=== PATIENT | female | born 1950 | race Caucasian/White ===

== ENCOUNTER 2016-10-03 19:27 | Inpatient (IN) | payer SELFPAY ==
--- NOTE | 2016-10-03 20:40 | RAD ---
Indication: Dizziness. CT of the brain was performed without IV contrast. Comparison is made with previous exam dated August 01, 2014. Ventricular structures are midline. No midline shift is noted. The extra-axial spaces are unremarkable. Hypodensity is noted in the right caudate nucleus and right frontal lobe as well as in the right occipital lobe. These likely represents old infarcts. No evidence of mass effect is noted in these areas. The left cerebrum is otherwise unremarkable. Brainstem and posterior fossa are unremarkable. Paranasal sinuses and mastoid air cells are well aerated. IMPRESSION: HYPODENSITIES IN THE RIGHT CAUDATE NUCLEUS AND RIGHT OCCIPITAL LOBE LIKELY REPRESENTS ENCEPHALOMALACIA FROM PRIOR INFARCT. NO ACUTE CHANGES ARE NOTED.
[2016-10-03 20:56] LABS: Hematocrit 45 % (35-47); Mean Corpuscular HGB Conc 34 g/dl (31-36); Mean Corpuscular Hemoglobin 30 pg (27-31); Mean Corpuscular Volume 90 fL (80-97); Mean Platelet Volume 8 um3 (7.4-10.4); Red Blood Count 4.98 10^6/ul (4.0-5.4); Red Cell Distribution Width 13 % (10.5-15); White Blood Count 8.1 10^3/ul (3.5-10.8)
[2016-10-03 21:06] LABS: PCO2 Arterial 55 mmHg (35-45)
[2016-10-03 21:13] LABS: Albumin 3.9 g/dL (3.2-5.2); Calcium 9.4 mg/dL (8.6-10.3); EGFR African American 93.1 (>60); EGFR Non-African American 72.4 (>60); Globulin 2.5 g/dL (2-4); Magnesium 1.7 mg/dL (1.9-2.7); Potassium 3.6 mmol/L (3.5-5.0); Total Bilirubin 0.4 mg/dL (0.2-1.0); Total Protein 6.4 g/dL (6.4-8.9)
[2016-10-03 21:14] LABS: Troponin I 0.01 ng/mL (<0.04)
--- NOTE | 2016-10-03 21:40 | RAD ---
Indication: Confusion. Single frontal view of the chest performed at 2045 hours was reviewed. Comparison is made with previous exam dated July 21, 2015. No mediastinal shift is noted. Heart is of normal size and configuration. Lung singer appear clear. IMPRESSION: NO ACTIVE CARDIOPULMONARY DISEASE IS NOTED.
[2016-10-03 21:44] LABS: TSH (Thyroid Stimulating Horm) 1.59 mcIU/mL (0.34-5.60)
[2016-10-03] MEDS ORDERED: Albuterol/Ipratropium NEB.SOL* Albuterol 2.5 MG/Ipratropium 0.5 MG 3 ML INH ONE (21:52)
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
[2016-10-03] MEDS ORDERED: methylPREDNISolone 125 MG* 2 ML VIAL IV ONE (21:54)
[2016-10-03] MEDS: NS 0.9% 1000 ML* 1,000 ML IV SCH (23:20)
[2016-10-04] MEDS: Heparin VIAL(*) 5000 UNITS/ML VIAL (FIVE THOUSAND) SUBCUT SCH ×3 (05:26→21:30)
[2016-10-04] MEDS: NS 0.9% 1000 ML* 1,000 ML IV SCH (11:23)
[2016-10-04] MEDS: hydrALAZINE IV* 20 MG/ML VIAL IV SLOW PU PRN ×2 (13:02→20:15)
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
[2016-10-04] MEDS: HYDROmorphone TAB* 2 MG PO PRN ×2 (18:30→22:53)
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
[2016-10-04] MEDS: Aspirin EC TAB* 325 MG PO SCH (22:45)
[2016-10-04] MEDS: Propranolol TAB* 20 MG PO SCH (22:46)
[2016-10-04] MEDS: Losartan TAB* 25 MG PO SCH (22:46)
[2016-10-04 22:48] LABS: Benzodiazepine Urine Screen None Detected (None Detect)
[2016-10-05] MEDS: Metoprolol Tartrate IV* 1 MG/ML 5 ML VIAL IV PRN ×2 (00:37→06:35)
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
[2016-10-05] MEDS ORDERED: hydrALAZINE IV* 20 MG/ML VIAL IV SLOW PU ONE (03:15)
[2016-10-05] MEDS: HYDROmorphone TAB* 2 MG PO PRN ×3 (03:26→17:01)
[2016-10-05] MEDS: amLODIPine TAB* 5 MG PO SCH (04:52)
[2016-10-05] MEDS: NS 0.9% 1000 ML* 1,000 ML IV SCH (05:08)
[2016-10-05] MEDS: Heparin VIAL(*) 5000 UNITS/ML VIAL (FIVE THOUSAND) SUBCUT SCH ×3 (05:08→20:56)
[2016-10-05 05:38] LABS: BUN/Creatinine Ratio 17.9 (8-20); Calcium 9.3 mg/dL (8.6-10.3); EGFR African American 138.5 (>60); EGFR Non-African American 107.7 (>60)
[2016-10-05] MEDS: cloNIDine TAB* 0.1 MG PO SCH ×3 (06:49→20:32)
[2016-10-05] MEDS ORDERED: Potassium Chlor TAB* 20 MEQ TAB.ER PO ONE (07:29)
[2016-10-05] MEDS: KCL 20 MEQ/100 ML IVPREMIX* 20 MEQ/100 ML BAG IV SCH ×2 (08:07→10:30)
[2016-10-05] MEDS: Aspirin EC TAB* 325 MG PO SCH (08:07)
[2016-10-05] MEDS: Losartan TAB* 25 MG PO SCH (08:08)
[2016-10-05] MEDS: Propranolol TAB* 20 MG PO SCH (08:08)
[2016-10-05] MEDS: hydrALAZINE IV* 20 MG/ML VIAL IV SLOW PU PRN (10:30)
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
--- NOTE | 2016-10-05 16:08 | RAD ---
INDICATION: Slurred speech. COMPARISON: Comparison is made with a prior MRI of the brain from August 03, [address] of the brain from October 03, 2016. TECHNIQUE: Sagittal T1, axial T1, T2, susceptibility, FLAIR and diffusion weighted images were obtained. FINDINGS: The ventricles, cisterns and sulci appear prominent consistent with age-related atrophy. There are small areas of encephalomalacia present within the right frontal lobe, right caudate nucleus and right occipital lobe most consistent with prior infarcts. No other focal abnormality or mass effect is seen. No areas of restricted diffusion are present. There is no evidence for acute infarct or hemorrhage. The visualized portion of the paranasal sinuses and mastoid air cells appear clear. IMPRESSION: MULTIPLE OLD INFARCTS, NO EVIDENCE FOR ACUTE FINDING.
[2016-10-05] MEDS ORDERED: Spiriva Inhaler DEVICE* 1 EACH DEVICE ONE (20:00)
[2016-10-05] MEDS: Propranolol TAB* 80 MG PO SCH (20:56)
[2016-10-05] MEDS ORDERED: Beclomethasone 80 MCG MDI(NF) 80 MCG/PUFF MDI INH SCH (21:00)
[2016-10-05] MEDS ORDERED: Budesonide/Formote 160/4.5(NF) MDI INH SCH (21:00)
[2016-10-06] MEDS: HYDROmorphone TAB* 2 MG PO PRN ×4 (00:34→14:24)
[2016-10-06] MEDS: hydrALAZINE IV* 20 MG/ML VIAL IV SLOW PU PRN (00:35)
[2016-10-06] MEDS: Mometasone/Formoter 200/5 MDI INH SCH ×3 (04:43→19:49)
[2016-10-06 05:16] LABS: BUN/Creatinine Ratio 20.6 (8-20); Calcium 9.5 mg/dL (8.6-10.3); EGFR African American 120.9 (>60); Magnesium 1.5 mg/dL (1.9-2.7); Potassium 3.5 mmol/L (3.5-5.0)
[2016-10-06] MEDS: Heparin VIAL(*) 5000 UNITS/ML VIAL (FIVE THOUSAND) SUBCUT SCH ×3 (05:42→21:44)
[2016-10-06] MEDS: Losartan TAB* 25 MG PO SCH (08:22)
[2016-10-06] MEDS: Aspirin EC TAB* 325 MG PO SCH (08:22)
[2016-10-06] MEDS: cloNIDine TAB* 0.1 MG PO SCH ×3 (08:23→21:39)
[2016-10-06] MEDS: Atorvastatin* 20 MG TAB PO SCH (08:23)
[2016-10-06] MEDS: amLODIPine TAB* 5 MG PO SCH (08:23)
[2016-10-06] MEDS: Potassium Chlor TAB* 20 MEQ TAB.ER PO SCH (08:23)
[2016-10-06] MEDS: Triamterene/HCTZ 37.5-25 MG* CAP PO SCH (08:53)
[2016-10-06] MEDS: Propranolol TAB* 80 MG PO SCH ×2 (08:53→21:39)
[2016-10-06] MEDS: Tiotropium CAP.INH* CAP.INH/18 MCG INH SCH (09:30)
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
[2016-10-06] MEDS: HYDROmorphone TAB* 4 MG PO PRN (21:39)
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
[2016-10-07] MEDS: HYDROmorphone TAB* 4 MG PO PRN ×2 (03:51→08:34)
[2016-10-07] MEDS: Heparin VIAL(*) 5000 UNITS/ML VIAL (FIVE THOUSAND) SUBCUT SCH ×2 (05:30→14:10)
[2016-10-07] MEDS ORDERED: Omeprazole CAP* 20 MG PO SCH (07:30)
[2016-10-07] MEDS: Mometasone/Formoter 200/5 MDI INH SCH (07:42)
[2016-10-07] MEDS: Tiotropium CAP.INH* CAP.INH/18 MCG INH SCH (07:44)
[2016-10-07] MEDS: Triamterene/HCTZ 37.5-25 MG* CAP PO SCH (08:30)
[2016-10-07] MEDS: Losartan TAB* 25 MG PO SCH (08:30)
[2016-10-07] MEDS: Atorvastatin* 20 MG TAB PO SCH ×2 (08:32→08:43)
[2016-10-07] MEDS: Aspirin EC TAB* 325 MG PO SCH (08:32)
[2016-10-07] MEDS: Propranolol TAB* 80 MG PO SCH (08:32)
[2016-10-07] MEDS: amLODIPine TAB* 5 MG PO SCH (08:33)
[2016-10-07] MEDS: cloNIDine TAB* 0.1 MG PO SCH ×2 (08:33→14:10)
[2016-10-07] MEDS: Potassium Chlor TAB* 20 MEQ TAB.ER PO SCH (08:33)
[2016-10-07] MEDS ORDERED: Pregabalin CAP(*) 100 MG PO SCH (09:00)
[2016-10-07] MEDS ORDERED: HYDROmorphone TAB* 4 MG PO PRN (11:55)
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
[2016-10-07 15:37] VITALS: BP 117/75
[2016-10-09] MEDS ORDERED: fentaNYL PATCHs 100 MCG/HR TRANSDERM SCH (09:00)
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
== END 2016-10-07 18:40 | disposition left against medical advice (07) | DRG 894 ==
LOC: ED 19:27 → MED 22:26 → OBSVTOIN 10-04 12:32 → MEDTELE 10-04 20:00
PROVIDERS: ADMIT Internal Medicine; ATTEND Internal Medicine
DX: F11.90 Opioid use, unspecified, uncomplicated (principal); G93.89 Other specified disorders of brain; I69.354 Hemiplegia and hemiparesis following cerebral infarction affecting left non-dominant side; E66.01 Morbid (severe) obesity due to excess calories; J44.9 Chronic obstructive pulmonary disease, unspecified; I10 Essential (primary) hypertension; G89.29 Other chronic pain; M54.9 Dorsalgia, unspecified; I25.10 Atherosclerotic heart disease of native coronary artery without angina pectoris; E78.00 Pure hypercholesterolemia, unspecified; K21.9 Gastro-esophageal reflux disease without esophagitis; M47.9 Spondylosis, unspecified; M19.012 Primary osteoarthritis, left shoulder; M19.011 Primary osteoarthritis, right shoulder; M17.0 Bilateral primary osteoarthritis of knee; G43.909 Migraine, unspecified, not intractable, without status migrainosus; G25.0 Essential tremor; R09.02 Hypoxemia; R47.81 Slurred speech; E87.6 Hypokalemia; F32.9 Major depressive disorder, single episode, unspecified; Z96.652 Presence of left artificial knee joint; F17.210 Nicotine dependence, cigarettes, uncomplicated; R40.2412 Glasgow coma scale score 13-15, at arrival to emergency department; E78.5 Hyperlipidemia, unspecified; Z68.25 Body mass index [BMI] 25.0-25.9, adult; Z90.721 Acquired absence of ovaries, unilateral; Z82.49 Family history of ischemic heart disease and other diseases of the circulatory system; Z88.6 Allergy status to analgesic agent; Z88.8 Allergy status to other drugs, medicaments and biological substances; Z85.118 Personal history of other malignant neoplasm of bronchus and lung; Z92.3 Personal history of irradiation; Z98.1 Arthrodesis status; Z90.49 Acquired absence of other specified parts of digestive tract; Z95.5 Presence of coronary angioplasty implant and graft; Z86.14 Personal history of Methicillin resistant Staphylococcus aureus infection; Z80.9 Family history of malignant neoplasm, unspecified; Z79.51 Long term (current) use of inhaled steroids
CPT/HCPCS: 36415; 36600; 70450; 70551; 71010; 80048; 80053; 80061; 80307; 82140; 82803; 83605; 83735; 83880; 84443; 84484; 85025; 85610; 85730; 93005; 94640; 94760; 94762; 99406; A9270-GY; G0378; J0360; J1644; J2930; J3480

== ENCOUNTER 2016-10-09 21:18 | Emergency (ER) | payer MEDICARE ==
[2016-10-09] MEDS ORDERED: NS 0.9% 1000 ML* 1,000 ML IV ONE (22:32)
[2016-10-09 22:33] LABS: Hematocrit 49 % (35-47); Hemoglobin 15.9 g/dl (12.0-16.0); Mean Corpuscular HGB Conc 33 g/dl (31-36); Mean Corpuscular Hemoglobin 30 pg (27-31); Mean Corpuscular Volume 91 fL (80-97); Mean Platelet Volume 9 um3 (7.4-10.4); Red Blood Count 5.32 10^6/ul (4.0-5.4); Red Cell Distribution Width 14 % (10.5-15); White Blood Count 9.3 10^3/ul (3.5-10.8)
[2016-10-09 22:43] LABS: ALT 44 U/L (7-52); AST 35 U/L (13-39); Albumin 4.1 g/dL (3.2-5.2); Alkaline Phosphatase 97 U/L (34-104); Anion Gap 9 mmol/L (2-11); Blood Urea Nitrogen 31 mg/dL (6-24); CO2 Carbon Dioxide 30 mmol/L (22-32); Calcium 9.3 mg/dL (8.6-10.3); Chloride 101 mmol/L (101-111); EGFR African American 50.2 (>60); Globulin 2.8 g/dL (2-4); Glucose 91 mg/dL (70-100); Potassium 3.7 mmol/L (3.5-5.0); Sodium 140 mmol/L (133-145); Total Protein 6.9 g/dL (6.4-8.9)
[2016-10-09 22:51] LABS: Creatine Kinase 47 U/L (10-223)
[2016-10-09 22:52] LABS: Troponin I 0.02 ng/mL (<0.04)
[2016-10-09 23:43] LABS: Alcohol < 10 mg/dL (<10)
[2016-10-10 02:47] LABS: Urine Bilirubin Negative (Negative); Urine Glucose Negative (Negative); Urine Nitrite Negative (Negative)
[2016-10-10 02:58] LABS: Benzodiazepine Urine Screen None Detected (None Detect)
--- NOTE | 2016-10-10 05:01 | ED ---
Felix Hart Alok, scribed for Hugo Cardona MD on 10/09/16 at 2306 . Adult Trauma - HPI Summary HPI Summary: 66F presents to the ED BIBA following fall from a standing position in her kitchen. Pt reportedly was reaching for something in the freezer when she lost her balance and fell with her walker falling on her right-side hip. Pt was unable to get up and used her life-alert to notify EMS. Pt was reportedly on the floor for approximately 15 minutes before being picked up by EMS. Pt states she was unable to get up due to chronic knee weakness. Pt notes chronic back pain. Pt denies head injury. Pt was last discharged from [facility] just yesterday and notes loss of balance all day today. Pt denies dizziness or confusion today. Pt denies neck pain, hip pain or knee pain. Pt denies CP or SOB. PMHx includes HTN. PSHx includes a knee replacement. Pt started her 3 day fentanyl patch yesterday and states she has not taken her regular Dilaudid today. Pt is on home O2. Pt takes aspirin but no other anti-coagulants. Pt smokes tobacco occasionally. - History of Current Complaint Chief Complaint: EDGeneral Stated Complaint: FALL Time Seen by Provider: 10/09/16 21:43 Hx Obtained From: Patient ?: No Mechanism of Injury: Fall Ambulatory at the Scene: Yes Onset/Duration: Started Hours Ago, Traumatic, Still Present Onset of Pain: Immediate Onset Severity: Moderate Current Severity: Moderate Pain Intensity: 0 Pain Scale Used: 0-10 Numeric Location: Abdomen/Pelvis Aggravating Factor(s): Nothing Alleviating Factor(s): Nothing Associated Signs & Symptoms: Negative: SOB, Chest Pain - Additional Pertinent History Primary Care Physician: [id number] - Allergy/Home Medications Allergies/Adverse Reactions: Allergies Allergy/AdvReac Type Severity Reaction Status Date / Time Adhesive Tape Allergy Intermediate Blisters Verified 08/06/16 14:39 Codeine Allergy Intermediate See Comment Verified 08/06/16 14:39 PMH/Surg Hx/FS Hx/Imm Hx Endocrine/Hematology History: Denies: Hx Diabetes Cardiovascular History: Reports: Hx Coronary Artery Disease, Hx Hypercholesterolemia, Hx Hypertension, Hx Rheumatic Fever, Other Cardiovascular Problems/Disorders - DR. MELÉNDEZ FOLLOWS Denies: Hx Congestive Heart Failure, Hx Pacemaker/ICD Respiratory History: Reports: Hx Asthma, Hx Chronic Obstructive Pulmonary Disease (COPD), Other Respiratory Problems/Disorders - LUNG CA GI History: Reports: Hx Gall Bladder Disease, Hx Gastroesophageal Reflux Disease - ON MEDICATION FOR History: Reports: Hx Kidney Infection Denies: Hx Renal Disease Musculoskeletal History: Reports: Hx Arthritis - BACK, LEFT SHOULDER, KNEES, RIGHT SHOULDER, Hx Back Problems, Hx Bursitis, Hx Tendonitis, Other Musculoskeletal History - Chronic low back pain, SURGERY ON RIGHT LEG FEMUR AND ANKLE. LUMBAR FUSION Sensory History: Reports: Hx Contacts or Glasses Denies: Hx Hearing Aid Opthamlomology History: Reports: Hx Contacts or Glasses Neurological History: Reports: Hx Headaches - HISTORY OF, Hx Migraine - HISTORY OF, Other Neuro Impairments/Disorders - left foot/leg numbness for months Psychiatric History: Reports: Hx Depression Denies: Hx Panic Disorder - Cancer History Cancer Type, Location and Year: LUNG CA 2014 Hx Chemotherapy: No Hx Radiation Therapy: Yes - W/ DR ALVAREZ Hx Palliative Cancer Treatment: No - Surgical History Surgery Procedure, Year, and Place: Tonsillectomy;. Appendectomy A CHILD;. D&C x4. Right leg fracture x 4 surgeries -[facility] (PINS TO RIGHT HIP. RIGHT LARGE CALCIUM DEPOSIT FORM FROM PIN PLACMENT REMOVED). Bunionectomy left foot. Ovarian Cystectomy-[facility]. Lumbar x2(1ST - FUSION; SECOND - SURG DUE TO MRSA). Cardiac Cath withStent Placement X4 STENTS ( [facility] - MR CONDITIONAL 5 FOR UP TO 3T -PER ENT Surgical 11/26/15). LEFT BREAST BIOPSY WITH CLIP - BENIGN -TUMOR REMOVED AT AGE 5-BENIGN. Left knee Arthroscopy-[facility]; Left Knee TKR. GALLBLADDER REMOVED;. Stent placement in Pancrease. 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 Denies: Hx Clostridium Difficile, Hx Hepatitis, Hx Human Immunodeficiency Virus (HIV), Hx Shingles, Hx Tuberculosis, Hx Known/Suspected VRE, Hx Known/ Suspected VRSA, History Other Infectious Disease, Traveled Outside the [place] in Last 30 Days - Family History Known Family History: Positive: Other - [place] - Social History Occupation: Retired Alcohol Use: None Substance Use Type: Reports: None Substance Use Comment - Amount & Last Used: fentanyl patch and hydromorphone Hx Tobacco Use: Yes - 08/2014 Smoking Status (MU): Light Every Day Tobacco Smoker Type: Cigarettes Amount Used/How Often: 1+ PPD X 40+ YEARS Length of Time of Smoking/Using Tobacco: 40 + years Have You Smoked in the Last Year: Yes Review of Systems Negative: Fever Negative: Chest Pain Negative: Shortness Of Breath Negative: Other - Neck, knee, or hip pain. Positive: chronic back pain Neurological: Other - Loss of balance. Negative: dizziness, confusion All Other Systems Reviewed And Are Negative: Yes Physical Exam - Summary Physical Exam Summary: The patient is well-nourished in no acute distress and in no acute pain. The skin is warm and dry and skin color reflects adequate perfusion. HEENT: The head is normocephalic and atraumatic. The pupils are equal and reactive. The conjunctivae are clear and without drainage. Nares are patent and without drainage. Mouth reveals moist mucous membranes and the throat is without erythema and exudate. Neck is supple with full range of motion and non-tender. There are no carotid bruits. There is no neck vein distension. No neck pain Respiratory: Chest is non-tender. Lungs are clear to auscultation and breath sounds are symmetrical and equal. Cardiovascular: Hear is regular rate and rhythm. There is no murmur or rub auscultated. There is no peripheral edema and pulses are symmetrical and equal. Abdomen: The abdomen is soft and non-tender. There are normal bowel sounds heard in all four quadrants and there is no organomegaly palpated. Musculoskeletal: Tenderness to lumbar spine. Extremities are non-tender with full range of motion and no weakness. There is good capillary refill. There is no peripheral edema or calf tenderness elicited. Hips non-tender full range of motion intact. Knees no swelling. Neurological: Patient is alert and oriented to person, place and time. The patient has symmetrical motor strength in all four extremities. Cranial nerves are grossly intact. Deep tendon reflexes are symmetrical and equal in all four extremities. Psychiatric: Speech appropriate. Triage Information Reviewed: Yes Vital Signs On Initial Exam: Initial Vitals Temp Pulse Resp BP Pulse Ox 97.7 F 66 16 114/78 97 10/09/16 21:18 10/09/16 21:18 10/09/16 21:18 10/09/16 21:18 10/09/16 21:18 Vital Signs Reviewed: Yes Diagnostics - Vital Signs Vital Signs Temp Pulse Resp BP Pulse Ox 10/09/16 22:00 62 14 91 10/09/16 21:35 61 9 89 10/09/16 21:20 97.7 F 66 16 114/78 97 10/09/16 21:18 97.7 F 66 16 114/78 97 - Laboratory Lab Results: Lab Results 10/09/16 10/09/16 Range/Units 21:45 21:45 WBC 9.3 (3.5-10.8) 10^3/ul RBC 5.32 (4.0-5.4) 10^6/ul Hgb 15.9 (12.0-16.0) g/dl Hct 49 H (35-47) % MCV 91 (80-97) fL MCH 30 (27-31) pg MCHC 33 (31-36) g/dl RDW 14 (10.5-15) % Plt Count 194 (150-450) 10^3/ul MPV 9 (7.4-10.4) um3 Neut % (Auto) 74.0 (38-83) % Lymph % (Auto) 17.1 L (25-47) % [place] % (Auto) 7.5 (1-9) % Eos % (Auto) 0.8 (0-6) % Baso % (Auto) 0.6 (0-2) % Absolute Neuts (auto) 6.9 (1.5-7.7) 10^3/ul Absolute Lymphs (auto) 1.6 (1.0-4.8) 10^3/ul Absolute Monos (auto) 0.7 (0-0.8) 10^3/ul Absolute Eos (auto) 0.1 (0-0.6) 10^3/ul Absolute Basos (auto) 0.1 (0-0.2) 10^3/ul Absolute Nucleated RBC 0.01 10^3/ul Nucleated RBC % 0.1 Sodium 140 (133-145) mmol/L Potassium 3.7 (3.5-5.0) mmol/L Chloride 101 (101-111) mmol/L Carbon Dioxide 30 (22-32) mmol/L Anion Gap 9 (2-11) mmol/L BUN 31 H (6-24) mg/dL Creatinine 1.35 H (0.51-0.95) mg/dL Est GFR ( Amer) 50.2 (>60) Est GFR (Non-Af Amer) 39.0 (>60) BUN/Creatinine Ratio 23.0 H (8-20) Glucose 91 (70-100) mg/dL Calcium 9.3 (8.6-10.3) mg/dL Total Bilirubin 0.40 (0.2-1.0) mg/dL AST 35 (13-39) U/L ALT 44 (7-52) U/L Alkaline Phosphatase 97 (34-104) U/L Total Creatine Kinase Pending Troponin I Pending Total Protein 6.9 (6.4-8.9) g/dL Albumin 4.1 (3.2-5.2) g/dL Globulin 2.8 (2-4) g/dL Albumin/Globulin Ratio 1.5 (1-3) Serum Alcohol Pending Result Diagrams: 10/09/16 21:45 10/09/16 21:45 Lab Statement: Any lab studies that have been ordered have been reviewed, and results considered in the medical decision making process. - EKG 2126 Cardiac Rate: NL - 63 bpm EKG Rhythm: Sinus Rhythm EKG Interpretation: L-axis. No STEMI. Re-Evaluation - Re-Evaluation First Eval Re-Evaluation Time: 01:31 Change: Improved Comment: Low O2 sat when supine. Pt wishes to go home. Will attempt to ambulate pt Second Eval Re-Evaluation Time: 03:26 Change: Improved Comment: Pt ambulated and would like to go home. Third Eval Re-Evaluation Time: 04:31 Change: Unchanged Comment: Pt feels unsafe going home and will remain at ED for social work specialist consult. Adult Trauma Course/Dx - Course Course Of Treatment: Pt presented following fall from standing position. Pt denied pain. Pt ambulated and will be discharged home with instructions to FU with PCP. Pt feels unsafe going home and will remain at ED for social work specialist consult. - Diagnoses Provider Diagnoses: Dehydration, Ambulatory dysfunction, Fall Discharge - Discharge Plan Condition: Stable Disposition: HOME Patient Education Materials: Fall Prevention (ED), Dehydration (ED) Referrals: Augustin Jeong MD [Primary Care Provider] - Additional Instructions: Please follow up with your primary care provider The documentation as recorded by the Felix stroud Alok accurately reflects the service I personally performed and the decisions made by me, Hugo Cardona MD.
[2016-10-10 07:15] VITALS: BP 137/93
== END 2016-10-10 08:09 | disposition home or self-care (01) ==
LOC: ED 21:18
DX: E86.0 Dehydration (principal); Z91.81 History of falling; F17.210 Nicotine dependence, cigarettes, uncomplicated
CPT/HCPCS: 36415; 80053; 80307; 80320; 81003; 82550; 84484; 85025; 93005; 96360; 99283; G0480

== ENCOUNTER 2016-11-08 00:18 | Inpatient (IN) | payer MEDICARE ==
[2016-11-08] MEDS ORDERED: NS 0.9% 1000 ML* 1,000 ML IV SCH (00:45)
[2016-11-08] MEDS ORDERED: Naloxone* 0.4 MG/ML 1 ML VIAL IV PUSH ONE (01:27)
[2016-11-08] MEDS ORDERED: Naloxone* 0.4 MG/ML 1 ML VIAL ONE (01:28)
[2016-11-08] MEDS ORDERED: Naloxone Nasal Spray* 4 MG/0.1 ML NASAL.SPR NASAL ONE (01:47)
[2016-11-08] MEDS: Naloxone Nasal Spray* 4 MG/0.1 ML NASAL.SPR NASAL PRN ×2 (01:53→02:10)
[2016-11-08] MEDS ORDERED: Dexamethasone IV* 10 MG in NS 0.9% 50 ML* 50 ML IVPB ONE (02:20)
[2016-11-08] MEDS ORDERED: Acetaminophen SUPP* 650 MG SUPP PR PRN (02:20)
[2016-11-08] MEDS ORDERED: Albuterol 2.5 MG/3 ML NEB.SOL* (0.083%) INH PRN (02:20)
[2016-11-08] MEDS ORDERED: Ondansetron INJ* 2 MG/ML VIAL IV PRN (02:24)
--- NOTE | 2016-11-08 02:29 | CONSULT ---
Neurological HPI - HPI Summary HPI Summary: 66F hx of lung Ca, R cortical CVA, CAD, & COPD who was admitted to [facility] 10/04-10/2016 for an episode where she was found in her car unresponsive that was ultimately felt to be 2nd excessive narcotics. In fact an MRI during that stay was read as no acute findings. Currently she is responsive only to noxious stimuli and no family is available. Per ED staff, she was found by her son to be unresponsive. EMS was called and found her to be responsive to painful stimuli. Upon arrival to ED she was noted to be wearing a 100mcg fentanyl patch which is unusual as she was noted to have a 75mcg patch at her last admission and recommendation at that time was to decrease her narcotics. Removal of the patch and IV naloxone did not improve her alertness. CT brain identifies a new hemorrhagic lesion in the R frontal lobe suspicious for hemorrhagic mass. - History of Current Complaint Hx Obtained From: Patient Hx Last Menstrual Period: unknown Pain Intensity: 0 - Additional Pertinent History Primary Care Physician: KEENA - Allergy/Home Medications Allergies/Adverse Reactions: Allergies Allergy/AdvReac Type Severity Reaction Status Date / Time Adhesive Tape Allergy Intermediate Blisters Verified 11/04/16 13:45 Codeine Allergy Intermediate See Comment Verified 11/04/16 13:45 Home Medications: Home Medications Medication Instructions Recorded Confirmed Type Flaxseed (Linseed) [Flax Seed Oil] 1,000 mg PO DAILY 08/01/14 11/04/16 History Pantoprazole TAB (NF) [Protonix 40 mg PO DAILY 08/01/14 11/04/16 History TAB (NF)] Propranolol TAB* [Inderal TAB*] 80 mg PO BID 08/01/14 11/04/16 History Rosuvastatin (NF) [Crestor (NF)] 5 mg PO DAILY 08/01/14 11/04/16 History fentaNYL PATCHs 100 MCG/HR* 100 mcg TOPICAL Q72HR 08/01/14 11/04/16 History [Duragesic Patch 100 Mcg/Hr *] Primidone TAB(*) [Mysoline TAB(*)] 100 mg PO BID 11/07/14 11/04/16 History Tiotropium CAP.INH* [Spiriva 1 cap.inh INH QAM 11/07/14 11/04/16 History CAP.INH*] Meloxicam(NF) [Mobic(NF)] 7.5 mg PO DAILY 11/14/14 11/04/16 History Pregabalin [Lyrica] 150 mg PO DAILY 11/14/14 11/04/16 History Beclomethasone 80 MCG MDI(NF) 1 puff INH BID 10/05/16 11/04/16 History [Qvar 80 MCG MDI(NF)] Budesonide/Formote 160/4.5(NF) 2 puff INH BID 10/05/16 11/04/16 History [Symbicort 160/4.5 (NF)] Multivitamins/Minerals TAB* [Thera 1 tab PO BID 10/05/16 11/04/16 History M Plus TAB*] Potassium Chloride Microencaps 20 meq PO DAILY 10/05/16 11/04/16 History [Klor-Con M20] Varenicline (NF) [Chantix 1 MG TAB 1 mg PO BID 10/05/16 11/04/16 History (NF)] HYDROmorphone TAB* [Dilaudid TAB*] 4 mg PO Q4H PRN 10/14/16 11/04/16 History Hydrochlorothiazide TAB* 1 dose PO DAILY 11/04/16 11/04/16 History Losartan TAB* [Cozaar TAB*] 25 mg PO DAILY 11/04/16 11/04/16 History Allergies: Allergies Allergy/AdvReac Type Severity Reaction Status Date / Time Adhesive Tape Allergy Intermediate Blisters Verified 11/04/16 13:45 Codeine Allergy Intermediate See Comment Verified 11/04/16 13:45 - Family History Family History: - Cancer History Cancer Type, Location and Year: LUNG CA 2014 Hx Chemotherapy: No Hx Radiation Therapy: Yes - W/ DR ALVAREZ Hx Palliative Cancer Treatment: No - Surgical History Surgery Procedure, Year, and Place: Tonsillectomy;. Appendectomy A CHILD;. D&C x4. Right leg fracture x 4 surgeries -[facility] (PINS TO RIGHT HIP. RIGHT LARGE CALCIUM DEPOSIT FORM FROM PIN PLACMENT REMOVED). Bunionectomy left foot. Ovarian Cystectomy-[facility]. Lumbar x2(1ST - FUSION; SECOND - SURG DUE TO MRSA). Cardiac Cath withStent Placement X4 STENTS ( [employer] [facility] - MR CONDITIONAL 5 FOR UP TO 3T -PER [employer] 11/26/15). LEFT BREAST BIOPSY WITH CLIP - BENIGN -TUMOR REMOVED AT AGE 5-BENIGN. Left knee Arthroscopy-[facility]; Left Knee TKR. GALLBLADDER REMOVED;. Stent placement in Pancrease. 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 Denies: Hx Clostridium Difficile, Hx Hepatitis, Hx Human Immunodeficiency Virus (HIV), Hx Shingles, Hx Tuberculosis, Hx Known/Suspected VRE, Hx Known/ Suspected VRSA, History Other Infectious Disease, Traveled Outside the [place] in Last 30 Days - Family History Known Family History: Positive: Other - CA - Social History Alcohol Use: None Substance Use Type: Reports: None Substance Use Comment - Amount & Last Used: fentanyl patch and hydromorphone Hx Tobacco Use: Yes - 08/2014 Smoking Status (MU): Current Some Day Smoker Type: Cigarettes Amount Used/How Often: 1-2 cigarettes/week Length of Time of Smoking/Using Tobacco: 40 + years Have You Smoked in the Last Year: Yes ROS Endocrine/Hematology History: Denies: Hx Diabetes Cardiovascular History: Reports: Hx Coronary Artery Disease, Hx Hypercholesterolemia, Hx Hypertension, Hx Rheumatic Fever, Other Cardiovascular Problems/Disorders - DR. MELÉNDEZ FOLLOWS Denies: Hx Congestive Heart Failure, Hx Pacemaker/ICD Respiratory History: Reports: Hx Asthma, Hx Chronic Obstructive Pulmonary Disease (COPD), Other Respiratory Problems/Disorders - LUNG CA GI History: Reports: Hx Gall Bladder Disease, Hx Gastroesophageal Reflux Disease - ON MEDICATION FOR History: Reports: Hx Kidney Infection Denies: Hx Renal Disease Musculoskeletal History: Reports: Hx Arthritis - BACK, LEFT SHOULDER, KNEES, RIGHT SHOULDER, Hx Back Problems, Hx Bursitis, Hx Tendonitis, Other Musculoskeletal History - Chronic low back pain, SURGERY ON RIGHT LEG FEMUR AND ANKLE. LUMBAR FUSION Sensory History: Reports: Hx Contacts or Glasses Denies: Hx Hearing Aid Opthamlomology History: Reports: Hx Contacts or Glasses Neurological History: Reports: Hx Headaches - HISTORY OF, Hx Migraine - HISTORY OF, Other Neuro Impairments/Disorders - left foot/leg numbness for months Psychiatric History: Reports: Hx Depression Denies: Hx Panic Disorder Physical Exam - Physical Exam Eye Exam: bilateral eye: EOMI ENT Exam: normal ENT inspection Respiratory: Chest non-tender Cardiovascular/Chest: regular rate, rhythm Gastrointestinal/Abdominal: soft Back Exam: normal inspection DTR: bicep (R): 1+, bicep (L): 1+, tricep (R): 1+, tricep (L): 1+, knee (R): 1+ , knee (L): 1+, ankle (R): 1+, ankle (L): 1+ Skin Exam: normal color Lab Results - Lab Results Lab Results: Vital Signs Temp 98.6 F 11/08/16 06:00 Pulse 118 11/08/16 04:30 Resp 21 11/08/16 06:00 BP 124/90 11/08/16 06:00 Pulse Ox 95 11/08/16 04:30 Intake & Output 11/07/16 11/07/16 11/08/16 07:59 19:59 07:59 Weight 157 lb 13.616 oz Drowsy ,O x self only cranial nerves symmetric light reflex, /, pupils ~2mm/minimally reactive weak but intact/symmetric corneal reflex intact facial symmetry hearing unable to assess intact gag reflex tongue ML motor: skiver hand Bilateal and move BLE coordination unable to assess sensory unable to assess Abnormal Lab Results 11/08/16 11/08/16 11/08/16 02:40 02:40 02:40 WBC 10.8 RBC 5.40 Hgb 16.7 H Hct 51 H MCV 94 MCH 31 MCHC 33 RDW 16 H Plt Count 197 MPV 8 Neut % (Auto) 88.4 H Lymph % (Auto) 4.9 L [place] % (Auto) 5.7 Eos % (Auto) 0.4 Baso % (Auto) 0.6 Absolute Neuts (auto) 9.6 H Absolute Lymphs (auto) 0.5 L Absolute Monos (auto) 0.6 Absolute Eos (auto) 0 Absolute Basos (auto) 0.1 Absolute Nucleated RBC 0.01 Nucleated RBC % 0.1 INR (Anticoag Therapy) 0.96 APTT 29.9 Sodium 135 Potassium 4.3 Chloride 97 L Carbon Dioxide 30 Anion Gap 8 BUN 20 Creatinine 0.74 Est GFR ( Amer) 100.4 Est GFR (Non-Af Amer) 78.0 BUN/Creatinine Ratio 27.0 H Glucose 99 Lactic Acid Calcium 9.3 Magnesium 1.7 L Total Bilirubin 0.70 AST 34 ALT 17 Alkaline Phosphatase 86 Ammonia Total Creatine Kinase 1374 H CK-MB (CK-2) 46.8 H Troponin I 0.35 H* C-Reactive Protein 300.12 H B-Natriuretic Peptide Total Protein 6.5 Albumin 3.5 Globulin 3.0 Albumin/Globulin Ratio 1.2 Lipase 16 TSH 0.58 Urine Color Urine Appearance Urine pH Ur Specific [place] Urine Protein Urine Ketones Urine Blood Urine Nitrate Urine Bilirubin Urine Urobilinogen Ur Leukocyte Esterase Urine Glucose Urine Ascorbic Acid Salicylates < 2.50 Urine Opiates Screen Acetaminophen < 15 Ur Barbiturates Screen Ur Phencyclidine Scrn Ur Amphetamines Screen U Benzodiazepines Scrn Urine Cocaine Screen U Cannabinoids Screen Serum Alcohol < 10 11/08/16 11/08/16 11/08/16 02:40 02:40 04:30 WBC RBC Hgb Hct MCV MCH MCHC RDW Plt Count MPV Neut % (Auto) Lymph % (Auto) [place] % (Auto) Eos % (Auto) Baso % (Auto) Absolute Neuts (auto) Absolute Lymphs (auto) Absolute Monos (auto) Absolute Eos (auto) Absolute Basos (auto) Absolute Nucleated RBC Nucleated RBC % INR (Anticoag Therapy) APTT Sodium Potassium Chloride Carbon Dioxide Anion Gap BUN Creatinine Est GFR ( Amer) Est GFR (Non-Af Amer) BUN/Creatinine Ratio Glucose Lactic Acid 1.6 Calcium Magnesium Total Bilirubin AST ALT Alkaline Phosphatase Ammonia 25 Total Creatine Kinase CK-MB (CK-2) Troponin I C-Reactive Protein B-Natriuretic Peptide 162 H Total Protein Albumin Globulin Albumin/Globulin Ratio Lipase TSH Urine Color Urine Appearance Urine pH Ur Specific [place] Urine Protein Urine Ketones Urine Blood Urine Nitrate Urine Bilirubin Urine Urobilinogen Ur Leukocyte Esterase Urine Glucose Urine Ascorbic Acid Salicylates Urine Opiates Screen Presumptive positive H Acetaminophen Ur Barbiturates Screen Presumptive positive H Ur Phencyclidine Scrn None detected Ur Amphetamines Screen None detected U Benzodiazepines Scrn None detected Urine Cocaine Screen None detected U Cannabinoids Screen None detected Serum Alcohol 11/08/16 04:30 WBC RBC Hgb Hct MCV MCH MCHC RDW Plt Count MPV Neut % (Auto) Lymph % (Auto) [place] % (Auto) Eos % (Auto) Baso % (Auto) Absolute Neuts (auto) Absolute Lymphs (auto) Absolute Monos (auto) Absolute Eos (auto) Absolute Basos (auto) Absolute Nucleated RBC Nucleated RBC % INR (Anticoag Therapy) APTT Sodium Potassium Chloride Carbon Dioxide Anion Gap BUN Creatinine Est GFR ( Amer) Est GFR (Non-Af Amer) BUN/Creatinine Ratio Glucose Lactic Acid Calcium Magnesium Total Bilirubin AST ALT Alkaline Phosphatase Ammonia Total Creatine Kinase CK-MB (CK-2) Troponin I C-Reactive Protein B-Natriuretic Peptide Total Protein Albumin Globulin Albumin/Globulin Ratio Lipase TSH Urine Color Yellow Urine Appearance Clear Urine pH 5.0 Ur Specific [place] 1.016 Urine Protein Negative Urine Ketones 1+ H Urine Blood Negative Urine Nitrate Negative Urine Bilirubin Negative Urine Urobilinogen Negative Ur Leukocyte Esterase Negative Urine Glucose Negative Urine Ascorbic Acid * H Salicylates Urine Opiates Screen Acetaminophen Ur Barbiturates Screen Ur Phencyclidine Scrn Ur Amphetamines Screen U Benzodiazepines Scrn Urine Cocaine Screen U Cannabinoids Screen Serum Alcohol CT showed right frontal high desity lesion 2.1 cm x 2.6 cm with mild edema, no significant ML shift Assessment and Plan - Assessment -: 66F, hx of back pain and lung cancer, found unresponsive and confusion, current drowsy, confused, oriented only to self, following commands and move all 4s CT showed right frontal high desity lesion 2.1 cm x 2.6 cm with mild edema, no significant ML shift, suspected brain mets, other primary or abscess need to be rule out Plan: MRI brain with and without contrast, tumor protocol and DWI/ADC Decadron 4q6 Keppre 750 mg bid SBP less 140 mmhg Lab workup including WBC, ESR and CRP Oncology consult, CT Chest and Abd/Pelvic for mets workup and staging After MRI confirm brain lesion, will discuss about future plan: surgical resection vs radiosurgery SRS +/- WBRT. If abscess, she need drainage Discuss with primary team. please call for any questions
[2016-11-08 02:58] LABS: Hematocrit 51 % (35-47); Hemoglobin 16.7 g/dl (12.0-16.0); Mean Corpuscular HGB Conc 33 g/dl (31-36); Mean Corpuscular Hemoglobin 31 pg (27-31); Mean Corpuscular Volume 94 fL (80-97); Mean Platelet Volume 8 um3 (7.4-10.4); Red Cell Distribution Width 16 % (10.5-15); White Blood Count 10.8 10^3/ul (3.5-10.8)
[2016-11-08 03:02] LABS: Add Diff/Slide Review? Slide Review Added; Comments Flag Yes
[2016-11-08 03:07] LABS: Acetaminophen < 15 mcg/mL; Alcohol < 10 mg/dL (<10); Salicylate < 2.50 mg/dL (<30)
[2016-11-08 03:08] LABS: ALT 17 U/L (7-52); AST 34 U/L (13-39); Albumin 3.5 g/dL (3.2-5.2); Alkaline Phosphatase 86 U/L (34-104); Ammonia 25 mol/L (16-53); Anion Gap 8 mmol/L (2-11); Blood Urea Nitrogen 20 mg/dL (6-24); C Reactive Protein 300.12 mg/L (< 5.00); CO2 Carbon Dioxide 30 mmol/L (22-32); Calcium 9.3 mg/dL (8.6-10.3); Chloride 97 mmol/L (101-111); Creatine Kinase 1374 U/L (10-223); EGFR African American 100.4 (>60); Glucose 99 mg/dL (70-100); Lipase 16 U/L (11.0-82.0); Magnesium 1.7 mg/dL (1.9-2.7); Potassium 4.3 mmol/L (3.5-5.0); Sodium 135 mmol/L (133-145); Total Protein 6.5 g/dL (6.4-8.9)
[2016-11-08 03:12] LABS: Troponin I 0.35 ng/mL (<0.04)
[2016-11-08 03:13] LABS: B Type Natriuretic Peptide 162 pg/mL
[2016-11-08 03:17] LABS: TSH (Thyroid Stimulating Horm) 0.58 mcIU/mL (0.34-5.60)
--- NOTE | 2016-11-08 03:21 | HP ---
H&P (Free Text) History and Physical: PCP: Jessica Jeong MD Oncology: Placido Steele MD Date/Time of Evaluation: 11/08/2016 0245 CC: unresponsive HPI: Mrs Mccullough is a 66YO female HX lung CA, R cortical CVA, CAD, & COPD who was admitted to [facility] 10/04-10/07/2016 for an episode where she was found in her car unresponsive that was ultimately felt to be 2nd excessive narcotics. In fact an MRI during that stay was read as no acute findings. Currently she is responsive only to noxious stimuli and no family is available. Per ED staff, she was found by her son to be unresponsive. EMS was called and found her to be responsive to painful stimuli. Upon arrival to ED she was noted to be wearing a 100mcg fentanyl patch which is unusual as she was noted to have a 75mcg patch at her last admission and recommendation at that time was to decrease her narcotics. Removal of the patch and IV naloxone did not improve her alertness. CT brain WO identifies a new hemorrhagic lesion in the R frontal lobe suspicious for hemorrhagic mass. PMedHx lung CA R cortical CVA COPD CAD HTN HLD GERD depression chronic pain syndrome Ambulatory Orders Flaxseed (Linseed) [Flax Seed Oil] 1,000 mg PO DAILY 08/01/14 Pantoprazole TAB (NF) [Protonix TAB (NF)] 40 mg PO DAILY 08/01/14 Propranolol TAB* [Inderal TAB*] 80 mg PO BID 08/01/14 Rosuvastatin (NF) [Crestor (NF)] 5 mg PO DAILY 08/01/14 fentaNYL PATCHs 100 MCG/HR* [Duragesic Patch 100 Mcg/Hr *] 100 mcg TOPICAL Q72HR 08/01/14 Primidone TAB(*) [Mysoline TAB(*)] 100 mg PO BID 11/07/14 Tiotropium CAP.INH* [Spiriva CAP.INH*] 1 cap.inh INH QAM 11/07/14 Meloxicam(NF) [Mobic(NF)] 7.5 mg PO DAILY 11/14/14 Pregabalin [Lyrica] 150 mg PO DAILY 11/14/14 Beclomethasone 80 MCG MDI(NF) [Qvar 80 MCG MDI(NF)] 1 puff INH BID 10/05/16 Budesonide/Formote 160/4.5(NF) [Symbicort 160/4.5 (NF)] 2 puff INH BID 10/05/16 Multivitamins/Minerals TAB* [Thera M Plus TAB*] 1 tab PO BID 10/05/16 Potassium Chloride Microencaps [Klor-Con M20] 20 meq PO DAILY 10/05/16 Varenicline (NF) [Chantix 1 MG TAB (NF)] 1 mg PO BID 10/05/16 HYDROmorphone TAB* [Dilaudid TAB*] 4 mg PO Q4H PRN 10/14/16 Hydrochlorothiazide TAB* 1 dose PO DAILY 11/04/16 Losartan TAB* [Cozaar TAB*] 25 mg PO DAILY 11/04/16 Allergies Adhesive Tape Allergy (Intermediate, Verified 11/04/16 13:45) Blisters tegaderm post-procedure Codeine Allergy (Intermediate, Verified 11/04/16 13:45) See Comment general malaise PSurgHx appendectomy bilateral oophorectomy L knee surgery R ankle bimalleolar ORIF SocHx: former smoker w/ >40PYHX, no alcohol or recreational drugs; marital status and living situation unable to obtain; full code status FamHx: positive for CAD ROS: as above, otherwise reviewed and all were negative Constitutional: NAD, normally developed, morbidly obese white female vitals: Vital Signs Temp 36.3 C 11/08/16 00:29 Pulse 112 11/08/16 02:08 Resp 21 11/08/16 02:00 BP 160/120 11/08/16 02:08 Pulse Ox 92 11/08/16 02:08 Intake & Output 11/07/16 11/07/16 11/08/16 11:59 23:59 11:59 Weight 113.398 kg HEENM: atraumatic; sclera/conjunctiva: non-icteric/clear; hearing: unable to assess; dentition: poor; oropharynx: clear, mucosa moist Neck: soft tissue: non-tender; thyroid: normal Pulmonary: clear to auscultation bilaterally, good to fair aeration, no accessory muscle use CV: RR/RR, normal S1S2, no carotid bruit, no jugular venous distention, 2+ B DP/ PT, trace BLE edema Abdominal: soft, non-distended, non-tender, no rebound/guarding/rigidity, normoactive bowel sounds, no hepatosplenomegaly or masses, no costovertebral angle tenderness Musculoskeletal: general: grossly intact; gait: unable to assess 2nd GCS 3 Integumental: normal appearance and texture of exposed skin Neurological cranial nerves III/IV/: symmetric light reflex, loss of occulocephalic reflex/, pupils ~2mm/ minimally reactive V: weak but intact/symmetric corneal reflex VII: intact facial symmetry VIII: hearing unable to assess IX/X: intact gag reflex motor: unknown handedness unable to assess coordination unable to assess sensory unable to assess DTRs biceps: triceps: brachioradialis: patellar: Achilles: Babinski: Psychiatric orientation: GCS 3, mild grimace to noxious stimuli affect: obtunded mood: not applicable eye contact: absent content: absent memory: unable to assess responses: grimaces to noxious stimuli insight: absent Testing: Lab Results 11/08/16 11/08/16 11/08/16 Range/Units 02:40 02:40 02:40 WBC 10.8 (3.5-10.8) 10^3/ul RBC 5.40 (4.0-5.4) 10^6/ul Hgb 16.7 H (12.0-16.0) g/dl Hct 51 H (35-47) % MCV 94 (80-97) fL MCH 31 (27-31) pg MCHC 33 (31-36) g/dl RDW 16 H (10.5-15) % Plt Count 197 (150-450) 10^3/ul MPV 8 (7.4-10.4) um3 Neut % (Auto) 88.4 H (38-83) % Lymph % (Auto) 4.9 L (25-47) % [place] % (Auto) 5.7 (1-9) % Eos % (Auto) 0.4 (0-6) % Baso % (Auto) 0.6 (0-2) % Absolute Neuts (auto) 9.6 H (1.5-7.7) 10^3/ul Absolute Lymphs (auto) 0.5 L (1.0-4.8) 10^3/ul Absolute Monos (auto) 0.6 (0-0.8) 10^3/ul Absolute Eos (auto) 0 (0-0.6) 10^3/ul Absolute Basos (auto) 0.1 (0-0.2) 10^3/ul Absolute Nucleated RBC 0.01 10^3/ul Nucleated RBC % 0.1 INR (Anticoag Therapy) 0.96 (0.89-1.11) APTT 29.9 (26.0-36.3) seconds Sodium Pending Potassium Pending Chloride Pending Carbon Dioxide Pending Anion Gap Pending BUN Pending Creatinine Pending Est GFR ( Amer) Pending Est GFR (Non-Af Amer) Pending BUN/Creatinine Ratio Pending Glucose Pending Lactic Acid (0.5-2.0) mmol/L Calcium Pending Magnesium Pending Total Bilirubin Pending AST Pending ALT Pending Alkaline Phosphatase Pending Total Creatine Kinase Pending CK-MB (CK-2) Pending Troponin I Pending C-Reactive Protein Pending Total Protein Pending Albumin Pending Globulin Pending Albumin/Globulin Ratio Pending Lipase Pending TSH Pending Salicylates < 2.50 (<30) mg/dL Acetaminophen < 15 mcg/mL Serum Alcohol < 10 (<10) mg/dL 11/08/16 Range/Units 02:40 WBC (3.5-10.8) 10^3/ul RBC (4.0-5.4) 10^6/ul Hgb (12.0-16.0) g/dl Hct (35-47) % MCV (80-97) fL MCH (27-31) pg MCHC (31-36) g/dl RDW (10.5-15) % Plt Count (150-450) 10^3/ul MPV (7.4-10.4) um3 Neut % (Auto) (38-83) % Lymph % (Auto) (25-47) % [place] % (Auto) (1-9) % Eos % (Auto) (0-6) % Baso % (Auto) (0-2) % Absolute Neuts (auto) (1.5-7.7) 10^3/ul Absolute Lymphs (auto) (1.0-4.8) 10^3/ul Absolute Monos (auto) (0-0.8) 10^3/ul Absolute Eos (auto) (0-0.6) 10^3/ul Absolute Basos (auto) (0-0.2) 10^3/ul Absolute Nucleated RBC 10^3/ul Nucleated RBC % INR (Anticoag Therapy) (0.89-1.11) APTT (26.0-36.3) seconds Sodium Potassium Chloride Carbon Dioxide Anion Gap BUN Creatinine Est GFR ( Amer) Est GFR (Non-Af Amer) BUN/Creatinine Ratio Glucose Lactic Acid 1.6 (0.5-2.0) mmol/L Calcium Magnesium Total Bilirubin AST ALT Alkaline Phosphatase Total Creatine Kinase CK-MB (CK-2) Troponin I C-Reactive Protein Total Protein Albumin Globulin Albumin/Globulin Ratio Lipase TSH Salicylates (<30) mg/dL Acetaminophen mcg/mL Serum Alcohol (<10) mg/dL ECG, personally reviewed: sinus tachycardia rate 106, no ischemis, poor R-wave progression, Q-waves in II/III/AVF CT brain WO, personally reviewed: Impression: High attenuation intra-axial process in the right frontal lobe suspicious for a hemorrhagic neoplasm. Furter evaluation of this process is indicated. CT C-spine WO, personally reviewed: Impression: No fracture or listhesis is seen. Degenerative changes noted. Impression: 66F HX lung CA, CAD, COPD, DM2, R cortical CVA presents with GCS 3 and finding of R frontal hemorrhagic lesion suspicious for neoplastic process despite a negative MRI brain 1 month ago DIAGNOSIS & PLAN Primary R frontal ICH ? mass : HX lung CA : Nilda Espinoza MD neurosurgery consulted by Abilio Carr MD ED; will follow : 10mg dexamethasone IV now & 6mg IV Q6H : levetiracetam 750mg IV Q12H : maintain systolic pressure <140 : MRI brain in AM : EEG in AM : seizure precautions : strict NPO : avoid sedating medications : supplemental oxygen : PT/OT/ST evaluations, when able : supportive care elevated troponin : HX CAD : suspect demand ischemia : not a candidate for aspirin/heparin 2nd acute intracranial hemorrhage : telemetry : supplemental oxygen : trend : consider cardiology consult in the AM rhabdomyolysis, currently mild : IVFs : trend total CK & renal function Secondary lung CA : ? metastatic to brain based on CT findings : MRI brain in AM HX R cortical CVA : no acute issues COPD : albuterol nebs PRN : mometasone/formoterol : tiotropium : incentive spirometry once able HTN : continue losartan & propranolol once reconciled : hold HCTZ : hydralazine IV PRN systolic >135 HLD : continue rosuvastatin once reconciled GERD : continue pantoprazole once reconciled depression chronic pain syndrome once reconciled Admission Rational: inpatient for ICU management of intra-cranial hemorrhage ? 2nd metastatic disease ? associated with new onset seizures; inappropriate for outpatient setting DVTp: SCDs, no anticoagulation in setting of intra-cranial hemorrhage Code Status: full HCP: son, Adan
[2016-11-08] MEDS: NS 0.9% 1000 ML* 1,000 ML IV SCH ×3 (03:53→22:13)
[2016-11-08] MEDS: hydrALAZINE IV* 20 MG/ML VIAL IV PRN (04:02)
[2016-11-08 05:17] LABS: Urine Bilirubin Negative (Negative); Urine Glucose Negative (Negative); Urine Nitrite Negative (Negative)
[2016-11-08 05:25] LABS: Benzodiazepine Urine Screen None Detected (None Detect)
[2016-11-08 07:06] LABS: Troponin I 0.3 ng/mL (<0.04)
--- NOTE | 2016-11-08 07:52 | RAD ---
HISTORY: Altered mental status COMPARISONS: None TECHNIQUE: Multiple contiguous axial CT scans were obtained of the cervical spine without intravenous contrast, with coronal and sagittal multiplanar reformations. FINDINGS: BRAIN: The visualized brain is unremarkable CENTRAL CANAL: Evaluation of the central canal is limited on CT technique; however, there is no obvious canalicular mass or epidural hemorrhage. ALIGNMENT: There is straightening with serosal the normal cervical lordosis. VERTEBRAL BODIES: There is diffuse osteopenia. There is extensive, multilevel, bridging anterolateral marginal osteophyte formation. There is no displaced fracture or dislocation. JOINTS: There is diffuse uncovertebral and facet osteoarthritis. There is osteoarthritis of the atlantoaxial joint MUSCULATURE: Unremarkable INTERVERTEBRAL DISCS: There is diffuse loss of intervertebral disc height. AXIAL IMAGES: C2-C3: There is seen across the facet joints bilaterally. There is no significant osseous neural foraminal area or central canal stenosis. C3-C4: There is bilateral uncovertebral and facet hypertrophy. There is severe bilateral neural foraminal narrowing. There is mild narrowing of the central canal. C4-C5: There is bilateral uncovertebral and facet hypertrophy. There is severe bilateral neural foraminal narrowing. There is moderate narrowing of central canal. C5-C6: There is bilateral uncovertebral and facet hypertrophy, with a broad-based disc osteophyte complex. There is severe bilateral neural foraminal narrowing. There is severe narrowing of the central canal C6-C7: There is bilateral uncovertebral and facet hypertrophy. There is moderate bilateral neural foraminal narrowing. There is moderate narrowing of the central canal. C7-T1: There is bilateral uncovertebral facet hypertrophy. There is moderate left and mild right neural foraminal narrowing. There is no osseous central canal stenosis. SOFT TISSUES: The visualized soft tissues of the neck are unremarkable. The prevertebral fat stripe is preserved. OTHER: None. IMPRESSION: 1. OSTEOPENIA. 2. DEGENERATIVE DISC DISEASE AND OSTEOARTHRITIS. 3. THERE IS MULTILEVEL NEURAL FORAMINAL NARROWING AND NARROWING OF THE CENTRAL CANAL DESCRIBED ABOVE 4. NO ACUTE OSSEOUS INJURY TO THE CERVICAL SPINE
--- NOTE | 2016-11-08 07:53 | ED ---
Guillermo Hart Rebecca, scribed for Norman Carr MD on 11/08/16 at 0041 . Altered Mental Status - HPI Summary HPI Summary: Pt is a 66 y/o F BIBA who comes to ED p/w AMS characterized as unresponsiveness. Per nurse, she uses a walker at home and has fallen quite often in the past few weeks. The pt was found by her son at 0000 sitting on the toilet, unresponsive. Upon EMS arrival, pt was responding to painful stimuli. Pt had a Fentanyl patch (100 mcg) on the LUE that was removed in the ED. Level 5 caveat due to AMS characterized as unresponsiveness. - History Of Current Complaint Chief Complaint: EDAltMentalStatus Stated Complaint: ALTERED MENTAL STATUS Time Seen by Provider: 11/08/16 00:33 Hx Obtained From: EMS, Medical Records Hx From Patient Unobtainable Due To: Altered Mental Status Hx Last Menstrual Period: unknown Onset/Duration: Still Present Character: Responsiveness - Allergies/Home Medications Allergies/Adverse Reactions: Allergies Allergy/AdvReac Type Severity Reaction Status Date / Time Adhesive Tape Allergy Intermediate Blisters Verified 11/04/16 13:45 Codeine Allergy Intermediate See Comment Verified 11/04/16 13:45 PMH/Surg Hx/FS Hx/Imm Hx Endocrine/Hematology History: Denies: Hx Diabetes Cardiovascular History: Reports: Hx Coronary Artery Disease, Hx Hypercholesterolemia, Hx Hypertension, Hx Rheumatic Fever, Other Cardiovascular Problems/Disorders - DR. MELÉNDEZ FOLLOWS Denies: Hx Congestive Heart Failure, Hx Pacemaker/ICD Respiratory History: Reports: Hx Asthma, Hx Chronic Obstructive Pulmonary Disease (COPD), Other Respiratory Problems/Disorders - LUNG CA GI History: Reports: Hx Gall Bladder Disease, Hx Gastroesophageal Reflux Disease - ON MEDICATION FOR History: Reports: Hx Kidney Infection Denies: Hx Renal Disease Musculoskeletal History: Reports: Hx Arthritis - BACK, LEFT SHOULDER, KNEES, RIGHT SHOULDER, Hx Back Problems, Hx Bursitis, Hx Tendonitis, Other Musculoskeletal History - Chronic low back pain, SURGERY ON RIGHT LEG FEMUR AND ANKLE. LUMBAR FUSION Sensory History: Reports: Hx Contacts or Glasses Denies: Hx Hearing Aid Opthamlomology History: Reports: Hx Contacts or Glasses Neurological History: Reports: Hx Headaches - HISTORY OF, Hx Migraine - HISTORY OF, Other Neuro Impairments/Disorders - left foot/leg numbness for months Psychiatric History: Reports: Hx Depression Denies: Hx Panic Disorder - Cancer History Cancer Type, Location and Year: LUNG CA 2014 Hx Chemotherapy: No Hx Radiation Therapy: Yes - W/ DR ALVAREZ Hx Palliative Cancer Treatment: No - Surgical History Surgery Procedure, Year, and Place: Tonsillectomy;. Appendectomy A CHILD;. D&C x4. Right leg fracture x 4 [place] [place] RIGHT HIP. RIGHT LARGE CALCIUM DEPOSIT FORM FROM PIN PLACMENT REMOVED). Bunionectomy left foot. Ovarian Cystectomy[place] [place] Lumbar x2(1ST - FUSION; SECOND - SURG DUE TO MRSA). Cardiac Cath withStent Placement X4 STENTS ( [employer] - MR CONDITIONAL 5 FOR UP TO 3T -PER [employer] 11/26/15). LEFT BREAST BIOPSY WITH CLIP - BENIGN -TUMOR REMOVED AT AGE 5-BENIGN. Left knee Ar[place]roscopy[place] [place] Left Knee TKR. GALLBLADDER REMOVED;. Stent placement in Pancrease. 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 Denies: Hx Clostridium Difficile, Hx Hepatitis, Hx Human Immunodeficiency Virus (HIV), Hx Shingles, Hx Tuberculosis, Hx Known/Suspected VRE, Hx Known/ Suspected VRSA, History Other Infectious Disease, Traveled Outside the [place] in Last 30 Days - Family History Known Family History: Positive: Other - [place] - Social History Alcohol Use: None Substance Use Type: Reports: None Substance Use Comment - Amount & Last Used: fentanyl patch and hydromorphone Hx Tobacco Use: Yes - 08/2014 Smoking Status (MU): Current Some Day Smoker Type: Cigarettes Amount Used/How Often: 1-2 cigarettes/week Length of Time of Smoking/Using Tobacco: 40 + years Have You Smoked in the Last Year: Yes Review of Systems - ROS Summary Review of Systems Summary: Level 5 caveat due to AMS characterized as unresponsive. Neurological: Other - AMS - unresponsiveness All Other Systems Reviewed And Are Negative: No Physical Exam - Summary Physical Exam Summary: Eyes: Pupils are pinpoint, opens eyes to voice Neurological: Responds to pain, before she was responding to voice, verbalizes simple words GCS: 12 Level 5 caveat due to AMS characterized as unresponsiveness. Triage Information Reviewed: Yes Vital Signs On Initial Exam: Initial Vitals Temp Pulse Resp BP Pulse Ox 97.1 F 112 21 136/65 96 11/08/16 00:27 11/08/16 00:27 11/08/16 00:27 11/08/16 00:27 11/08/16 00:27 Vital Signs Reviewed: Yes Completion Of Physical Exam Limited Due To: Level 5 - Eugenia Coma Scale Best Eye Response: 3 - To Speech Best Motor Response: 5 - Purposeful Movement Best Verbal Response: 4 - Confused Diagnostics - Vital Signs Vital Signs Temp Pulse Resp BP Pulse Ox 11/08/16 00:27 97.1 F 112 21 136/65 96 - Laboratory Result Diagrams: 11/08/16 02:40 11/08/16 02:40 Lab Statement: Any lab studies that have been ordered have been reviewed, and results considered in the medical decision making process. - CT Brain CT CT Interpretation: Positive (See Comments) - High attenuation intra-axial process in the right frontal lobe suspicious for a hemorrhagic neoplasm. Further evaluation of this process is indicated. CT Interpretation Completed By: Radiologist C-Spine CT CT Interpretation: No Acute Changes CT Interpretation Completed By: Radiologist - EKG 0158 Cardiac Rate: Tachycardia - 106 bpm EKG Rhythm: Sinus Tachycardia ST Segment: Normal Ectopy: PACs Altered Mental Statu Course/Dx - Course Course Of Treatment: ADMIT HOSPITALIST CRITICAL. - Diagnoses Discharge Diagnoses: Altered mental state, Brain tumor, Brain bleed - Provider Notifications Discussed Care Of Patient With: Fito Quinones Time Discussed With Above Provider: 02:04 Instructed by Provider To: Other - Discussed the case. Discussed care of pt with Dr. Espinoza, neurosurgeon, at 0206 who suggested steroids, Keppra and BP medication. - Critical Care Time Critical Care Time: 30-74 min Discharge - Discharge Plan Condition: Critical Disposition: ADMITTED TO [facility] documentation as recorded by the Guillermo stroud Rebecca accurately reflects the service I personally performed and the decisions made by me, Norman Carr MD.
--- NOTE | 2016-11-08 07:57 | RAD ---
HISTORY: Altered mental status COMPARISONS: October 03, 2016 TECHNIQUE: Multiple contiguous axial CT scans were obtained of the head without intravenous contrast. FINDINGS: HEMORRHAGE/INFARCT: There has been interval development of high attenuation material within the right frontal lobe consistent with a parenchymal hematoma measuring 2.1 x 2.6 cm in size. There is a thin rim of vasogenic edema. Elsewhere, there is no hemorrhage or acute infarct. MASSES/SHIFT: There is no shift. There is a right frontal parenchymal,. There is no other parenchymal mass. EXTRA-AXIAL SPACES: There are no extra-axial fluid collections. SULCI AND VENTRICLES: The sulci and ventricles are normal in size and position for the patient's stated age. CEREBRUM: As noted above, there is a 2.6 and a right frontal intraparenchymal hematoma. There is a small amount of associated vasogenic edema. There is multifocal hypoattenuation of the periventricular and subcortical white matter, with right occipital and right basal ganglia encephalomalacia consistent with remote infarct. BRAINSTEM: There are no focal parenchymal abnormalities. CEREBELLUM: There are no focal parenchymal abnormalities. VESSELS: The vessels are grossly normal. PARANASAL SINUSES: The paranasal sinuses are clear. ORBITS: The orbits are unremarkable. BONES AND SOFT TISSUE: No bone or soft tissue abnormalities are noted. OTHER: None IMPRESSION: 1. 2.6 CM RIGHT FRONTAL INTRAPARENCHYMAL HEMATOMA. THERE IS NO SHIFT. A PRELIMINARY REPORT WAS CREATED BY DR. MATTHEWS AT APPROXIMATELY 1:25 AM ON NOVEMBER 08, 2016. 2. CHRONIC SMALL VESSEL SKIN CHANGES WITH EVIDENCE OF MULTIPLE REMOTE INFARCTS 3. THE DIFFERENTIAL INCLUDES HEMORRHAGIC CONVERSION OF INFARCT. HYPERTENSIVE HEMORRHAGES WITHIN THE DIFFERENTIAL, THOUGH THE LOCATION IS SOMEWHAT ATYPICAL. HEMORRHAGIC NEOPLASM IS ALSO WITHIN THE DIFFERENTIAL, THOUGH THERE IS NO CORRESPONDING MRI ABNORMALITY ON OCTOBER 05, 2016. AMYLOID ANGIOPATHY IS IS WITHIN THE DIFFERENTIAL, THOUGH THIS IS CONSIDERED LESS LIKELY IN THIS DEMOGRAPHIC. RECOMMEND CONSIDERATION OF POSTCONTRAST MRI OF THE BRAIN AFTER RESOLUTION OF THE HEMATOMA
[2016-11-08] MEDS: Tiotropium CAP.INH* CAP.INH/18 MCG INH SCH (08:15)
[2016-11-08] MEDS: Mometasone/Formoter 200/5 MDI INH SCH ×2 (08:16→19:38)
[2016-11-08] MEDS: Dexamethasone IV* 4 MG/ML 1 ML (4 MG) IVPB SCH ×3 (08:32→20:25)
[2016-11-08] MEDS: Famotidine IV* 10 MG/ML 2 ML (20 mg) IV SLOW PU SCH ×2 (08:32→20:24)
[2016-11-08] MEDS ORDERED: Spiriva Inhaler DEVICE* 1 EACH DEVICE ONE (09:00)
[2016-11-08] MEDS ORDERED: Dexamethasone IV* 6 MG in NS 0.9% 50 ML* 50 ML IVPB SCH (09:00)
[2016-11-08] MEDS ORDERED: Gadoteridol* (CONTRAST) 279.3 MG/ML 10 ML IV SCH (11:01)
--- NOTE | 2016-11-08 12:22 | PN ---
Progress Note - Progress Note Date of Service: 11/08/16 SOAP: Subjective: []Easily arousable No complaints of headache Has history of prior lung carcinoma MRI pending Objective: []Motor intact Speech somewhat difficult to understand Assessment: []Right frontal lesion Plan: []Patient needs MRI today Awaiting oncology evaluation
--- NOTE | 2016-11-08 12:40 | RAD ---
HISTORY: Renal lesion, tumor versus abscess COMPARISONS: Head CT dated November 08, 2016, MRI dated October 05, 2016 TECHNIQUE: The following sequences were obtained of the head: Sagittal T1-weighted images, axial T2-weighted images, axial FLAIR images, axial susceptibility weighted images, axial T1-weighted images. Additionally, axial diffusion-weighted images were obtained with calculated apparent diffusion coefficients. Additionally, sagittal, coronal, and axial T1-weighted images were obtained after contrast enhancement with a gadolinium-based intravenous contrast agent. FINDINGS: HEMORRHAGE/INFARCT: Again noted is a right frontal and parietal hemorrhage with associated vasogenic edema centered in the right middle and inferior frontal gyri measuring approximately 2.7 cm in size. Additionally, there are scattered small foci of restricted diffusion within the right putamen, left parietal lobe, and right parietal lobe MASSES/SHIFT: As noted above, there is right frontal parenchymal hemorrhage. Elsewhere, there is no mass or shift. EXTRA-AXIAL SPACES/MENINGES: There are no extra-axial fluid collections. SULCI AND VENTRICLES: The sulci and ventricles are normal in size and position for the patient's stated age. CEREBRUM: As noted above, there is right frontal intraparenchymal hemorrhage with associated vasogenic edema. There is no appreciable abnormal enhancement. As noted above, there are small foci of restricted diffusion in the cerebral hemispheres bilaterally. There is minimal associated enhancement.. There is right frontal encephalomalacia consistent with remote infarct. There is right occipital and cephalization consistent with remote infarct. BRAINSTEM: There are no focal parenchymal abnormalities. CEREBELLUM: There are no focal parenchymal abnormalities. The cerebellar tonsils are normal in size and position. SELLA: The sella is normal. PINEAL: The pineal region is clear. CP ANGLE/TEMPORAL BONES: The labyrinthine structures are grossly normal. VESSELS: Normal flow-voids are noted within the visualized vertebral vasculature. DIFFUSION ABNORMALITIES: There are no diffusion abnormalities. PARANASAL SINUSES/MASTOIDS: The paranasal sinuses are clear. ORBITS: The orbits are unremarkable. BONES AND SOFT TISSUE: No bone or soft tissue abnormalities are noted. OTHER: None IMPRESSION: 1. AGAIN NOTED IS RIGHT FRONTAL AND FRONTAL HEMORRHAGE. THERE IS NO SHIFT. THERE IS NO APPRECIABLE ASSOCIATED ABNORMAL ENHANCEMENT TO SUGGEST UNDERLYING MASS, THOUGH A SMALL MASSES MAY BE OBSCURED BY HEMATOMA. 2. ADDITIONALLY, THERE ARE SCATTERED SMALL FOCI OF RESTRICTED DIFFUSION WITHIN THE CEREBRAL HEMISPHERES BILATERALLY, WITH MINIMAL ASSOCIATED ENHANCEMENT. THE MINIMAL ASSOCIATED ENHANCEMENT SUGGESTS MULTIPLE SMALL, SUBACUTE INFARCTS IN MULTIPLE VASCULAR TERRITORIES WHICH WOULD SUGGEST EMBOLIC DISEASE. 3. AGAIN NOTED IS RIGHT FRONTAL AND RIGHT OCCIPITAL AND SEPTAL MALACIA CONSISTENT WITH REMOTE INFARCT. 4. GIVEN THE PRESENCE OF FINDINGS SUGGESTIVE OF MULTIFOCAL SUBACUTE INFARCT, IN THE ABSENCE OF ENHANCING MASSES, THE RIGHT FRONTAL HEMORRHAGE IS FELT TO LIKELY REPRESENT HEMORRHAGIC CONVERSION OF INFARCT. GIVEN THE HISTORY OF , UNDERLYING HEMORRHAGIC METASTATIC DISEASE IS NOT EXCLUDED. RECOMMEND ATTENTION ON FOLLOW-UP IMAGING TO CONFIRM RESOLUTION OF ENHANCEMENT OF THE SUBACUTE INFARCTS AND EXCLUDE THE PRESENCE OF UNDERLYING ENHANCING MASS IN THE REGION OF HEMORRHAGE
[2016-11-09] MEDS ORDERED: oxyCODONE TAB* 5 MG TAB PO PRN (00:07)
[2016-11-09] MEDS: Morphine INJ* 2 MG/ML 1 ML SYRINGE IV PRN ×5 (00:38→21:46)
[2016-11-09] MEDS: Dexamethasone IV* 4 MG/ML 1 ML (4 MG) IVPB SCH (03:49)
[2016-11-09] MEDS: NS 0.9% 1000 ML* 1,000 ML IV SCH ×2 (04:38→12:02)
[2016-11-09 06:09] LABS: Creatine Kinase 217 U/L (10-223)
[2016-11-09] MEDS: Mometasone/Formoter 200/5 MDI INH SCH ×2 (07:32→19:12)
[2016-11-09] MEDS: Tiotropium CAP.INH* CAP.INH/18 MCG INH SCH (07:32)
--- NOTE | 2016-11-09 08:05 | PN ---
Subjective Date of Service: 11/09/16 Interval History: Patient seen and examined at bedside. Denies fever, chills, lightheadedness, dizziness, headache, shortness of breath, chest discomfort, N/V/D, N/T. Pt states that she has a tremor at baseline when she is trying to use her hands. The patient had previously been on 175 mcg of Fentanyl patches and at her last admission was encouraged to decrease her narcotic use. The pain clinic decreased her Fentanyl down to 100 mcg patches. Cardiac Monitoring: Sinus rhythm, rate 80-90's. Family History: Unchanged from Admission Social History: Unchanged from Admission Past Medical History: Unchanged from Admission Objective Active Medications: Acetaminophen (Tylenol Supp*) 650 mg ME Q6H PRN Reason: FEVER/PAIN Albuterol (Ventolin 2.5 Mg/3 Ml Neb.Lulú*) 2.5 mg INH Q2H PRN Reason: SOB/ WHEEZING Dexamethasone Sodium Phosphate (Decadron Iv*) 6 mg IVPB Q6H MARIZOL Famotidine (Pepcid Iv*) 20 mg IV SLOW PU BID MARIZOL Gadoteridol (Prohance* (Contrast)) 14 ml IV ONCE [facility] Stop: 11/10/16 11:00 Hydralazine HCl (Apresoline Iv*) 10 mg IV Q4H PRN Reason: Systolic >160 Sodium Chloride (Ns 0.9% 1000 Ml*) 1,000 mls @ 125 mls/hr IV PER RATE MARIZOL Levetiracetam 1,000 mg/ Sodium (Chloride) 110 mls @ 440 mls/hr IVPB Q12H MARIZOL Mometasone Furoate/Formoterol Fumar (Dulera 200/5 Mdi*) 2 puff INH BID MARIZOL Morphine Sulfate (Morphine Inj (Syringe)*) 2 mg IV Q4H PRN Reason: PAIN - MILD Naloxone HCl (Narcan Nasal [place]) 2 mg NASAL .REPEAT Q2M to Q3M PRN Reason: CONFUSION Ondansetron HCl (Zofran Inj*) 4 mg IV Q6H PRN Reason: NAUSEA Tiotropium [place] (Spiriva Cap.Inh*) 1 cap INH DAILY [facility] Vital Signs 11/08/16 11/08/16 11/08/16 08:00 08:12 08:59 Temperature 98.9 F Pulse Rate 108 105 Respiratory 23 22 Rate Blood Pressure 120/79 (mmHg) O2 Sat by Pulse 94 95 94 Oximetry 11/08/16 11/08/16 11/08/16 09:00 09:30 10:00 Temperature 98.9 F 98.9 F 98.8 F Pulse Rate 103 105 101 Respiratory 23 21 23 Rate Blood Pressure 125/83 127/92 121/82 (mmHg) O2 Sat by Pulse 95 95 94 Oximetry 11/08/16 11/08/16 11/08/16 10:30 11:00 11:03 Temperature 98.9 F 99.0 F 99.0 F Pulse Rate 99 107 110 Respiratory 22 20 21 Rate Blood Pressure 124/86 140/89 135/96 (mmHg) O2 Sat by Pulse 94 92 90 Oximetry 11/08/16 11/08/16 11/08/16 12:00 12:41 12:42 Temperature Pulse Rate Respiratory 21 18 Rate Blood Pressure 139/92 (mmHg) O2 Sat by Pulse Oximetry 11/08/16 11/08/16 11/08/16 13:00 13:30 14:00 Temperature 98.7 F 98.7 F 98.6 F Pulse Rate 109 104 111 Respiratory 0 23 22 Rate Blood Pressure 129/69 138/72 143/88 (mmHg) O2 Sat by Pulse 95 96 94 Oximetry 11/08/16 11/08/16 11/08/16 14:30 14:58 15:00 Temperature 98.6 F 98.7 F Pulse Rate 109 105 Respiratory 26 24 27 Rate Blood Pressure 125/89 108/87 (mmHg) O2 Sat by Pulse 97 96 Oximetry 11/08/16 11/08/16 11/08/16 15:30 16:00 16:30 Temperature 98.8 F 98.6 F 98.6 F Pulse Rate 109 101 106 Respiratory 25 24 22 Rate Blood Pressure 132/92 130/90 142/104 (mmHg) O2 Sat by Pulse 93 95 94 Oximetry 11/08/16 11/08/16 11/08/16 17:00 17:30 17:59 Temperature 98.7 F 98.8 F Pulse Rate 104 106 Respiratory 23 26 24 Rate Blood Pressure 141/86 137/87 (mmHg) O2 Sat by Pulse 95 93 Oximetry 11/08/16 11/08/16 11/08/16 18:00 18:45 19:00 Temperature 99.0 F 99.4 F Pulse Rate 104 103 Respiratory 21 23 18 Rate Blood Pressure 143/82 130/80 (mmHg) O2 Sat by Pulse 93 93 Oximetry 11/08/16 11/08/16 11/08/16 19:41 19:42 20:00 Temperature 99.4 F Pulse Rate 107 107 105 Respiratory 20 20 25 Rate Blood Pressure 117/75 (mmHg) O2 Sat by Pulse 92 92 94 Oximetry 11/08/16 11/08/16 11/08/16 20:49 21:00 22:00 Temperature 99.4 F 99.1 F Pulse Rate 107 99 Respiratory 30 28 5 Rate Blood Pressure 121/82 131/99 (mmHg) O2 Sat by Pulse 93 92 Oximetry 11/08/16 11/08/16 11/08/16 22:28 22:29 23:00 Temperature 98.9 F 99.0 F Pulse Rate 99 92 Respiratory 10 20 5 Rate Blood Pressure 130/79 (mmHg) O2 Sat by Pulse 93 94 Oximetry 11/09/16 11/09/16 11/09/16 00:00 00:01 00:38 Temperature 98.5 F 98.5 F Pulse Rate 96 96 Respiratory 20 18 20 Rate Blood Pressure 106/88 (mmHg) O2 Sat by Pulse 91 91 Oximetry 11/09/16 11/09/16 11/09/16 01:00 02:00 03:00 Temperature 98.2 F 98.1 F 98.1 F Pulse Rate 90 89 85 Respiratory 0 0 0 Rate Blood Pressure 122/80 118/77 120/81 (mmHg) O2 Sat by Pulse 93 97 97 Oximetry 11/09/16 11/09/16 11/09/16 04:00 04:38 05:00 Temperature 98.0 F 97.9 F Pulse Rate 86 93 Respiratory 18 18 19 Rate Blood Pressure 129/82 131/74 (mmHg) O2 Sat by Pulse 95 92 Oximetry 11/09/16 11/09/16 11/09/16 06:00 07:35 07:36 Temperature 98.1 F Pulse Rate 86 90 Respiratory 20 17 Rate Blood Pressure 102/67 (mmHg) O2 Sat by Pulse 94 93 93 Oximetry Oxygen Devices in Use Now: None Appearance: NAD, laying in bed Eyes: No Scleral Icterus, - - EOMs intact Ears/Nose/Mouth/Throat: Mucous Membranes Moist Respiratory: Symmetrical Chest Expansion and Respiratory Effort, Clear to Auscultation Cardiovascular: NL Sounds; No Murmurs; No JVD, RRR Abdominal: NL Sounds; No Tenderness; No Distention Extremities: - - trace to 1+ bilateral LE edema Skin: No Rash or Ulcers Neurological: Alert and Oriented x 3, - - Slight pronator drift on the right, hand backhaul driver equal, smile with slight down turning on the left Lines/Tubes/Other Access: Clean, Dry and Intact Peripheral IV - site benign Nutrition: Taking PO's Result Diagrams: 11/08/16 02:40 11/09/16 10:55 Microbiology and Other Data: Microbiology 11/08/16 03:50 Nasal Screen MRSA (PCR)([facility]) - Final Nasal Mrsa Negative Assess/Plan/Problems-Billing Assessment: Ms. Mccullough is 66 yo female with PMH significant for who presented to the emergency room for - Patient Problems (1) Hemorrhagic cerebrovascular accident (CVA) Code(s): I61.9 - NONTRAUMATIC INTRACEREBRAL HEMORRHAGE, UNSPECIFIED SNOMED Code(s): 478827619 Comment: - MRI shows no signs of mets to the brain - Neurosurgery consult, input appreciated - EEG and neurology consult pending - Will stop dexamethasone - PT/OT and speech Therapy evals - Continue Keppra until seen by Neurology - Will get an echo (2) Elevated troponin Code(s): R74.8 - ABNORMAL LEVELS OF OTHER SERUM ENZYMES SNOMED Code(s): 027390562 Comment: - Denies chest pain - No acute signs of ischemia on EKG - Suspect related to demand ischemia - No ASA/heparin in setting of intracranial hemorrhage (3) Rhabdomyolysis Code(s): M62.82 - RHABDOMYOLYSIS SNOMED Code(s): 733555332 Comment: - Resolved after IVFs (4) Electrolyte abnormality Code(s): E87.8 - OTH DISORDERS OF ELECTROLYTE AND FLUID BALANCE, NEC SNOMED Code(s): 501888245 Comment: - Hypomagnesia. Will give replacement today and recheck in the morning (5) History of CVA (cerebrovascular accident) Code(s): Z86.73 - PRSNL HX OF TIA (TIA), AND CEREB INFRC W/O RESID DEFICITS SNOMED Code(s): 273687654 Comment: - History of right cortical CVA (6) Benign essential tremor Code(s): G25.0 - ESSENTIAL TREMOR SNOMED Code(s): 450548754 Comment: - Dx noted. mod to severe tremor UE's. (7) Hypertension Code(s): I10 - ESSENTIAL (PRIMARY) HYPERTENSION SNOMED Code(s): 45870902 Comment: - Normotensive - Suspect BP readings with elevated DBP are inaccurate - Will resume propanolol - Continue to hold Losartan for now - Hydralazine prn SBP >160 (8) CAD (coronary artery disease) Code(s): I25.10 - ATHSCL HEART DISEASE OF [place] CORONARY ARTERY W/O ANG PCTRS SNOMED Code(s): 07300971 Comment: - Asymptomatic. - Hold ASA in setting of intracranial hemorrhage (9) COPD (chronic obstructive pulmonary disease) Code(s): J44.9 - CHRONIC OBSTRUCTIVE PULMONARY DISEASE, UNSPECIFIED SNOMED Code(s): 40192250 Comment: - No signs of exacerbation at this time. - Continue dulera and spiriva. (10) Chronic pain Code(s): G89.29 - OTHER CHRONIC PAIN SNOMED Code(s): 36796235 Comment: - Follows with pain clinic outpatient - No complaints of pain at this time - Hold home medications (11) GERD (gastroesophageal reflux disease) Code(s): K21.9 - GASTRO-ESOPHAGEAL REFLUX DISEASE WITHOUT ESOPHAGITIS SNOMED Code(s): 924491336 Comment: - Resume pantoprazole. (12) HLD (hyperlipidemia) Code(s): E78.5 - HYPERLIPIDEMIA, UNSPECIFIED SNOMED Code(s): 65019948 Comment: - Resume statin - Will check fasting lipids in the morning (13) Lung cancer Code(s): C34.90 - MALIGNANT NEOPLASM OF UNSP PART OF UNSP BRONCHUS OR LUNG SNOMED Code(s): 375333469 Comment: - No signs of brain mets - Follow with Oncology outpatient as needed (14) DVT prophylaxis Code(s): IMM6026 - SNOMED Code(s): 655020876 Comment: - SCD's - No chemical dvt prophylaxis in setting of intracranial hemorrhage (15) Full code status Code(s): Z78.9 - OTHER SPECIFIED HEALTH STATUS SNOMED Code(s): 620439275 Status and Disposition: Inpatient.
[2016-11-09] MEDS: Famotidine IV* 10 MG/ML 2 ML (20 mg) IV SLOW PU SCH ×2 (08:42→21:20)
[2016-11-09 10:38] LABS: BUN/Creatinine Ratio 20.8 (8-20); Blood Urea Nitrogen 11 mg/dL (6-24); CO2 Carbon Dioxide 25 mmol/L (22-32); Calcium 7.7 mg/dL (8.6-10.3); Chloride 106 mmol/L (101-111); EGFR African American 147.5 (>60); EGFR Non-African American 114.7 (>60); Glucose 88 mg/dL (70-100); Sodium 138 mmol/L (133-145)
[2016-11-09 10:44] LABS: Anion Gap 7 mmol/L (2-11)
[2016-11-09 11:22] LABS: BUN/Creatinine Ratio 20.8 (8-20); Calcium 7.8 mg/dL (8.6-10.3); EGFR African American 147.5 (>60); EGFR Non-African American 114.7 (>60)
[2016-11-09 11:26] LABS: Magnesium 1.6 mg/dL (1.9-2.7); Potassium 4.7 mmol/L (3.5-5.0)
--- NOTE | 2016-11-09 11:36 | PN ---
Progress Note - Progress Note Date of Service: 11/09/16 SOAP: Subjective: []Follow up of right frontal hematoma More alert this am Denies headache MRI completed yesterday Objective: []Neuro intact MRI consistent with likely hemmorhagic infarct No enhancement to suggest metastatic disease Assessment: []Likely vascular event Plan: []Will sign off Suggest Neurology evaluation
[2016-11-09] MEDS: Propranolol TAB* 80 MG PO SCH (21:16)
[2016-11-09] MEDS: carBAMazepine TAB(*) 200 MG PO SCH (21:17)
[2016-11-10] MEDS: Morphine INJ* 2 MG/ML 1 ML SYRINGE IV PRN ×4 (01:46→18:29)
[2016-11-10 06:27] LABS: Hematocrit 39 % (35-47); Hemoglobin 12.6 g/dl (12.0-16.0); Mean Corpuscular HGB Conc 32 g/dl (31-36); Mean Corpuscular Hemoglobin 31 pg (27-31); Mean Corpuscular Volume 96 fL (80-97); Mean Platelet Volume 8 um3 (7.4-10.4); Red Blood Count 4.06 10^6/ul (4.0-5.4); Red Cell Distribution Width 16 % (10.5-15); White Blood Count 6.3 10^3/ul (3.5-10.8)
[2016-11-10 06:38] LABS: BUN/Creatinine Ratio 14.5 (8-20); Calcium 7.8 mg/dL (8.6-10.3); EGFR African American 141.4 (>60); EGFR Non-African American 109.9 (>60); Magnesium 1.8 mg/dL (1.9-2.7); Potassium 3.8 mmol/L (3.5-5.0)
[2016-11-10] MEDS ORDERED: Magnesium Sulfate 2 GM IV* 2 GM/50 ML BAG IVPB ONE (07:19)
[2016-11-10] MEDS: Famotidine IV* 10 MG/ML 2 ML (20 mg) IV SLOW PU SCH (09:26)
[2016-11-10] MEDS: carBAMazepine TAB(*) 200 MG PO SCH ×2 (09:26→21:45)
[2016-11-10] MEDS: Atorvastatin* 10 MG TAB PO SCH (09:26)
[2016-11-10] MEDS: Propranolol TAB* 80 MG PO SCH ×2 (09:26→21:45)
--- NOTE | 2016-11-10 10:17 | EEG ---
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 MEDICATIONS: Include: 1. Decadron. 2. Pepcid. 3. Keppra. 4. Apresoline. 5. Morphine. 6. Narcan. REPORT: With the patient awake, background cerebral activity consists of moderate amplitude, posterior dominant 8 to 9 Hz rhythm, there is slowing into the theta range in the right frontal head region. No epileptiform potentials are noted. CLINICAL IMPRESSION: This awake EEG is abnormal because of slowing on the right frontal head region, suggestive of an underlying structural region. No clear seizure potentials are noted. [id number]/[facility] #: [id number] MTDD
--- NOTE | 2016-11-10 12:05 | ECHO ---
Patient: ZIA CASTRO [facility] Rec#: [id number] : 1950 Date: 11/10/2016 Age: 66y Height: 162.56 cm / 64.0 in Weight: 71.21 kg / 156.9 lbs Sex: F BSA: 1.76 Room#: ICU 7 Admit Date#: 11/08/2016 Type: Inpatient Referring: Sally Rocha NP Reading: Augie Bolivar MD [employer] Architect: Neredia Almeida RDCS,RDMS CC: Augustin Jeong MD Transthoracic Echocardiogram Indication: CVA BP: 89/67 HR: 80 Rhythm: NSR with PVCs Findings History: CAD, PCI, COPD, HTN, HLD, lung cancer Technical Comments: The study quality is fair. Completed 0825 Left Ventricle: The left ventricular chamber size is normal. Mild to moderate concentric left ventricular hypertrophy is observed. There is global hypokinesis of the left ventricle with minor regional variation. There is moderately decreased left ventricular systolic function. The estimated ejection fraction is 40-45%. Abnormal left ventricular diastolic filling is observed, consistent with impaired relaxation. Left Atrium: The left atrium is slightly dilated. Right Ventricle: The right ventricle is mildly dilated. The right ventricular global systolic function is mildly reduced. Right Atrium: There were late bubbles seen in the left atrium.Possible lung AVM A patent foramen ovale is not demonstrated with color Doppler and agitated contrast. Aortic Valve: The aortic valve is trileaflet. Systolic excursion of the aortic valve is normal. There is no evidence of aortic regurgitation. There is no evidence of aortic stenosis. Mitral Valve: The mitral valve leaflets appear normal. There is a trace of mitral regurgitation. There is no evidence of mitral stenosis. Tricuspid Valve: The tricuspid valve leaflets are normal. There is mild tricuspid regurgitation. The right ventricular systolic pressure is estimated at 44 mmHg. There is evidence of mild to moderate pulmonary hypertension. Pulmonic Valve: The pulmonic valve appears normal. There is a trace pulmonic regurgitation. Pericardium: There is no significant pericardial effusion. Aorta: The aortic root appears normal. The aortic arch is not well visualized. Pulmonary Artery: The main pulmonary artery is not well visualized. Venous: The inferior vena cava is not visualized. Contrast: Intravenous agitated saline contrast was used to assess intracardiac shunting. Conclusions Mild to moderate concentric left ventricular hypertrophy is observed. There is moderately decreased left ventricular systolic function. There is global hypokinesis of the left ventricle with minor regional variation. The estimated ejection fraction is 40-45%. The right ventricular global systolic function is mildly reduced. There is no evidence of aortic stenosis. There is a trace of mitral regurgitation. There is mild tricuspid regurgitation. The right ventricular systolic pressure is estimated at 44 mmHg. There is no significant pericardial effusion. A patent foramen ovale is not demonstrated with color Doppler and agitated contrast. There were late bubbles seen in the left atrium.Possible lung AVM Compared to study of 08/02/14, the LV function is slightly lower Measurements Name Value Normal Range RVIDd (AP) 2D 3.2 cm (0.9 - 2.6) RVDdMajor (2D) 4.2 cm (2.2 - 4.4) RAd ISD 4CH 6.1 cm (3.4 - 4.9) RA (A4C)W 3.7 cm (2.9 - 4.6) IVSd (2D) 1.5 cm (0.6 - 1) LVPWd (2D) 1.3 cm (0.6 - 1) LVIDd (2D) 4.7 cm (3.6 - 5.4) LVIDs (2D) 3.8 cm - LV FS (2D) 20 % (25 - 45) Aortic Annulus 2 cm (1.4 - 2.6) Ao root diameter (2D) 2.9 cm (2.1 - 3.5) Ascending Ao 3.4 cm (2.1 - 3.4) LA dimension (AP) 2D 4.1 cm (2.3 - 3.8) LAd ISD 4CH 4.7 cm (2.9 - 5.3) LA ISD 4CH W 3.9 cm (2.5 - 4.5) Name Value Normal Range MV E-wave Vmax 0.5 m/sec - MV deceleration time 173 msec - MV A-wave Vmax 0.7 m/sec - MV E:A ratio 0.7 ratio - P. vein S-wave Vmax 0.6 m/sec - P. vein D-wave Vmax 0.5 m/sec - P. vein S:D Vmax ratio 1.3 ratio - P. vein A-wave duration 100 msec - LV septal e' Vmax 0.05 m/sec - LV E:e' septal ratio 10 ratio - Name Value Normal Range AV Vmax 1.5 m/sec - AV peak gradient 9 mmHg - LVOT Vmax 0.8 m/sec - LVOT peak gradient 2.6 mmHg - Name Value Normal Range TR Vmax 3 m/sec - TR peak gradient 36 mmHg - RAP 8 mmHg - RVSP 44 mmHg - Name Value Normal Range PV Vmax 0.7 m/sec - PV peak gradient 2 mmHg -
--- NOTE | 2016-11-10 14:00 | PN ---
Subjective Date of Service: 11/10/16 Interval History: Patient seen and examined at bedside. Pt states that she is feeling well. Denies fever, chills, shortness of breath, chest discomfort, N/V/D. Cardiac monitoring: Sinus rhythm, rate 60-70's. Family History: Unchanged from Admission Social History: Unchanged from Admission Past Medical History: Unchanged from Admission Objective Active Medications: Acetaminophen (Tylenol Supp*) 650 mg AR Q6H PRN Reason: FEVER/PAIN Albuterol (Ventolin 2.5 Mg/3 Ml Neb.Lulú*) 2.5 mg INH Q2H PRN Reason: SOB/ WHEEZING Atorvastatin Calcium (Lipitor*) 10 mg PO DAILY MARIZOL Reason: Protocol Carbamazepine (Tegretol Tab(*)) 200 mg PO QAM MARIZOL Carbamazepine (Tegretol Tab(*)) 400 mg PO BEDTIME MARIZOL Famotidine (Pepcid Iv*) 20 mg IV SLOW PU BID MARIZOL Hydralazine HCl (Apresoline Iv*) 10 mg IV Q4H PRN Reason: Systolic >160 Sodium Chloride (Ns 0.9% 1000 Ml*) 1,000 mls @ 125 mls/hr IV PER RATE MARIZOL Mometasone Furoate/Formoterol Fumar (Dulera 200/5 Mdi*) 2 puff INH BID MARIZOL Morphine Sulfate (Morphine Inj (Syringe)*) 2 mg IV Q4H PRN Reason: PAIN - MILD Ondansetron HCl (Zofran Inj*) 4 mg IV Q6H PRN Reason: NAUSEA Propranolol HCl (Inderal Tab*) 80 mg PO BID MARIZOL Tiotropium [place] (Spiriva Cap.Inh*) 1 cap INH DAILY [facility] Vital Signs 11/09/16 11/09/16 11/09/16 14:00 15:00 16:00 Temperature 98.8 F 99.2 F Pulse Rate 101 98 99 Respiratory 10 20 19 Rate Blood Pressure 126/74 113/75 122/96 (mmHg) O2 Sat by Pulse 96 98 92 Oximetry 11/09/16 11/09/16 11/09/16 17:00 17:25 18:00 Temperature 99.1 F 99.1 F Pulse Rate 91 90 Respiratory 23 17 23 Rate Blood Pressure 125/104 129/110 (mmHg) O2 Sat by Pulse 96 96 Oximetry 11/09/16 11/09/16 11/09/16 19:00 19:15 19:16 Temperature 99.2 F Pulse Rate 99 17 Respiratory 28 93 Rate Blood Pressure 129/87 (mmHg) O2 Sat by Pulse 93 93 93 Oximetry 11/09/16 11/09/16 11/09/16 20:00 21:00 21:30 Temperature 99.3 F 99.4 F Pulse Rate 96 93 Respiratory 26 26 26 Rate Blood Pressure 116/77 128/84 (mmHg) O2 Sat by Pulse 91 92 Oximetry 11/09/16 11/09/16 11/09/16 21:46 22:00 23:00 Temperature 99.3 F 99.5 F Pulse Rate 83 67 Respiratory 18 26 25 Rate Blood Pressure 137/73 124/88 (mmHg) O2 Sat by Pulse 93 95 Oximetry 11/09/16 11/10/16 11/10/16 23:36 00:00 00:01 Temperature 99.4 F 99.3 F 99.3 F Pulse Rate 67 70 70 Respiratory 23 21 20 Rate Blood Pressure 136/81 (mmHg) O2 Sat by Pulse 95 96 96 Oximetry 11/10/16 11/10/16 11/10/16 01:00 01:46 02:00 Temperature 99.4 F 99.3 F Pulse Rate 71 74 Respiratory 25 26 23 Rate Blood Pressure 115/70 129/77 (mmHg) O2 Sat by Pulse 94 93 Oximetry 11/10/16 11/10/16 11/10/16 03:00 04:00 05:00 Temperature 99.2 F 99.1 F 99.2 F Pulse Rate 74 75 78 Respiratory 26 18 29 Rate Blood Pressure 105/52 128/88 89/67 (mmHg) O2 Sat by Pulse 93 95 93 Oximetry 11/10/16 11/10/16 11/10/16 05:10 06:00 06:07 Temperature 99.2 F 99.0 F Pulse Rate 76 74 Respiratory 19 18 17 Rate Blood Pressure 139/86 134/79 (mmHg) O2 Sat by Pulse 93 94 Oximetry 11/10/16 11/10/16 11/10/16 07:00 08:00 09:00 Temperature 98.9 F 98.9 F 98.7 F Pulse Rate 72 74 72 Respiratory 20 18 20 Rate Blood Pressure 135/81 150/93 146/90 (mmHg) O2 Sat by Pulse 93 94 95 Oximetry 11/10/16 11/10/16 11/10/16 10:00 10:34 11:00 Temperature 98.7 F 98.9 F Pulse Rate 73 67 Respiratory 29 28 19 Rate Blood Pressure 166/101 142/115 (mmHg) O2 Sat by Pulse 93 96 Oximetry 11/10/16 11/10/16 11/10/16 11:06 12:00 13:00 Temperature 98.9 F Pulse Rate 67 68 70 Respiratory 22 24 20 Rate Blood Pressure 141/89 142/88 153/86 (mmHg) O2 Sat by Pulse 96 96 96 Oximetry Oxygen Devices in Use Now: None Appearance: NAD, sitting up in a chair Eyes: PERRLA Ears/Nose/Mouth/Throat: Mucous Membranes Moist Respiratory: Symmetrical Chest Expansion and Respiratory Effort, Clear to Auscultation Cardiovascular: NL Sounds; No Murmurs; No JVD, RRR Abdominal: NL Sounds; No Tenderness; No Distention Extremities: No Edema Skin: No Rash or Ulcers Neurological: Alert and Oriented x 3, NL Muscle Strength and Tone, - - 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 Mccullough is 66 yo female with PMH significant for who presented to the emergency room for - Patient Problems (1) Hemorrhagic cerebrovascular accident (CVA) Code(s): I61.9 - NONTRAUMATIC INTRACEREBRAL HEMORRHAGE, UNSPECIFIED SNOMED Code(s): 908958664 Comment: - MRI shows no signs of mets to the brain - Neurosurgery consult, input appreciated - EEG shows slowing in the right frontal region and neurology consult pending - Echo shows moderate concentric LVH, moderately decreased LV systolic fnction, global hypokinesis, EF 40-45% - Will stop dexamethasone - PT/OT and speech Therapy evals - Continue Keppra until seen by Neurology - Will check Brain CT today (2) Elevated troponin Code(s): R74.8 - ABNORMAL LEVELS OF OTHER SERUM ENZYMES SNOMED Code(s): 783706850 Comment: - Denies chest pain - No acute signs of ischemia on EKG - Suspect related to demand ischemia - No ASA/heparin in setting of intracranial hemorrhage (3) Rhabdomyolysis Code(s): M62.82 - RHABDOMYOLYSIS SNOMED Code(s): 592085846 Comment: - Resolved after IVFs (4) Electrolyte abnormality Code(s): E87.8 - OTH DISORDERS OF ELECTROLYTE AND FLUID BALANCE, NEC SNOMED Code(s): 529537761 Comment: - Hypomagnesia. Will give replacement today and recheck in the morning (5) History of CVA (cerebrovascular accident) Code(s): Z86.73 - PRSNL HX OF TIA (TIA), AND CEREB INFRC W/O RESID DEFICITS SNOMED Code(s): 999475616 Comment: - History of right cortical CVA (6) Benign essential tremor Code(s): G25.0 - ESSENTIAL TREMOR SNOMED Code(s): 537456648 Comment: - Dx noted. mod to severe tremor UE's. (7) Hypertension Code(s): I10 - ESSENTIAL (PRIMARY) HYPERTENSION SNOMED Code(s): 36344784 Comment: - Normotensive - Resume Losartan - Continue propanolol and Hydralazine prn SBP >160 (8) CAD (coronary artery disease) Code(s): I25.10 - ATHSCL HEART DISEASE OF [place] CORONARY ARTERY W/O ANG PCTRS SNOMED Code(s): 90205491 Comment: - Asymptomatic. - Hold ASA in setting of intracranial hemorrhage (9) COPD (chronic obstructive pulmonary disease) Code(s): J44.9 - CHRONIC OBSTRUCTIVE PULMONARY DISEASE, UNSPECIFIED SNOMED Code(s): 99174671 Comment: - No signs of exacerbation at this time. - Continue dulera and spiriva. (10) Chronic pain Code(s): G89.29 - OTHER CHRONIC PAIN SNOMED Code(s): 17118523 Comment: - Follows with pain clinic outpatient - No complaints of pain at this time - Hold home medications (11) GERD (gastroesophageal reflux disease) Code(s): K21.9 - GASTRO-ESOPHAGEAL REFLUX DISEASE WITHOUT ESOPHAGITIS SNOMED Code(s): 429008895 Comment: - Resume pantoprazole. (12) HLD (hyperlipidemia) Code(s): E78.5 - HYPERLIPIDEMIA, UNSPECIFIED SNOMED Code(s): 99162109 Comment: - Continue statin (13) Lung cancer Code(s): C34.90 - MALIGNANT NEOPLASM OF UNSP PART OF UNSP BRONCHUS OR LUNG SNOMED Code(s): 493069522 Comment: - No signs of brain mets - Follow with Oncology outpatient as needed (14) DVT prophylaxis Code(s): LIK5805 - SNOMED Code(s): 629146403 Comment: - SCD's - No chemical dvt prophylaxis in setting of intracranial hemorrhage (15) Full code status Code(s): Z78.9 - OTHER SPECIFIED HEALTH STATUS SNOMED Code(s): 109505300 Status and Disposition: Inpatient.
--- NOTE | 2016-11-10 15:39 | RAD ---
HISTORY: Follow-up intracranial hemorrhage COMPARISONS: November 08, 2016 TECHNIQUE: Multiple contiguous axial CT scans were obtained of the head without intravenous contrast. FINDINGS: HEMORRHAGE/INFARCT: Again noted is a right frontal intraparenchymal hematoma. There is no appreciable change in size or extent. Elsewhere, there is no hemorrhage or acute infarct. MASSES/SHIFT: There is no mass or shift. EXTRA-AXIAL SPACES: There are no extra-axial fluid collections. SULCI AND VENTRICLES: The sulci and ventricles are normal in size and position for the patient's stated age. CEREBRUM: There is stable right frontal and parietal hemorrhage with a rim of hypoattenuation consistent with edema. There is stable multifocal encephalomalacia. BRAINSTEM: There are no focal parenchymal abnormalities. CEREBELLUM: There are no focal parenchymal abnormalities. VESSELS: There is calcification of the cavernous segments of the internal carotid arteries bilaterally and of the distal vertebral arteries bilaterally. PARANASAL SINUSES: The paranasal sinuses are clear. ORBITS: The orbits are unremarkable. BONES AND SOFT TISSUE: No bone or soft tissue abnormalities are noted. OTHER: None IMPRESSION: AGAIN NOTED IS A RIGHT FRONTAL INTRAPARENCHYMAL HEMATOMA WITH A SMALL AMOUNT OF ASSOCIATED VASOGENIC EDEMA. THIS IS STABLE WHEN COMPARED TO NOVEMBER 08, 2016. THERE IS NO SHIFT.
[2016-11-10] MEDS: Tiotropium CAP.INH* CAP.INH/18 MCG INH SCH (17:34)
[2016-11-10] MEDS: Mometasone/Formoter 200/5 MDI INH SCH ×2 (17:34→19:34)
[2016-11-10] MEDS: hydrALAZINE IV* 20 MG/ML VIAL IV PRN (17:52)
[2016-11-10] MEDS ORDERED: Furosemide IV* 10 MG/ML 2 ML VIAL (20 MG) IV ONE (18:13)
[2016-11-10] MEDS ORDERED: Furosemide IV* 10 MG/ML 2 ML VIAL (20 MG) ONE (18:16)
--- NOTE | 2016-11-10 18:26 | RAD ---
INDICATION: Hypoxia COMPARISON: Chest x-ray dated October 03, 2016 TECHNIQUE: Single AP portable view of the chest was obtained. FINDINGS: Image quality is compromised due to the relative inferiority of a portable chest x-ray. Again seen is mild cardiomegaly and coarse calcification overlying the arch of the aorta. The pulmonary vasculature is mildly engorged and indistinct similar in appearance to the previous chest x-ray. There is density obscuring the left lung base and left hemidiaphragm, enlarged since the previous chest x-ray. IMPRESSION: Density obscuring the left lung base could represent worsening pleural effusion and/or consolidation of the left lower lung.
--- NOTE | 2016-11-10 18:48 | CONS ---
CONSULTATION REPORT:* ADDENDUM: MEDICATIONS: Currently include: 1. Albuterol 2.5 mg q.2 hours p.r.n. shortness of breath. 2. Lipitor 10 mg daily. 3. Tegretol 400 mg in the evening and 200 mg in the morning. 4. Hydralazine 10 mg IV q.4 hours p.r.n. 5. Cozaar 25 mg daily. 6. Dulera 2 puffs b.i.d. 7. Morphine 2 mg IV q.4 hours p.r.n. pain. 8. Omeprazole 20 mg daily. 9. Zofran 4 mg IV p.r.n. nausea. 10. Propranolol 80 mg b.i.d. ALLERGIES: She is allergic to CODEINE and ADHESIVE TAPE. REVIEW OF SYSTEMS: Negative in all 14 spheres other than in the HPI. Other than that, she has a tremulous voice which is a constant finding for her. PHYSICAL EXAM: Temperature 98.7, pulse 77, respirations 29, blood pressure 166/ 102. She was alert and oriented at this point with a tremor speech, but intact comprehension. Cranial nerves II through XII were intact. Motor exam revealed normal tone and strength. Reflexes were 1 and equal. Chest: Clear. Cardiovascular: Regular rate and rhythm. Abdomen: Soft. Positive bowel sounds. DIAGNOSTIC STUDIES/LAB DATA: Reviewed her MRI scan and her CT scan today showed the CT from today stable compared to the MRI scan from 11/08/16 in terms of her right frontal hemorrhage without any significant enhancement to suggest an underlying mass. There is small diffuse stroke in a pattern that suggests possible embolic disease. I have spoken to the hospitalist yesterday and recommended getting an echo, and the echo showed left ventricular hypertrophy, global hypokinesis of the left ventricle, no PFO. There is suggestion for a possible lung AVM. Labs include normal CBC in terms of normal platelets, hematocrit, and white count. Normal INR and PTT. Most recent CMP, there is normal calcium of 7.8, magnesium 1.8, LDL 58. UA was negative. Toxicology was positive for opiates and barbiturates. IMPRESSION: Hollie has a right frontal hemorrhagic stroke, which did not seem to be secondary to a metastasis. In the setting of multiple other strokes , it is possible this could have been embolic, but with a hemorrhagic stroke. We would not anticoagulate at this point and presumptively. She also has a lung mass, which would make anticoagulation possibly more of an issue, for now there is no specific therapy for the hemorrhagic bleed. Followup scan in a month would be appropriate and it is reasonable to have an ongoing anticonvulsant such as Tegretol at this point since she may have presented with the seizures. She had an episode of unresponsiveness with this episode. Also, we are not going to start her on Keppra because the tendency towards depression in somebody who has a possible substance abuse issue and lung cancer. Thank you for sharing her case. [id number]/[facility] #: [id number] ANDREW
--- NOTE | 2016-11-10 18:56 | CONS ---
CONTINUATION ADDENDUM NOW INCLUDED ON THIS REPORT NEUROLOGICAL CONSULTATION: DATE OF CONSULT: 11/10/16 HISTORY OF PRESENT ILLNESS: She is a 66-year-old woman who I am seeing for hemorrhagic stroke. She has a history of lung cancer, COPD, coronary artery disease, right cortical stroke, who had a recent hospitalization in October for excessive narcotic overdose. She had an MRI scan that did not show any acute findings during that hospitalization. She was admitted on 11/08/16, with an episode of unresponsiveness and was found at midnight sitting on the toilet and unresponsive. She was found to have hemorrhagic bleed as described above. She has returned clinically back to her baseline according to her. PAST MEDICAL HISTORY: She has a history of coronary artery disease, hypercholesterolemia, hypertension, rheumatic fever, asthma and COPD, and has lung cancer. She has had GERD, gallbladder disease, has past history of migraine and depression. She is status post tonsillectomy, appendectomy, leg fracture status post 4 surgeries, cardiac cath with 4 stents, cholecystectomy, stent placement to pancreas. FAMILY HISTORY: No family history of cancer. SOCIAL HISTORY: She does not drink or use street drugs. She apparently has a tendency to overusing her narcotics. She has had a history of tobacco use in the past, but not currently. CONTINUATION ADDENDUM: MEDICATIONS: Currently include: 1. Albuterol 2.5 mg q.2 hours p.r.n. shortness of breath. 2. Lipitor 10 mg daily. 3. Tegretol 400 mg in the evening and 200 mg in the morning. 4. Hydralazine 10 mg IV q.4 hours p.r.n. 5. Cozaar 25 mg daily. 6. Dulera 2 puffs b.i.d. 7. Morphine 2 mg IV q.4 hours p.r.n. pain. 8. Omeprazole 20 mg daily. 9. Zofran 4 mg IV p.r.n. nausea. 10. Propranolol 80 mg b.i.d. ALLERGIES: She is allergic to CODEINE and ADHESIVE TAPE. REVIEW OF SYSTEMS: Negative in all 14 spheres other than in the HPI. Other than that, she has a tremulous voice which is a constant finding for her. PHYSICAL EXAM: Temperature 98.7, pulse 77, respirations 29, blood pressure 166/ 102. She was alert and oriented at this point with a tremor speech, but intact comprehension. Cranial nerves II through XII were intact. Motor exam revealed normal tone and strength. Reflexes were 1 and equal. Chest: Clear. Cardiovascular: Regular rate and rhythm. Abdomen: Soft. Positive bowel sounds. DIAGNOSTIC STUDIES/LAB DATA: Reviewed her MRI scan and her CT scan today showed the CT from today stable compared to the MRI scan from 11/08/16 in terms of her right frontal hemorrhage without any significant enhancement to suggest an underlying mass. There is small diffuse stroke in a pattern that suggests possible embolic disease. I have spoken to the hospitalist yesterday and recommended getting an echo, and the echo showed left ventricular hypertrophy, global hypokinesis of the left ventricle, no PFO. There is suggestion for a possible lung AVM. Labs include normal CBC in terms of normal platelets, hematocrit, and white count. Normal INR and PTT. Most recent CMP, there is normal calcium of 7.8, magnesium 1.8, LDL 58. UA was negative. Toxicology was positive for opiates and barbiturates. IMPRESSION: Hollie has a right frontal hemorrhagic stroke, which did not seem to be secondary to a metastasis. In the setting of multiple other strokes , it is possible this could have been embolic, but with a hemorrhagic stroke. We would not anticoagulate at this point and presumptively. She also has a lung mass, which would make anticoagulation possibly more of an issue, for now there is no specific therapy for the hemorrhagic bleed. Followup scan in a month would be appropriate and it is reasonable to have an ongoing anticonvulsant such as Tegretol at this point since she may have presented with the seizures. She had an episode of unresponsiveness with this episode. Also, we are not going to start her on Keppra because the tendency towards depression in somebody who has a possible substance abuse issue and lung cancer. Thank you for sharing her case. [id number]/[facility] #: [id number] A- [id number]/[facility] #: [id number] ANDREW
[2016-11-11 06:16] LABS: Hematocrit 39 % (35-47); Hemoglobin 12.6 g/dl (12.0-16.0); Mean Corpuscular HGB Conc 32 g/dl (31-36); Mean Corpuscular Hemoglobin 31 pg (27-31); Mean Corpuscular Volume 97 fL (80-97); Mean Platelet Volume 8 um3 (7.4-10.4); Red Blood Count 4.07 10^6/ul (4.0-5.4); Red Cell Distribution Width 17 % (10.5-15); White Blood Count 4.9 10^3/ul (3.5-10.8)
[2016-11-11 06:33] LABS: BUN/Creatinine Ratio 14.3 (8-20); Calcium 8.2 mg/dL (8.6-10.3); EGFR African American 138.5 (>60); EGFR Non-African American 107.7 (>60); Magnesium 1.7 mg/dL (1.9-2.7); Potassium 3.4 mmol/L (3.5-5.0)
[2016-11-11] MEDS: Mometasone/Formoter 200/5 MDI INH SCH ×2 (08:45→20:07)
[2016-11-11] MEDS: Tiotropium CAP.INH* CAP.INH/18 MCG INH SCH (08:45)
[2016-11-11] MEDS: Omeprazole CAP* 20 MG PO SCH (09:29)
[2016-11-11] MEDS: Losartan TAB* 25 MG PO SCH (09:29)
[2016-11-11] MEDS: Atorvastatin* 10 MG TAB PO SCH (09:29)
[2016-11-11] MEDS: Propranolol TAB* 80 MG PO SCH ×2 (09:29→20:19)
[2016-11-11] MEDS: carBAMazepine TAB(*) 200 MG PO SCH ×2 (09:29→20:19)
[2016-11-11] MEDS ORDERED: Potassium Chlor TAB* 20 MEQ TAB.ER PO ONE (14:25)
--- NOTE | 2016-11-11 14:29 | PN ---
Subjective Date of Service: 11/11/16 Interval History: Ms. Mccullough states that she is feeling relatively well today. She does complain of back pain which is chronic and asks that her home narcotic regimen be resumed. She denies headache, vision changes, chest pain, SOB, nausea, or abdominal pain. Family History: Unchanged from Admission Social History: Unchanged from Admission Past Medical History: Unchanged from Admission Objective Active Medications: Acetaminophen (Tylenol Supp*) 650 mg [place] Q6H PRN Albuterol (Ventolin 2.5 Mg/3 Ml Neb.Lulú*) 2.5 mg INH Q2H PRN Atorvastatin Calcium (Lipitor*) 10 mg PO DAILY MARIZOL Carbamazepine (Tegretol Tab(*)) 200 mg PO QAM MARIZOL Carbamazepine (Tegretol Tab(*)) 400 mg PO BEDTIME MARIZOL Hydralazine HCl (Apresoline Iv*) 10 mg IV Q4H PRN Losartan Potassium (Cozaar Tab*) 25 mg PO DAILY MARIZOL Mometasone Furoate/Formoterol Fumar (Dulera 200/5 Mdi*) 2 puff INH BID MARIZOL Morphine Sulfate (Morphine Inj (Syringe)*) 2 mg IV Q4H PRN Omeprazole (Prilosec Cap*) 20 mg PO DAILY MARIZOL Ondansetron HCl (Zofran Inj*) 4 mg IV Q6H PRN Propranolol HCl (Inderal Tab*) 80 mg PO BID MARIZOL Tiotropium [place] (Spiriva Cap.Inh*) 1 cap INH DAILY [facility] Vital Signs 11/10/16 11/10/16 11/10/16 15:00 15:07 15:40 Temperature Pulse Rate 77 79 Respiratory 25 28 Rate Blood Pressure 171/116 147/87 158/97 (mmHg) O2 Sat by Pulse 94 84 Oximetry 11/10/16 11/10/16 11/10/16 16:00 16:01 16:05 Temperature Pulse Rate 80 80 80 Respiratory 24 18 23 Rate Blood Pressure 171/95 178/105 (mmHg) O2 Sat by Pulse 91 91 92 Oximetry 11/10/16 11/10/16 11/10/16 16:07 17:00 17:07 Temperature Pulse Rate 79 82 81 Respiratory 20 20 23 Rate Blood Pressure 155/89 164/127 168/96 (mmHg) O2 Sat by Pulse 91 92 94 Oximetry 11/10/16 11/10/16 11/10/16 17:17 17:19 17:26 Temperature Pulse Rate 80 81 80 Respiratory 26 26 24 Rate Blood Pressure 175/105 184/109 177/109 (mmHg) O2 Sat by Pulse 97 98 96 Oximetry 11/10/16 11/10/16 11/10/16 17:34 17:47 18:00 Temperature Pulse Rate 80 81 82 Respiratory 28 26 25 Rate Blood Pressure 178/109 177/114 163/137 (mmHg) O2 Sat by Pulse 94 90 92 Oximetry 11/10/16 11/10/16 11/10/16 18:29 18:50 19:00 Temperature Pulse Rate 95 95 Respiratory 28 21 18 Rate Blood Pressure 187/123 188/122 (mmHg) O2 Sat by Pulse 96 95 Oximetry 11/10/16 11/10/16 11/10/16 19:18 19:40 19:46 Temperature Pulse Rate 91 92 87 Respiratory 27 31 27 Rate Blood Pressure 184/135 166/90 (mmHg) O2 Sat by Pulse 92 97 97 Oximetry 11/10/16 11/10/16 11/10/16 19:47 20:00 21:00 Temperature 99.0 F 99.2 F Pulse Rate 80 Respiratory 25 21 Rate Blood Pressure 145/83 123/78 (mmHg) O2 Sat by Pulse 97 98 Oximetry 11/10/16 11/10/16 11/10/16 22:00 23:00 23:01 Temperature 97.6 F 98.6 F 98.6 F Pulse Rate 83 70 70 Respiratory 17 23 22 Rate Blood Pressure 133/79 99/59 (mmHg) O2 Sat by Pulse 95 97 97 Oximetry 11/10/16 11/11/16 11/11/16 23:54 00:00 00:01 Temperature 98.3 F 98.3 F 98.3 F Pulse Rate 71 71 71 Respiratory 21 23 23 Rate Blood Pressure 128/74 (mmHg) O2 Sat by Pulse 97 98 98 Oximetry 11/11/16 11/11/16 11/11/16 01:00 02:00 03:00 Temperature 98.2 F 97.8 F 97.8 F Pulse Rate 72 69 70 Respiratory 24 22 25 Rate Blood Pressure 127/84 102/66 131/79 (mmHg) O2 Sat by Pulse 96 95 94 Oximetry 11/11/16 11/11/16 11/11/16 04:00 05:00 06:00 Temperature 97.8 F 97.9 F 97.9 F Pulse Rate 67 68 72 Respiratory 22 24 22 Rate Blood Pressure 106/65 112/75 (mmHg) O2 Sat by Pulse 95 96 94 Oximetry 11/11/16 11/11/16 11/11/16 06:02 07:00 08:00 Temperature 97.9 F 97.4 F 96.8 F Pulse Rate 73 71 70 Respiratory 24 23 24 Rate Blood Pressure 132/75 129/70 144/76 (mmHg) O2 Sat by Pulse 95 96 96 Oximetry 11/11/16 11/11/16 11/11/16 08:55 09:00 10:00 Temperature 96.8 F 97.0 F Pulse Rate 71 68 66 Respiratory 21 21 23 Rate Blood Pressure 115/67 147/91 (mmHg) O2 Sat by Pulse 94 92 94 Oximetry 11/11/16 11/11/16 11/11/16 11:00 12:00 13:00 Temperature 97.4 F 97.6 F 98.0 F Pulse Rate 62 64 63 Respiratory 24 22 22 Rate Blood Pressure 129/87 112/72 108/78 (mmHg) O2 Sat by Pulse 95 96 96 Oximetry Oxygen Devices in Use Now: None Appearance: Female lying in bed in NAD Eyes: No Scleral Icterus Ears/Nose/Mouth/Throat: Mucous Membranes Moist Neck: Trachea Midline Respiratory: Symmetrical Chest Expansion and Respiratory Effort, Clear to Auscultation Cardiovascular: NL Sounds; No Murmurs; No JVD, No Edema Abdominal: NL Sounds; No Tenderness; No Distention Lymphatic: No Cervical Adenopathy Extremities: No Edema Skin: No Rash or Ulcers Neurological: Alert and Oriented x 3, NL Muscle Strength and Tone Nutrition: Taking PO's Result Diagrams: 11/11/16 06:09 11/11/16 06:09 Microbiology and Other Data: Microbiology 11/08/16 03:50 Nasal Screen MRSA (PCR)(MAYNOR) - Final Nasal Mrsa Negative Assess/Plan/Problems-Billing Assessment: Ms. Mccullough is 66 yo female with PMH significant for who presented to the emergency room with an episode of unresponsiveness found to have acute hemorrhagic CVA. - Patient Problems (1) Hemorrhagic cerebrovascular accident (CVA) Comment: - Patient A/O x 3, back to baseline. - CT brain shows no change in hemorrhage. MRI shows no signs of mets to the brain. - Neurosurgery consulted, no surgical intervention indicated. - EEG shows slowing in the right frontal region. Appreciate neurology consult, switch to tegretol for seizure prophylaxis. - Continue PT/OT and ST. (2) SOB (shortness of breath) Comment: - Resolved. Patient had episode of increased SOB yesterday. - Suspect secondary to pulmonary edema, with suspected component of chronic diastolic heart failure. Plan to check echo in setting of concomitant elevated in troponin on arrival. - Responded well to lasix. (3) Elevated troponin Comment: - Denies chest pain, but did have episode of SOB yesterday. - No acute signs of ischemia on EKG. - Plan to check echocardiogram. - No ASA/heparin in setting of intracranial hemorrhage. (4) Hypertension Comment: - Normotensive. - Continue Losartan. (5) Electrolyte abnormality Comment: - Replete K and Mag. - Monitor. (6) Benign essential tremor Comment: - Continue propanolol. (7) CAD (coronary artery disease) Comment: - Hold ASA in setting of intracranial hemorrhage (8) COPD (chronic obstructive pulmonary disease) Comment: - No signs of exacerbation at this time. - Continue dulera and spiriva. (9) Chronic pain Comment: - Follows with pain clinic outpatient. - Resume home dilaudid. Patient does not want to resume fentanyl patch as she says "it doesn't work." (10) GERD (gastroesophageal reflux disease) Comment: - Continue pantoprazole. (11) HLD (hyperlipidemia) Comment: - Continue statin. (12) Lung cancer Comment: - No metastasis noted on CT brain. - Follow with Oncology outpatient as needed. (13) Full code status (14) DVT prophylaxis Comment: - SCD's. - No chemical DVT prophylaxis in setting of intracranial hemorrhage. Status and Disposition: Inpatient. Anticipate discharge to home when medically stable.
[2016-11-11] MEDS: HYDROmorphone TAB* 4 MG PO PRN ×2 (15:33→20:19)
[2016-11-12] MEDS: Morphine INJ* 2 MG/ML 1 ML SYRINGE IV PRN ×5 (00:30→20:42)
[2016-11-12] MEDS: HYDROmorphone TAB* 4 MG PO PRN ×4 (03:55→16:43)
[2016-11-12] MEDS: Mometasone/Formoter 200/5 MDI INH SCH ×2 (07:55→19:37)
[2016-11-12] MEDS: Tiotropium CAP.INH* CAP.INH/18 MCG INH SCH (07:55)
[2016-11-12] MEDS: Omeprazole CAP* 20 MG PO SCH (08:17)
[2016-11-12] MEDS: Propranolol TAB* 80 MG PO SCH ×2 (08:18→20:42)
[2016-11-12] MEDS: Losartan TAB* 25 MG PO SCH (08:18)
[2016-11-12] MEDS: Magnesium Oxide TAB* 400 MG PO SCH (08:18)
[2016-11-12] MEDS: carBAMazepine TAB(*) 200 MG PO SCH ×2 (08:18→20:42)
[2016-11-12] MEDS: Atorvastatin* 10 MG TAB PO SCH (08:18)
--- NOTE | 2016-11-12 08:24 | PN ---
Subjective Date of Service: 11/12/16 Interval History: Ms. Mccullough states that she is doing fairly well today. She has no specific complaints and denies chest pain, SOB, nausea, or abdominal pain. Family History: Unchanged from Admission Social History: Unchanged from Admission Past Medical History: Unchanged from Admission Objective Active Medications: Acetaminophen (Tylenol Supp*) 650 mg [place] Q6H PRN Albuterol (Ventolin 2.5 Mg/3 Ml Neb.Lulú*) 2.5 mg INH Q2H PRN Atorvastatin Calcium (Lipitor*) 10 mg PO DAILY MARIZOL Carbamazepine (Tegretol Tab(*)) 200 mg PO QAM MARIZOL Carbamazepine (Tegretol Tab(*)) 400 mg PO BEDTIME MARIZOL Hydralazine HCl (Apresoline Iv*) 10 mg IV Q4H PRN Hydromorphone HCl (Dilaudid Tab*) 4 mg PO Q4H PRN Losartan Potassium (Cozaar Tab*) 25 mg PO DAILY MARIZOL Magnesium Oxide (Magox 400 Tab*) 400 mg PO DAILY MARIZOL Mometasone Furoate/Formoterol Fumar (Dulera 200/5 Mdi*) 2 puff INH BID MARIZOL Morphine Sulfate (Morphine Inj (Syringe)*) 2 mg IV Q4H PRN Omeprazole (Prilosec Cap*) 20 mg PO DAILY MARIZOL Ondansetron HCl (Zofran Inj*) 4 mg IV Q6H PRN Propranolol HCl (Inderal Tab*) 80 mg PO BID MARIZOL Tiotropium Robertson (Spiriva Cap.Inh*) 1 cap INH DAILY MARIZOL Vital Signs 11/11/16 11/11/16 11/11/16 08:55 09:00 10:00 Temperature 96.8 F 97.0 F Pulse Rate 71 68 66 Respiratory 21 21 23 Rate Blood Pressure 115/67 147/91 (mmHg) O2 Sat by Pulse 94 92 94 Oximetry 11/11/16 11/11/16 11/11/16 11:00 12:00 13:00 Temperature 97.4 F 97.6 F 98.0 F Pulse Rate 62 64 63 Respiratory 24 22 22 Rate Blood Pressure 129/87 112/72 108/78 (mmHg) O2 Sat by Pulse 95 96 96 Oximetry 11/11/16 11/11/16 11/11/16 14:00 15:00 15:33 Temperature 97.9 F 97.5 F Pulse Rate 66 69 Respiratory 19 24 16 Rate Blood Pressure 135/86 151/104 (mmHg) O2 Sat by Pulse 95 96 Oximetry 11/11/16 11/11/16 11/11/16 17:09 19:45 20:07 Temperature 98.4 F Pulse Rate 73 75 Respiratory 18 16 16 Rate Blood Pressure 136/73 (mmHg) O2 Sat by Pulse 99 96 Oximetry 11/11/16 11/11/16 11/11/16 20:14 20:19 22:35 Temperature 97.9 F Pulse Rate 73 Respiratory 16 16 20 Rate Blood Pressure 127/71 (mmHg) O2 Sat by Pulse 98 Oximetry 11/11/16 11/12/16 11/12/16 23:55 00:30 01:30 Temperature 97.3 F Pulse Rate 66 Respiratory 24 20 18 Rate Blood Pressure 105/51 (mmHg) O2 Sat by Pulse 96 Oximetry 11/12/16 11/12/16 11/12/16 03:39 03:55 05:47 Temperature 97.9 F Pulse Rate 69 Respiratory 26 16 16 Rate Blood Pressure 94/71 (mmHg) O2 Sat by Pulse 97 Oximetry 11/12/16 11/12/16 11/12/16 05:55 06:47 07:43 Temperature 97.7 F Pulse Rate 73 Respiratory 16 20 24 Rate Blood Pressure 110/75 (mmHg) O2 Sat by Pulse 96 Oximetry 11/12/16 11/12/16 07:57 08:18 Temperature Pulse Rate 74 Respiratory 14 20 Rate Blood Pressure (mmHg) O2 Sat by Pulse 94 Oximetry Oxygen Devices in Use Now: None Appearance: Elderly female sitting up in bed in NAD Eyes: No Scleral Icterus Ears/Nose/Mouth/Throat: Mucous Membranes Moist Neck: Trachea Midline Respiratory: Symmetrical Chest Expansion and Respiratory Effort, Clear to Auscultation Cardiovascular: NL Sounds; No Murmurs; No JVD, No Edema Abdominal: NL Sounds; No Tenderness; No Distention Lymphatic: No Cervical Adenopathy Extremities: No Edema Skin: No Rash or Ulcers Neurological: Alert and Oriented x 3, NL Muscle Strength and Tone, - - Generally weak Nutrition: Taking PO's Result Diagrams: 11/11/16 06:09 11/11/16 06:09 Microbiology and Other Data: Microbiology 11/08/16 03:50 Nasal Screen MRSA (PCR)(MAYNOR) - Final Nasal Mrsa Negative Assess/Plan/Problems-Billing Assessment: Ms. Mccullough is 66 yo female with PMH significant for who presented to the emergency room with an episode of unresponsiveness found to have acute hemorrhagic CVA. - Patient Problems (1) Hemorrhagic cerebrovascular accident (CVA) Comment: - Patient A/O x 3, back to baseline. - CT brain shows no change in hemorrhage. MRI shows no signs of mets to the brain. - Neurosurgery consulted, no surgical intervention indicated. - EEG shows slowing in the right frontal region. Appreciate neurology consult, continue tegretol for seizure prophylaxis. - Continue PT/OT and ST. (2) SOB (shortness of breath) Comment: - Resolved. Patient had episode of increased SOB 11/10/16. - Suspect secondary to pulmonary edema, with acute on chronic systolic heart failure. Echo done 11/09/16 showing EF 40-45% - Responded well to lasix. (3) Elevated troponin Comment: - Denies chest pain, but did have episode of SOB yesterday likely related to CHF , now resolved. - Trop peaked at 0.35. No acute signs of ischemia on EKG. - Suspect demand ischemia in setting of stress. - No ASA/heparin in setting of intracranial hemorrhage. Patient also not a candidate for stress test or cardiac cath at this time with recent hemorrhage. (4) Hypertension Comment: - Normotensive. - Continue Losartan. (5) Electrolyte abnormality Comment: - Replete K and Mag. - Monitor. (6) Benign essential tremor Comment: - Continue propanolol. (7) CAD (coronary artery disease) Comment: - Hold ASA in setting of intracranial hemorrhage (8) COPD (chronic obstructive pulmonary disease) Comment: - No signs of exacerbation at this time. - Continue dulera and spiriva. (9) Chronic pain Comment: - Follows with pain clinic outpatient. - Resume home dilaudid. Patient does not want to resume fentanyl patch as she says "it doesn't work." (10) GERD (gastroesophageal reflux disease) Comment: - Continue pantoprazole. (11) HLD (hyperlipidemia) Comment: - Continue statin. (12) Lung cancer Comment: - No metastasis noted on CT brain. - Follow with Oncology outpatient as needed. (13) Full code status (14) DVT prophylaxis Comment: - SCD's. - No chemical DVT prophylaxis in setting of intracranial hemorrhage. Status and Disposition: Inpatient. Patient had been living independently but is now requiring PT. May need subacute rehab.
--- NOTE | 2016-11-12 11:14 | RAD ---
HISTORY: Shortness of breath COMPARISONS: November 10, 2016 VIEWS:1: Single frontal portable view of the chest at 10:58 AM FINDINGS: LINES AND TUBES: None. CARDIOMEDIASTINAL SILHOUETTE: The cardiomediastinal silhouette is normal for portable technique. PLEURA: There is a small left pleural effusion LUNG PARENCHYMA: There is patchy alveolar opacification of the lung bases bilaterally, greater on the left than on the right. This is progressed from the previous examination. ABDOMEN: The upper abdomen is clear. There is no subphrenic gas. BONES AND SOFT TISSUES: No bone or soft tissue abnormalities are noted. IMPRESSION: 1. LEFT PLEURAL EFFUSION. 2. BIBASILAR ATELECTASIS VERSUS CONSOLIDATION, PROGRESSED FROM NOVEMBER 10, 2016
[2016-11-13] MEDS: HYDROmorphone TAB* 4 MG PO PRN ×2 (03:08→13:17)
[2016-11-13] MEDS: Tiotropium CAP.INH* CAP.INH/18 MCG INH SCH (08:02)
[2016-11-13] MEDS: Mometasone/Formoter 200/5 MDI INH SCH (08:02)
[2016-11-13] MEDS: Losartan TAB* 25 MG PO SCH (09:11)
[2016-11-13] MEDS: Atorvastatin* 10 MG TAB PO SCH ×2 (09:11→09:22)
[2016-11-13] MEDS: Magnesium Oxide TAB* 400 MG PO SCH (09:11)
[2016-11-13] MEDS: carBAMazepine TAB(*) 200 MG PO SCH (09:11)
[2016-11-13] MEDS: Omeprazole CAP* 20 MG PO SCH (09:11)
[2016-11-13] MEDS: Propranolol TAB* 80 MG PO SCH (09:11)
[2016-11-13] MEDS: Morphine INJ* 2 MG/ML 1 ML SYRINGE IV PRN (11:41)
[2016-11-13 12:03] VITALS: BP 152/90
--- NOTE | 2016-11-13 13:34 | DS ---
CC: Dr. Jeong; Dr. Mayers * DISCHARGE SUMMARY: DATE OF ADMISSION: 11/08/16 DATE OF DISCHARGE: 11/13/16 PRIMARY CARE PROVIDER: Dr. Jeong. CONSULTING NEUROLOGIST: Dr. Mayers. CONSULTING NEUROSURGEON: Dr. Fontaine. DISCHARGING PROVIDER: ZACK Ha SUPERVISING PHYSICIAN: Ingris Baker DO * (DICTATED BY ZACK HA) PRIMARY DISCHARGE DIAGNOSES: 1. Hemorrhagic cerebrovascular accident without focal neurologic deficits, but patient still requires additional physical therapy, occupational therapy, and speech therapy services. No intervention recommended by Neurosurgery. 2. Elevated troponin likely secondary to demand ischemia without evidence of acute coronary syndrome. 3. Hypokalemia and hypomagnesemia - resolved. SECONDARY DISCHARGE DIAGNOSES: 1. Remote history of lung cancer without noted metastasis on intracranial imaging. 2. Hypertension. 3. Benign essential tremor. 4. Coronary artery disease without evidence of acute coronary syndrome, aspirin has been held in the setting of acute intracranial hemorrhage. 5. Chronic obstructive pulmonary disease without evidence of acute exacerbation. 6. Chronic pain, followed by outpatient pain clinic. 7. Gastroesophageal reflux disease. 8. Hyperlipidemia. DISCHARGE MEDICATIONS: 1. Symbicort 150/4.5 two puffs inhaled twice daily. 2. Flaxseed 1000 mg p.o. daily. 3. Dilaudid 4 mg p.o. q.4 hours as needed for pain. 4. Losartan 25 mg p.o. daily. 5. Protonix 40 mg p.o. daily. 6. Lyrica 150 mg p.o. daily. 7. Primidone 100 mg p.o. twice daily. 8. Propranolol 80 mg p.o. twice daily. 9. Crestor 5 mg p.o. daily. 10. Spiriva 1 capsule inhale daily. 11. Varenicline tartrate 1 mg p.o. daily. 12. Tegretol 200 mg in the morning and 400 mg in the evening. 13. Fentanyl patch 100 mcg per hour, replaced every 72 hours. MEDICATION CHANGES: Start Tegretol as described above. HOSPITAL IMAGIN. CT of the brain 11/08/16 shows a 2.6 cm frontal intraparenchymal hematoma with no shift. There are chronic small vessel ischemic changes with evidence of multiple prior infarcts. 2. CT of the cervical spine demonstrates degenerative changes and diffuse osteoarthritis. There is multilevel neuroforaminal narrowing and narrowing of the central canal. 3. MRI of the brain again shows the same right frontal hemorrhage without shift. There is no appreciable associated abnormal enhancement to suggest an underlying mass. Additionally, there is scattered small foci of restricted diffusion within the cerebral hemispheres bilaterally with minimal associated enhancement suggesting multiple small subacute infarcts and multiple vascular territories, which would suggest embolic disease. 4. CT of the brain 11/10/16 demonstrates a right frontal intraparenchymal hematoma with small amount of associated vasogenic edema, it appears stable when compared to November 08 imaging and no associated shift. 5. Chest x-ray 11/10/16 demonstrates a density obscuring the left lung base, which could represent worsening pleural effusion or consolidation. 6. Chest x-ray 11/12/16 demonstrates a left pleural effusion, bibasilar atelectasis. 7. Transthoracic echocardiogram demonstrates mild to moderate LVH, moderately decreased left ventricular systolic function with an ejection fraction of 40% to 45%. Right ventricle also has some global reduction in function that is read as mild. No focal wall motion abnormalities. Elevated right ventricular systolic pressure noted at 44 mmHg consistent with moderate pulmonary hypertension. No significant valvular disease. 8. EEG demonstrates slowing in the right frontal head region suggestive of underlying structural reason, no clear seizure potentials are noted. HOSPITAL COURSE: This is a 66-year-old female with a remote history of lung cancer as well as a prior history of ischemic CVA, COPD, coronary artery disease , hypertension, hyperlipidemia, GERD, chronic pain and depression, who presented to the emergency department unresponsive. She was found by her son unresponsive in the bathroom. Initial CT of the brain demonstrated a new hemorrhagic lesion in the right frontal lobe. The patient was subsequently admitted to ICU for initial management. The patient was evaluated by a neurosurgeon, Dr. Fontaine who did not recommend any neurosurgical intervention. She also had noted elevated troponin at the time of admission as high as 0.35 without significant EKG changes and due to her acute hemorrhage was not a candidate for cardiac catheterization or anticoagulation for treatment of acute coronary syndrome. The patient's level of consciousness returned back to baseline and she was evaluated by Neurology and underwent an EEG, which did not demonstrate any seizure activity. Seizure prophylaxis was recommended and the patient was started on Tegretol per the recommendation of Dr. Mayers. The patient did not demonstrate any focal neurologic deficits. She initially required nectar thickened liquids to avoid aspiration, but graduated to be able to tolerate a regular diet including thin liquids. She is overall weak and has required significant assistance including a Elena lift to get back to bed, but has been participating with physical therapy benefits from additional services. DISPOSITION AND FOLLOWUP PLAN: The patient is being discharged to [facility] for swing services, where she will require physical therapy, occupational therapy, and speech therapy. The patient should avoid all antiplatelets or other anticoagulation. Tegretol has been added for seizure prophylaxis as mentioned above. She requires followup with neurologist, Dr. Mayers, in approximately 1 month and her primary care provider following discharge from rehab. ZACK HA [id number]/[facility] #: [id number] ANDREW
== END 2016-11-13 13:45 | disposition swing bed (61) | DRG 64 ==
LOC: ED 00:18 → ICU 02:14 → MEDTELE 11-11 17:12
PROVIDERS: ADMIT Hospitalist; ATTEND Hospitalist
PROC: 4A00X4Z Measurement of Central Nervous Electrical Activity, External Approach (ICD-10-PCS; 2016-11-09)
PROC: 0T9B70Z Drainage of Bladder with Drainage Device, Via Natural or Artificial Opening (ICD-10-PCS; principal; 2016-11-10)
DX: I62.9 Nontraumatic intracranial hemorrhage, unspecified (principal); I50.23 Acute on chronic systolic (congestive) heart failure; G93.6 Cerebral edema; M62.82 Rhabdomyolysis; I24.8 Other forms of acute ischemic heart disease; E83.42 Hypomagnesemia; I27.2 Other secondary pulmonary hypertension; J98.11 Atelectasis; J44.9 Chronic obstructive pulmonary disease, unspecified; I25.10 Atherosclerotic heart disease of native coronary artery without angina pectoris; E78.5 Hyperlipidemia, unspecified; K21.9 Gastro-esophageal reflux disease without esophagitis; F32.9 Major depressive disorder, single episode, unspecified; G89.4 Chronic pain syndrome; E66.01 Morbid (severe) obesity due to excess calories; E78.00 Pure hypercholesterolemia, unspecified; M54.5 Low back pain; M47.9 Spondylosis, unspecified; M17.0 Bilateral primary osteoarthritis of knee; M19.012 Primary osteoarthritis, left shoulder; M19.011 Primary osteoarthritis, right shoulder; G43.909 Migraine, unspecified, not intractable, without status migrainosus; R40.2362 Coma scale, best motor response, obeys commands, at arrival to emergency department; R40.2242 Coma scale, best verbal response, confused conversation, at arrival to emergency department; R40.2132 Coma scale, eyes open, to sound, at arrival to emergency department; R74.8 Abnormal levels of other serum enzymes; G25.0 Essential tremor; R06.02 Shortness of breath; I11.0 Hypertensive heart disease with heart failure; E87.6 Hypokalemia; R53.1 Weakness; Z86.73 Personal history of transient ischemic attack (TIA), and cerebral infarction without residual deficits; Z88.5 Allergy status to narcotic agent; Z91.048 Other nonmedicinal substance allergy status; Z90.722 Acquired absence of ovaries, bilateral; Z87.891 Personal history of nicotine dependence; Z82.49 Family history of ischemic heart disease and other diseases of the circulatory system; Z98.1 Arthrodesis status; Z95.5 Presence of coronary angioplasty implant and graft; Z90.49 Acquired absence of other specified parts of digestive tract; Z86.14 Personal history of Methicillin resistant Staphylococcus aureus infection; Z80.9 Family history of malignant neoplasm, unspecified; Z92.3 Personal history of irradiation; Z85.118 Personal history of other malignant neoplasm of bronchus and lung; Z79.891 Long term (current) use of opiate analgesic; Z68.28 Body mass index [BMI] 28.0-28.9, adult
CPT/HCPCS: 36415; 70450; 70553; 71010; 72125; 80048; 80053; 80061; 80307; 80320; 80329; 81003; 82140; 82550; 82553; 83605; 83690; 83735; 83880; 84443; 84484; 85025; 85610; 85730; 86140; 87641; 93005; 93306; 94640; 94760; 95819; 97530; 99232; 99406; A9270-GY; A9579; G0480; J0360; J1100; J1940; J2270; J2310; J3475

== ENCOUNTER 2016-11-17 13:58 | Inpatient (IN) | payer MEDICARE ==
[2016-11-17] MEDS ORDERED: NS 0.9% 1000 ML* 1,000 ML IV ONE (15:43)
[2016-11-17] MEDS ORDERED: Al Hydrox/Mg Hydrox/Simet LIQ* 30 ML UDC PO PRN (15:43)
[2016-11-17] MEDS ORDERED: Azithromycin IV(*) 500 MG in NS 0.9% 250 ML* 250 ML IVPB SCH (16:00)
[2016-11-17] MEDS ORDERED: Zosyn per Pharmacy* NOTE FOLLOW UP SCH (16:00)
--- NOTE | 2016-11-17 16:24 | RAD ---
HISTORY: Follow-up left lower lobe pneumonia COMPARISONS: November 17, 2016 at 12:34 AM VIEWS:1: Single frontal portable view of the chest at 4:19 PM FINDINGS: LINES AND TUBES: None. CARDIOMEDIASTINAL SILHOUETTE: The cardiomediastinal silhouette is partially obscured. PLEURA: There is a moderate left pleural effusion LUNG PARENCHYMA: There is confluent alveolar opacification of the left mid and lower lung singer, progressed from the previous examination ABDOMEN: The upper abdomen is clear. There is no subphrenic gas. BONES AND SOFT TISSUES: The patient is status post spinal fusion. Degenerative changes are noted. IMPRESSION: LEFT PLEURAL EFFUSION WITH PROGRESSIVE CONSOLIDATION OF THE LEFT MID AND LOWER LUNG
[2016-11-17 16:25] LABS: Urine Bacteria 1+ (Absent); Urine Bilirubin Negative (Negative); Urine Glucose Negative (Negative); Urine Nitrite Positive (Negative)
[2016-11-17] MEDS: NS 0.9% 1000 ML* 1,000 ML IV SCH (16:37)
[2016-11-17 16:43] LABS: Hematocrit 36 % (35-47); Hemoglobin 11.6 g/dl (12.0-16.0); Mean Corpuscular HGB Conc 32 g/dl (31-36); Mean Corpuscular Hemoglobin 31 pg (27-31); Mean Corpuscular Volume 96 fL (80-97); Mean Platelet Volume 8 um3 (7.4-10.4); Red Cell Distribution Width 15 % (10.5-15); White Blood Count 14.5 10^3/ul (3.5-10.8)
[2016-11-17 16:56] LABS: Troponin I 0.03 ng/mL (<0.04)
[2016-11-17 16:57] LABS: BUN/Creatinine Ratio 30.4 (8-20); Calcium 6.5 mg/dL (8.6-10.3); EGFR African American 138.5 (>60); EGFR Non-African American 107.7 (>60); Globulin 2.1 g/dL (2-4); Potassium 3.3 mmol/L (3.5-5.0); Total Bilirubin 0.5 mg/dL (0.2-1.0); Total Protein 4.1 g/dL (6.4-8.9)
--- NOTE | 2016-11-17 17:26 | RAD ---
HISTORY: Altered mental status, hemorrhagic conversion of stroke COMPARISONS: November 10, 2016 TECHNIQUE: Multiple contiguous axial CT scans were obtained of the head without intravenous contrast. FINDINGS: HEMORRHAGE/INFARCT: Again noted is hemorrhage of the right frontal lobe. This is similar in size with further appropriate evolutionary changes. Elsewhere, there is no hemorrhage or acute infarct. MASSES/SHIFT: There is no mass or shift. EXTRA-AXIAL SPACES: There are no extra-axial fluid collections. SULCI AND VENTRICLES: The sulci and ventricles are normal in size and position for the patient's stated age. CEREBRUM: As noted above, there is a right frontal intraparenchymal hematoma with associated vasogenic edema. This is similar in size to previous examinations. There is associated evolutionary change. There are stable multifocal encephalomalacia consistent with remote infarct. BRAINSTEM: There are no focal parenchymal abnormalities. CEREBELLUM: There are no focal parenchymal abnormalities. VESSELS: There is calcification of the cavernous segments of the internal carotid arteries bilaterally and of the distal vertebral arteries bilaterally. PARANASAL SINUSES: The paranasal sinuses are clear. ORBITS: The orbits are unremarkable. BONES AND SOFT TISSUE: No bone or soft tissue abnormalities are noted. OTHER: None IMPRESSION: 1. RIGHT FRONTAL INTRAPARENCHYMAL HEMATOMA WITH ASSOCIATED VASOGENIC EDEMA. THIS IS STABLE IN SIZE COMPARED TO THE NOVEMBER 10, 2014 EXAMINATION. THERE IS APPROPRIATE EVOLUTIONARY CHANGE TO THE BLOOD PRODUCT. 2. STABLE MULTIFOCAL ENCEPHALOMALACIA.
[2016-11-17] MEDS ORDERED: Dextrose 50% Syringe 50 ML* 25 GM/50 ML SYRINGE IV PUSH PRN (17:29)
[2016-11-17] MEDS: KCL 20 MEQ/100 ML IVPREMIX* 20 MEQ/100 ML BAG IV SCH ×2 (17:52→20:28)
[2016-11-17 18:00] LABS: Venous Bicarbonate HCO3 29.9 mmol/L (24-28)
[2016-11-17] MEDS: Mometasone/Formoter 100/5 MDI INH SCH (19:44)
[2016-11-17] MEDS: carBAMazepine TAB(*) 200 MG PO SCH (20:34)
[2016-11-17] MEDS: Docusate CAP* 100 MG PO SCH (20:34)
[2016-11-17] MEDS: ZOSYN 3.375 GM Q8H per EXTENDED INFUSION IVPB SCH ×2 (20:34)
[2016-11-17] MEDS: Primidone TAB(*) 50 MG PO SCH (20:34)
[2016-11-17] MEDS ORDERED: Propranolol TAB* 20 MG PO SCH (21:00)
[2016-11-17] MEDS ORDERED: Propranolol TAB* 80 MG PO SCH (21:00)
--- NOTE | 2016-11-17 22:20 | HP ---
CC: Dr. Jeong; Dr. Mayers; Dr. Iyer; Dr. Durbin* HISTORY AND PHYSICAL: DATE OF ADMISSION: 11/17/16 PRIMARY CARE PROVIDER: Dr. Jeong. CHIEF COMPLAINT: The patient is being transferred from [facility] to our facility to the intensive care unit with a diagnosis of altered mental status. HISTORY OF PRESENT ILLNESS: Hollie Mccullough is a 66-year-old female who originally was admitted to our facility on 11/08/16 and discharged to swing status at [facility] on 11/14/15. The patient was admitted initially for an episode of unresponsiveness and hemorrhagic stroke. The patient was seen by Neurology in consultation, placed on Tegretol for seizure prophylaxis and eventually discharged to [facility] for swing bed status. She was seen by Dr. Durbin on 11/13/16 and looked slightly dehydrated, but otherwise felt better. At that point, she was Elena lift dependent. Sometime on the night on 11/16/16, she had an episode of unresponsiveness. She was diagnosed with left lower lobe pneumonia and placed on broad spectrum antibiotics on 11/17/16 and those included azithromycin, ceftriaxone, and vancomycin. All of them were administered just before noon on 11/17/16. Dr. Durbin also noted that the patient was not regaining responsiveness after what she described as a seizure, although I was unable to discuss it with the person , who actually witnessed the episode. Nevertheless, the concern was that the patient was septic due to pneumonia and possibility of another neurologic condition in this patient with recent intracranial hemorrhage was entertained. At this point, [facility] requested for the patient to be transferred back to our facility. The patient arrived in our facility at approximately 3: 30 to 4 p.m. on 11/17/16. Initial systolic pressures were in the 60s, but then it corrected to 100 systolically. Currently, her systolic pressures are in the 90s. She received approximately 3 L of intravenous fluid boluses. She regained consciousness en route to our facility. The patient herself right now stated that she was just feeling sleepy and tired and that is why she was not responding before. She is alert and oriented x3, although somewhat slow to response though. She is currently being admitted to the intensive care unit with a diagnosis of altered mental status. I suspect this is encephalopathy due to sepsis and pneumonia. Please also note that during patient's last hospital stay, the patient was placed on Tegretol for seizure prophylaxis. She was noted to have an MRI with intracranial hemorrhage, but also several multiple ischemic infarcts that appeared to be subacute. The suspicion was that may be she had a hemorrhagic conversion or an ischemic embolic event. Nevertheless, anticoagulation was not considered or started at that time due to this that she had intracranial hemorrhage. It was recommended for the patient to have a repeat CT of the brain at approximately a month as per Dr. Mayers from Neurology. PAST MEDICAL HISTORY: 1. Lung cancer in 2013. 2. History of right cortical CVA in 2013. 3. COPD. Apparently, the patient was on 2 L at [facility]. 4. History of carotid disease with elevation of troponin during her last hospital stay to the level of 0.35. Further cardiac evaluation was not entertained due to hemorrhagic stroke and no possibility of further antiplatelet treatment. 5. Hypertension. 6. Hyperlipidemia. 7. Gastroesophageal reflux disease. 8. Depression. 9. Chronic pain syndrome with possibility of narcotic overuse. 10. Appendectomy. 11. Left oophorectomy. 12. Left total knee arthroplasty. 13. Right ankle bimalleolar fracture with ORIF in 2013. 14. History of lumbar fusion in 2006. 15. History of recent hemorrhagic stroke and possibility of multiple ischemic embolic strokes. MEDICATIONS: At [facility] included: 1. Ceftriaxone, azithromycin, and vancomycin given 1 dose just before noon on 11/17/16. 2. DuoNeb every 4 hours p.r.n. 3. Lorazepam 1 mg every 2 hours p.r.n. 4. Albuterol nebulizer on a p.r.n. basis. 5. Acetaminophen on a p.r.n. basis. 6. The patient received 1 mg of lorazepam at midnight on 11/16/16. 7. Crestor 5 mg daily. 8. Spiriva 1 inhalation daily. 9. Lyrica 150 mg daily. 10. Protonix 40 mg daily. 11. Losartan 25 mg daily. 12. Tegretol 200 mg in the morning and 400 at night. 13. Propranolol 80 mg b.i.d. 14. Primidone 100 mg b.i.d. 15. Symbicort 160 one inhalation b.i.d. 16. Dilaudid 4 mg every 4 hours p.r.n. 17. Fentanyl patch 100 mcg every 3 days. 18. Milk of magnesia on a p.r.n. basis. 19. Dulcolax 10 mg [place] p.r.n. ALLERGIES: ADHESIVE TAPE and CODEINE. FAMILY HISTORY: Mother at the age of 64 secondary to [place]. Father at 57 secondary to heart disease. There was also a brother and a sister who of heart disease. SOCIAL HISTORY: The patient has history of smoking over 40 pack years and she quit several years ago. There is no history of alcohol or drug use. She lives alone and currently is in rehab facility in [place] from where she was being transferred to our facility. Her surrogate decision making person is her son, Adan Mccullough, from [place], [place]. REVIEW OF SYSTEMS: Please see history of present illness. The patient stated that she just was tired in the morning. She herself denies cough, but the nurse assisting me with the patient today stated that she had wet cough earlier on just after patient was transferred. The patient stated that due to her history of right ankle fracture, she has always had her foot rotated outwards due to that. She so far had been Elena lift dependent at [facility]. She complains of wounds in bilateral posterior thighs after she was left on bedside commode for a longer period of time at [place]. All the remaining 14 systems were reviewed with the patient and were otherwise negative. PHYSICAL EXAMINATION GENERAL: The patient is a very pleasant 66-year-old female, who is in no acute distress. The patient is somewhat slow to respond, but is alert and oriented x3. VITAL SIGNS: Blood pressure of 92/59, heart rate of 65 and regular, respiratory rate 25, oxygen saturation 100% on 4 L of oxygen nasal cannula, temperature 99.5. HEENT: Head atraumatic, normocephalic. Eyes: Pupils equal and reactive to light and accommodation. Oropharynx clear. Mucosa moist. NECK: Supple. No JVD. No bruits bilaterally. RESPIRATORY: Crackles at the left lower lobe. Decreased breath sounds in the left lower lobe and poor air entry. The patient stated that she does not feel like she can take a deep breath. CARDIOVASCULAR: Regular rate and rhythm. No murmur. ABDOMEN: Soft, nontender. Bowel sounds present in all 4 quadrants. EXTREMITIES: There is trace bilateral pedal edema. Pulses are +2 bilaterally. There is no clubbing or cyanosis. NEUROLOGIC: Speech clear, somewhat hesitant, but clear and fluent. Motor strength is 5/5 in bilateral upper and bilateral lower extremities. SKIN: On evaluation of the skin, the patient has multiple ecchymotic areas in bilateral forearms, most likely due to venipunctures. She has stage 2 to 3 two linear wounds, localizing posterior upper thighs that are most likely related to the before mentioned history of the patient using the bedside commode for a longtime. GENITOURINARY: A Yousif was inserted after the patient's arrival to our facility with tea-colored urine. LABORATORY DATA AND DIAGNOSTIC STUDIES: Laboratory data from our hospital is pending at the time of dictation. From [facility] what I have available is blood cultures that are pending. White blood cell count was 9.9, hemoglobin of 14.2, hematocrit of 42, and platelets of 225. There were 21 bands on differential. The patient's INR was 0.95. The patient's urinalysis was not received yet. The patient's troponin was 0.043. Carbamazepine level obtained today was 7.1. The patient's CT of the brain was reported by Dr. Durbin as "old infarct in the right frontal area, right parietal area as well as right basal ganglia. There was no shift that could be noted." A chest x-ray also reported by Dr. Durbin showed an infiltrate in the middle of the left lung. I was unable to view the studies currently. They are being loaded on to our portal system. Current x-ray obtained at our facility show left pleural effusion with progressive consolidation in the left mid and lower lobes. The patient's EKG is pending at the time of dictation. ASSESSMENT AND PLAN: 1. Altered mental status in a patient with history of intracranial hemorrhage, who is still on multiple narcotics. At this point, it is multifactorial and includes most likely encephalopathy due to sepsis and use of narcotics. The patient's fentanyl is going to be discontinued and I will continue Dilaudid on a p.r.n. basis IV. The patient is going to be placed on neuro checks every [address] of the brain is going to be obtained today for comparison with [place]'s. An EEG of the brain is going to be obtained and I asked Dr. Iyer to see patient in consultation. I will also discontinue the patient's fentanyl patch as mentioned above. 2. In regards to the patient's pneumonia, most likely healthcare-acquired pneumonia with associated sepsis, hypotension, and altered mental status and encephalopathy due to sepsis. At this point, the patient was treated with ceftriaxone, azithromycin, and vancomycin. I will continue treating with Zosyn and azithromycin. The urine legionella and Streptococcus pneumoniae antigens are going to be obtained. The patient's systolic pressures are on the soft side , but she appears to respond to boluses well. I will also obtain lactic acid, which as per verbal report by Dr. Durbin from [facility] was within normal limits at [place]. 3. The patient's encephalopathy is already improving. 4. In regards to history of hypertension, the patient's systolic pressures are low at this time due to the sepsis and all her antihypertensive medications are going to be held. 5. In regards to history of intracranial hemorrhage and seizure prophylaxis, the patient's carbamazepine is going to be continued. The levels were obtained at [facility] and were within acceptable range. 6. The patient's chronic obstructive pulmonary disease is not in exacerbation. I will continue nebulizer treatment and Dulera instead of Symbicort for the time being. 7. In regards to the patient's elevated troponin, appears to be much lower than them prior. An EKG is pending at the time of dictation, but the patient complains of no chest pain, no shortness of breath. I will follow up with repeat troponins. Unfortunately, due to history of recent intracranial hemorrhage, aspirin is not going to be used. 8. For DVT prophylaxis, the patient is going to be placed on sequential compression devices and once again, anticoagulants are not going to be used due to the history of intracranial hemorrhage. 9. Code status is full. The patient's healthcare proxy/surrogate is her son, Adan. TIME SPENT: Approximately 75 minutes were spent on admission of this transferred patient, more than half that time was spent [id number] with the patient during the interview and evaluation of this patient in the intensive care unit. [id number]/[facility] #: [id number] MTDD
[2016-11-17] MEDS ORDERED: NS 0.9% 500 ML BAG* 500 ML IV ONE (23:00)
[2016-11-18] MEDS: ZOSYN 3.375 GM Q8H per EXTENDED INFUSION IVPB SCH ×6 (03:58→20:13)
[2016-11-18] MEDS: Omeprazole CAP* 20 MG PO SCH (05:21)
[2016-11-18 05:36] LABS: Hematocrit 35 % (35-47); Hemoglobin 11.4 g/dl (12.0-16.0); Mean Corpuscular HGB Conc 32 g/dl (31-36); Mean Corpuscular Hemoglobin 31 pg (27-31); Mean Corpuscular Volume 96 fL (80-97); Mean Platelet Volume 8 um3 (7.4-10.4); Red Blood Count 3.68 10^6/ul (4.0-5.4); Red Cell Distribution Width 15 % (10.5-15); White Blood Count 13.1 10^3/ul (3.5-10.8)
[2016-11-18 05:51] LABS: BUN/Creatinine Ratio 35.3 (8-20); Calcium 7.4 mg/dL (8.6-10.3); EGFR African American 154.2 (>60); EGFR Non-African American 119.9 (>60); Potassium 3.9 mmol/L (3.5-5.0)
[2016-11-18] MEDS: Mometasone/Formoter 100/5 MDI INH SCH ×2 (08:34→20:05)
[2016-11-18] MEDS: Tiotropium CAP.INH* CAP.INH/18 MCG INH SCH (08:34)
[2016-11-18] MEDS ORDERED: Spiriva Inhaler DEVICE* 1 EACH DEVICE INH ONE (09:00)
[2016-11-18] MEDS: Docusate CAP* 100 MG PO SCH ×2 (09:28→20:12)
[2016-11-18] MEDS: Primidone TAB(*) 50 MG PO SCH ×2 (09:28→20:39)
[2016-11-18] MEDS: carBAMazepine TAB(*) 200 MG PO SCH ×2 (09:28→20:13)
[2016-11-18] MEDS: HYDROmorphone TAB* 2 MG PO PRN ×3 (09:33→21:37)
[2016-11-18] MEDS: NS 0.9% 1000 ML* 1,000 ML IV SCH (09:34)
--- NOTE | 2016-11-18 11:06 | PN ---
Progress Note - Progress Note Date of Service: 11/18/16 Note: CRITICAL CARE MEDICINE Date: 11/18/16 Time: 1000 SUBJECTIVE: Patient seen and examined. PHYSICAL EXAM: Vital Signs: Reviewed. Neurologic: awake, communicating, resting tremor, adequate strength. HEENT: pupils equal. Sclera anicteric. Trachea midline. Cardiovascular: S1 S2 Respiratory: dec Bs on left, no rales. 5L O2 Abdomen: Soft, obese, nt. Extremities: Warm. Access: piv LABS: Reviewed. + strept ag IMAGING: Reviewed. Head ct in evolution; CXR with chronic left basilar scarring but further airspace disease/atelectasis and fluid sequestration MEDICATIONS: Reviewed. ASSESSMENT: 66 F [place] [facility] [place] encephalopathy - resolved Acute hypoxic resp failure - resolving LLL pna - presumed strept Recently here with unresponsiveness with hemorrhagic converted cva - which is stable and evolution. Was on tegretal for seizure prophylaxis given location but no epileptiform activity on eeg 11/09. chronic narcotic dependency PLAN: Neurologic: awake, communicating. no new intracranial findings, nor seeming seizure dynamics. on tegretal. neuro eval +/- eeg. dc neuro checks Cardiovascular: Perfusing. vol status met to a touch up now. see if she can mobilize. Respiratory: weaning off HFO2. would utilize metaneb and then to flutter valve as tolerating to see if we can improve her left sided atelectasis. Needs to cough and mobilize. Gastrointestinal: po diet. Renal/Metabolic: stable. slight chronic bicarb elevation due to compensation from copd Infectious Disease: on zosyn for hcap, and can de-escalate soon to strept coverage alone if cultures otherwise neg Hematology: stable. hsq Endocrine: stable. no insulin needs Musculoskeletal: oob. pt prn Psych/Social: social work f/u Supportive and preventative care as ordered. SUP: outpt ppi VTE prophylaxis: heparin dc mamadou Disposition: ICU today and potential floor later today or tomorrow. Code Status: Full Critical Care Time: 25min Antonia Darnell DO
[2016-11-18] MEDS: Albuterol/Ipratropium NEB.SOL* Albuterol 2.5 MG/Ipratropium 0.5 MG 3 ML INH PRN ×3 (11:14→19:40)
--- NOTE | 2016-11-18 13:50 | CONS ---
PULMONARY CONSULTATION REPORT: DATE OF CONSULT: 11/18/16 CONSULTATION REQUESTED BY: Dr. Janette Mariscal. REASON FOR CONSULT: Evaluation of left pleural effusion. HISTORY OF PRESENT ILLNESS: The patient is a 66-year-old female with history of squamous cell carcinoma of left lung diagnosed after CTA performed for evaluation of shortness of breath, which showed 2.5-cm lingular mass, for which she underwent CT-guided biopsy, that was complicated with a pneumothorax and was nondiagnostic. The patient subsequently underwent repeat biopsy and was confirmed to have squamous cell cancer, underwent mediastinoscopy, which was negative. She, however, was medically inoperable with stage 1A non-small cell lung cancer, underwent SBRT. The patient has history of COPD with PFTs showing moderately severe obstruction and severely decreased DLCO and a significant drop in diffusion capacity since XRT. The patient has history of frequent COPD exacerbations. The patient has been on Symbicort, Proventil, and Spiriva in the past. The patient is known to me from inpatient and outpatient evaluations in the past. The patient was recently admitted for altered mental status and was transferred to rehab on [facility]. The patient was noted to be having seizures at that time and was started on medications. The patient was recently diagnosed with left lower lobe pneumonia and was placed on broad- spectrum antibiotics on 11/17/16, which included azithromycin, Rocephin, and vancomycin. There was concern for possible withdrawal seizure at the facility. She was transferred to [facility] [place]. The patient has had improvement in mental status overnight. The patient is on high- flow oxygen currently. The patient also is on pain medications. She lives alone at home. The patient was also noted to have left-sided pleural effusion and atelectasis. Pulmonary consultation was requested for possible thoracentesis. The patient was seen and examined at bedside this morning. The patient responds to verbal stimuli and is able to provide history. She has denied fevers or chills at home. The patient reports headaches and drowsiness. PAST MEDICAL HISTORY: 1. Lung cancer in 2013. 2. Right-sided CVA in 2013. 3. COPD, on 2 L O2. 4. Carotid disease. 5. Hypertension. 6. Hyperlipidemia. 7. GERD. 8. Depression. 9. Chronic pain syndrome. 10. Appendectomy. 11. Left oophorectomy. 12. Left total knee arthroplasty. 13. Right ankle fracture with ORIF in 2013. 14. Lumbar fusion in 2006. 15. Hemorrhagic stroke recently and possible history of multiple ischemic embolic strokes. MEDICATIONS: While at rehab included: 1. Rocephin, azithromycin, and vancomycin, received 1 dose. 2. DuoNeb q.4 hours. 3. Ativan 1 mg every 2 hours p.r.n. 4. Albuterol p.r.n. 5. Acetaminophen p.r.n. 6. Crestor. 7. Spiriva. 8. Lyrica. 9. Protonix. 10. Losartan. 11. Tegretol. 12. Propranolol. 13. Primidone. 14. Symbicort. 15. Dilaudid. 16. Fentanyl. 17. Dulcolax. 18. Milk of magnesia. ALLERGIES: ADHESIVE TAPE and CODEINE. FAMILY HISTORY: Mother at age 64 due to [place]. Father at 57 due to heart disease. SOCIAL HISTORY: Former smoker with [id number] smoking history, quit several years ago. No alcohol or drug abuse. She is currently in rehab facility. Son is her healthcare proxy. REVIEW OF SYSTEMS: All 14 systems were reviewed and as per HPI. PHYSICAL EXAM: The patient is an obese female, in no apparent distress, responds to verbal stimuli. Vital Signs: Temperature 97.6, 99.3 through a Yousif probe this morning; heart rate 79 beats per minute; respiratory rate 24 per minute; O2 sat 100% on 40% FiO2; blood pressure 106/63. HEENT: Pupils are equal, reactive to light. Mucous membranes moist. Neck: Supple. No JVD. Respiratory: Crackles in left base and significantly decreased breath sounds on the left side. Cardiovascular: Regular. No murmurs, gallops, or rubs. Abdomen: Obese. Bowel sounds present. Extremities: Trace edema, right ankle fracture with her foot rotated outwards. Skin: Multiple ecchymotic areas in bilateral forearms, linear wounds in upper thighs. DIAGNOSTIC STUDIES/LAB DATA: Hemoglobin is 11.4 with a hematocrit of 35, white count of 13.1, platelets of 171. INR 1.0. Blood gas analysis revealed respiratory acidosis with pH of 7.31, PCO2 of 73, PO2 of 17, likely venous blood gas. Sodium 138, potassium 3.9, chloride 104, bicarb 31, BUN 18, creatinine 0.51. Chest x-ray performed on admission was personally reviewed by me, trachea slightly deviated to the left, rotated from, there is white-out on the left with minimal aeration just in the upper lobe. IMPRESSION/RECOMMENDATIONS: 66-year-old female with history of squamous cell carcinoma of left lung, status post SBRT with good response with recent admissions for altered mental status, recently found to have hemorrhagic cerebrovascular accident and possible seizures, found to have [id number] left pleural effusion versus consolidation. Given recent diagnosis of pneumonia, will need to evaluate further for possible parapneumonic effusion. Obtain consent for the procedure from the patient and the son. The patient is drowsy, however, is able to comprehend and understand the implications of the procedure and risks associated with it. I have discussed risk of pneumothorax also with the patient and her son. They are agreeable with the procedure. Will plan for the procedure this afternoon. The patient is not in acute chronic obstructive pulmonary disease exacerbation. There is also possibility of recurrence of cancer, will send the fluid for cytology. Rest of management as per primary team. Thank you for allowing me to participate in the care of your patient. Will follow up with you. [id number]/[facility] #: [id number] ANDREW
[2016-11-18] MEDS: Heparin VIAL(*) 5000 UNITS/ML VIAL (FIVE THOUSAND) SUBCUT SCH ×2 (14:29→21:37)
[2016-11-18] MEDS ORDERED: Diltiazem IV* 5 MG/ML 5 ML VIAL (for loading dose/IV Push) (25 MG) IV PUSH ONE (20:00)
[2016-11-18] MEDS ORDERED: Magnesium Hydroxide LIQ* 30 ML UDC ONE (20:07)
[2016-11-18] MEDS: Acetaminophen TAB* 325 MG PO PRN (20:13)
[2016-11-18] MEDS: Magnesium Hydroxide LIQ* 30 ML UDC PO SCH (20:33)
--- NOTE | 2016-11-18 21:22 | CONS ---
NEUROLOGY CONSULTATION: DATE OF CONSULT: 11/18/16 LOCATION: The patient is in the ICU. REQUESTING PHYSICIAN: Janette Mariscal MD REASON FOR CONSULT: Encephalopathy, possible seizure, recent stroke with hemorrhagic transformation. HISTORY OF PRESENT ILLNESS: Hollie Mccullough is a 66-year-old woman with a history of lung cancer, previous right cortical stroke in 2013 as well as hypertension, hyperlipidemia and chronic pain syndrome, who was recently admitted to our facility from 11/08/16 through 11/13/16 for an episode of unresponsiveness and hemorrhagic stroke. She was discharged to [facility] on swing bed status on 11/13/16 and had been placed on Tegretol reportedly for seizure prophylaxis. She was transferred back to our facility yesterday after apparently a prolonged period of unresponsiveness and concerns for sepsis. Review of the records document that on the night of 11/16/16, she had an episode of unresponsiveness. She was diagnosed with a left lower lobe pneumonia and placed on broad-spectrum antibiotics including azithromycin, ceftriaxone and vancomycin. There was also possibly a seizure that was witnessed but there is no description available for this episode. Upon arrival here at our facility yesterday, she was hypotensive into the 60s and then has been responsive to fluid boluses. She regained consciousness en route to our facility and Dr. Mariscal felt that her encephalopathy was improving on her arrival here. During her last hospital stay, she had an MRI that was positive for multiple ischemic infarcts in the bilateral cerebral hemispheres, but primarily in the right hemisphere with an associated hemorrhagic transformation in the right frontal region. Anticoagulation was not started at that time because of the intracranial hemorrhage, and Dr. Mayers had recommended a repeat CT scan in 1 month and consideration for antiplatelet versus anticoagulation at that time. A carbamazepine level was obtained at [facility] and was reportedly 7.1. Neurology involvement was requested secondary to her encephalopathy and this possible seizure. She had an EEG earlier today as well. PAST MEDICAL HISTORY: 1. Lung cancer in 2013. 2. History of right cortical CVA in 2013. 3. COPD. 4. Carotid artery disease. 5. Hypertension. 6. Hyperlipidemia. 7. GERD. 8. Depression. 9. Chronic pain, on narcotics. 10. Appendectomy. 11. Left oophorectomy. 12. Left total knee arthroplasty. 13. Right ankle bimalleolar fracture with ORIF in 2013. 14. Lumbar fusion in 2006. 15. Recent stroke with hemorrhagic transformation in the right frontal lobe. 16. Essential tremor. CURRENT MEDICATIONS: 1. Tylenol p.r.n. 2. Maalox p.r.n. 3. DuoNeb p.r.n. 4. Tegretol 200 mg in the morning and 400 mg at bedtime. 5. Colace b.i.d. 6. Heparin 5000 units subcu q.8. 7. Dilaudid 2 mg q.4 p.r.n. 8. Dulera b.i.d. 9. Prilosec 20 mg daily. 10. Zosyn. 11. Primidone 100 mg twice daily. 12. Spiriva q.a.m. ALLERGIES: ADHESIVE TAPE and CODEINE. FAMILY HISTORY: Mother had a heart attack. Father had heart disease as well. There is also a brother and sister who of heart disease. SOCIAL HISTORY: She quit smoking several years ago, but had a [id number] history. She lived alone prior to her stay at [facility]. REVIEW OF SYSTEMS: The patient currently reports that she feels cold and she is shaking in her bed. She now indicates that she has back pain as well as shoulder pain and ankle pain. PHYSICAL EXAM: Vital Signs: Temperature 99.4, blood pressure 170/106, heart rate when I was in the room was in the low 100s. She is 100% on 5 L of oxygen , though when I was in the room and she was talking, she was desaturating into the high 80s. On general examination, she is bundled under several blankets and indicates that she is cold. She is lying on her left side with a wedge behind her back and indicates that she cannot roll on to her back in order to participate more fully in the neurologic exam. Therefore, exam was somewhat limited. Her memory is called into question as she reports that she was ambulating at [facility] with her walker, but Dr. Mariscal's note indicates that on 11/13/16, she was Elena lift dependent. Her heart is tachycardic but regular and without obvious murmurs. Her lungs are clear posteriorly. There are no obvious carotid bruits but she was not able to hold her breath for examination. On neurologic exam, she was able to describe the cookie theft picture, she was able to name all objects on the stroke cards except for the hammock. She made a few errors when reading on the stroke cards. Her speech is clear without dysarthria. On cranial nerve testing, pupils are equal, round, and reactive from 3 to 2 mm bilaterally. Versions are full without nystagmus. Visual singer were difficult to complete in her positioning, but there appeared to possibly be a slight right lower quadrant field defect. There was no obvious extinction to double simultaneous visual stimulation. Her face appeared symmetric with full strength. Her hearing was intact to voice. The palate elevates symmetrically and the tongue is midline. On motor examination, she had good strength in the right arm. She appeared to have some mild weakness of elbow flexion and extension on the left, but she was also lying on this arm. She was able to move both legs antigravity in the bed. Sensation was intact to light touch in the upper and lower extremities, but also seemed unreliable as she indicated I was touching the outside of her right ankle when in fact I was touching inside of her left ankle. Reflexes were 2+ in the upper extremities and knees. Toes were mute. There was no ataxia in the right upper extremity on [id number] testing, but she has an intention tremor. She also has a significant vocal tremor. DIAGNOSTIC STUDIES/LAB DATA: CBC shows white count of 13.1 with 85% neutrophils. Hemoglobin is 11.4 and hematocrit is 35. Chemistry panel was remarkable for BUN to creatinine ratio 35.3 and calcium of 7.4, improved from 6.5 yesterday. LFTs were normal yesterday. Lactate was normal. Coagulation studies are normal. Her VBG yesterday showed pH of 7.31, pCO2 of 73, pO2 of 17 , bicarb of 29.9 and saturation of 28.2. Urinalysis showed nitrites, urobilinogen, 1+ leukocyte esterase, 3+ wbcs, and 1+ bacteria. Her urine strep pneumo antigen is positive. Her brain CT from yesterday was personally reviewed and shows subacute infarct in the right frontal region with some resolving intraparenchymal hematoma. In addition, there is an old infarct of the right basal ganglia as well as the right occipital region. MRI of the brain from 11/08/16 was also personally reviewed. The DWI sequence shows small area of restricted diffusion in the left parietal lobe as well as areas of restricted diffusion in the right frontal region with associated intraparenchymal hematoma, a small focus of restricted diffusion in the posterior and medial right parietal lobe as well as in the high left frontal lobe. EEG was performed earlier and was notable for right occipital slowing and occasional discharges now, but no seizures noted. IMPRESSION: Hollie Mccullough is a 66-year-old woman with multiple vascular risk factors who recently experienced embolic-appearing strokes with associated hemorrhagic transformation in the right frontal region and was placed on Tegretol presumably for seizure prophylaxis related to this intraparenchymal hematoma. She was transferred to [facility] and then sent back here when she became septic, also with a period of prolonged unresponsiveness and possibly a seizure. The patient herself indicates that she was just tired and wanted to sleep, but she is not the most reliable informant at this point. Certainly, her EEG shows evidence of increased epileptic potential in the right parietal occipital region and she should remain on the present dose of carbamazepine. If needed, the dose could be increased to 400 mg twice daily as her level was within therapeutic range, but certainly with room to increase if needed. At this point, she should remain off anticoagulants, though with her resolving right frontal hematoma, she could be started on baby aspirin for secondary stroke prevention. She will need to be monitored closely for any changes in her neurologic status. Otherwise, some of her encephalopathy is obviously likely due to her underlying infection and the fact that she was septic when she came in yesterday. Thank you for this consultation. If I can be of further assistance during Ms. Mccullough's hospital stay, please do not hesitate to let me know. [id number]/[facility] #: [id number] ANDREW
[2016-11-19] MEDS: Albuterol/Ipratropium NEB.SOL* Albuterol 2.5 MG/Ipratropium 0.5 MG 3 ML INH PRN ×4 (00:15→23:29)
[2016-11-19] MEDS: Magnesium Hydroxide LIQ* 30 ML UDC PO SCH (00:24)
[2016-11-19] MEDS: HYDROmorphone TAB* 2 MG PO PRN ×3 (02:24→15:15)
[2016-11-19] MEDS: ZOSYN 3.375 GM Q8H per EXTENDED INFUSION IVPB SCH ×6 (05:02→21:25)
[2016-11-19 06:17] LABS: Hematocrit 31 % (35-47); Hemoglobin 10.2 g/dl (12.0-16.0); Mean Corpuscular HGB Conc 33 g/dl (31-36); Mean Corpuscular Hemoglobin 31 pg (27-31); Mean Corpuscular Volume 95 fL (80-97); Mean Platelet Volume 8 um3 (7.4-10.4); Red Blood Count 3.25 10^6/ul (4.0-5.4); Red Cell Distribution Width 15 % (10.5-15); White Blood Count 8.1 10^3/ul (3.5-10.8)
[2016-11-19] MEDS: Heparin VIAL(*) 5000 UNITS/ML VIAL (FIVE THOUSAND) SUBCUT SCH ×3 (06:27→21:02)
[2016-11-19] MEDS: Omeprazole CAP* 20 MG PO SCH (06:28)
[2016-11-19 06:32] LABS: BUN/Creatinine Ratio 27.7 (8-20); Calcium 7.7 mg/dL (8.6-10.3); EGFR African American 169.5 (>60); EGFR Non-African American 131.8 (>60); Magnesium 1.6 mg/dL (1.9-2.7); Phosphorus 2.3 mg/dL (2.5-5.0); Potassium 3.2 mmol/L (3.5-5.0)
[2016-11-19] MEDS: Tiotropium CAP.INH* CAP.INH/18 MCG INH SCH (08:48)
[2016-11-19] MEDS: Mometasone/Formoter 100/5 MDI INH SCH ×2 (08:48→20:07)
[2016-11-19] MEDS: Primidone TAB(*) 50 MG PO SCH ×2 (09:42→21:01)
[2016-11-19] MEDS: Docusate CAP* 100 MG PO SCH ×2 (09:42→21:02)
[2016-11-19] MEDS: carBAMazepine TAB(*) 200 MG PO SCH ×2 (09:42→21:01)
[2016-11-19] MEDS ORDERED: Magnesium Sulf 4 GM/100 ML IV* 4,000 MG/100 ML BAG IVPB ONE (10:30)
--- NOTE | 2016-11-19 10:45 | PN ---
Progress Note - Progress Note Date of Service: 11/19/16 Note: CRITICAL CARE MEDICINE Date: 11/19/16 Time: 930 SUBJECTIVE: Patient seen and examined. PHYSICAL EXAM: Vital Signs: Reviewed. Neurologic: awake, communicating, adequate strength. HEENT: pupils equal. Sclera anicteric. Trachea midline. Cardiovascular: S1 S2 Respiratory: dec Bs on left still, no rales. 5L O2 Abdomen: Soft, obese, nt. Extremities: Warm. Access: piv LABS: Reviewed. IMAGING: Reviewed. MEDICATIONS: Reviewed. ASSESSMENT: 66 F septic encephalopathy - resolved Acute hypoxic resp failure - resolving LLL pna - presumed strept Recently here with unresponsiveness with hemorrhagic converted cva - which is stable and in evolution. tegretal for seizure prophylaxis chronic narcotic dependency weak kp uti PLAN: Neurologic: awake, communicating. continued Tegretol. Cardiovascular: Perfusing. vol status ok. mobilize. add back outpt propranolol and losartan today Respiratory: NC. still needs pulm toliet. flutter valve, coughing. see if she can improve her atelectasis. pulm f/u a good idea in case she can't improve and needs further therapeutic diagnostics. Gastrointestinal: po diet. Renal/Metabolic: stable. Infectious Disease: on zosyn for hcap and can complete course vs narrow spectrum soon. Hematology: stable. hsq. start asa along with neuro recs Endocrine: stable. no insulin needs Musculoskeletal: oob. pt Psych/Social: social work f/u Supportive and preventative care as ordered. SUP: outpt ppi VTE prophylaxis: heparin Disposition: floor today, still needs some pulm work Code Status: Full Critical Care Time: 25min FJulia Darnell DO
[2016-11-19] MEDS: Losartan TAB* 25 MG PO SCH (10:59)
[2016-11-19] MEDS: Potassium Chlor TAB* 20 MEQ TAB.ER PO SCH ×3 (11:00→21:02)
--- NOTE | 2016-11-19 12:01 | EEG ---
ELECTROENCEPHALOGRAPHY: DATE OF STUDY: 11/18/16 - ROOM #408 ORDERING PHYSICIAN: Janette Mariscal MD HISTORY: This is a 66-year-old woman who has had a right hemorrhagic stroke and was recently discharged from [facility] to [facility]. On 11/17/16 she was transferred back for altered mental status with episodes of unresponsiveness concerning for seizure. She has been diagnosed with left lower lobe pneumonia. She has been on Tegretol for seizure prophylaxis. EEG is requested to evaluate for epileptiform abnormalities. MEDICATIONS: 1. Dilaudid. 2. Maalox. 3. Tylenol. 4. Prilosec. 5. Zithromax. 6. Zosyn. 7. Mysoline. 8. Colace. 9. Tegretol. DESCRIPTION: The most notable feature of the interictal background was the presence of intermittent slowing in the right hemisphere, which was maximal in the right parietooccipital region with extension into the left occipital region as well. This slowing was polymorphic and mixed frequency, often with sharp contours. Intermixed within this slowing were occasional epileptiform discharges of spike and slow wave morphology. These are maximal typically at T6 with a field to T4, but occasionally maximal at T6 and O2. Otherwise, the waking background showed an appropriate organization with clearly defined anterior to posterior voltage and frequency gradients. There was a well-defined posterior dominant rhythm of 7 Hz which was symmetrical, but slower than expected for age. Anteriorly, there was an expected pattern of low voltage, irregular, mixed faster frequencies. Attenuation of the occipital rhythm accompanied drowsiness, but there were no well developed sleep spindles indicated the transition of stage 2 sleep. IMPRESSION: This is an abnormal waking and drowsy EEG due to the presence of intermittent slowing in the right hemisphere which is maximal in the parietooccipital region and intermixed epileptiform discharges in this region as well. These findings are suggestive of increased epileptic potential on the right parietooccipital region. Otherwise, the back-ground is notable for a slow posterior dominant rhythm which is suggestive of superimposed, mild, nonspecific, diffuse encephalopathy. [id number]/[facility] #: [id number] [facility]
[2016-11-19] MEDS: Propranolol TAB* 80 MG PO SCH ×2 (13:15→21:02)
[2016-11-19] MEDS ORDERED: hydrALAZINE IV* 20 MG/ML VIAL ONE (21:42)
[2016-11-19] MEDS: hydrALAZINE IV* 20 MG/ML VIAL IV PRN (21:44)
[2016-11-19] MEDS ORDERED: Morphine INJ* 2 MG/ML 1 ML SYRINGE IV ONE (22:45)
[2016-11-19] MEDS ORDERED: Morphine INJ* 2 MG/ML 1 ML SYRINGE ONE (22:48)
[2016-11-20] MEDS ORDERED: PROCHLORPERAZINE INJ 5 MG/ML 2 ML VIAL IV PRN (00:28)
[2016-11-20] MEDS: ZOSYN 3.375 GM Q8H per EXTENDED INFUSION IVPB SCH ×6 (04:52→20:20)
[2016-11-20] MEDS: Omeprazole CAP* 20 MG PO SCH (04:53)
[2016-11-20] MEDS: Heparin VIAL(*) 5000 UNITS/ML VIAL (FIVE THOUSAND) SUBCUT SCH ×3 (04:53→20:26)
[2016-11-20 06:18] LABS: Hematocrit 44 % (35-47); Hemoglobin 13.9 g/dl (12.0-16.0); Mean Corpuscular HGB Conc 32 g/dl (31-36); Mean Corpuscular Hemoglobin 31 pg (27-31); Mean Corpuscular Volume 96 fL (80-97); Mean Platelet Volume 9 um3 (7.4-10.4); Red Blood Count 4.51 10^6/ul (4.0-5.4); Red Cell Distribution Width 16 % (10.5-15); White Blood Count 9.9 10^3/ul (3.5-10.8)
[2016-11-20 06:35] LABS: BUN/Creatinine Ratio 27.5 (8-20); Calcium 8.8 mg/dL (8.6-10.3); EGFR African American 204.1 (>60); EGFR Non-African American 158.7 (>60); Magnesium 2.4 mg/dL (1.9-2.7); Potassium 4.9 mmol/L (3.5-5.0)
[2016-11-20] MEDS: Mometasone/Formoter 100/5 MDI INH SCH ×2 (08:33→20:00)
[2016-11-20] MEDS: Tiotropium CAP.INH* CAP.INH/18 MCG INH SCH (08:34)
[2016-11-20] MEDS: Docusate CAP* 100 MG PO SCH ×2 (08:35→20:26)
[2016-11-20] MEDS: carBAMazepine TAB(*) 200 MG PO SCH ×2 (08:35→20:25)
[2016-11-20] MEDS: Aspirin Low Dose CHEW TAB* 81 MG PO SCH (08:35)
[2016-11-20] MEDS: Losartan TAB* 25 MG PO SCH (08:35)
[2016-11-20] MEDS: Potassium Chlor TAB* 20 MEQ TAB.ER PO SCH (08:35)
[2016-11-20] MEDS: Propranolol TAB* 80 MG PO SCH ×2 (08:36→20:26)
[2016-11-20] MEDS: Primidone TAB(*) 50 MG PO SCH ×2 (08:37→20:26)
[2016-11-20] MEDS: HYDROmorphone TAB* 2 MG PO PRN ×2 (08:38→20:39)
--- NOTE | 2016-11-20 14:49 | PN ---
Subjective Date of Service: 11/20/16 Interval History: HOSPITALIST PROGRESS NOTE Patient seen and examined at bedside. She offers no complaints at this time. Able to tell me she's in the hospital because she had a stroke and pneumonia, but speech is very slow and it takes her multiple tries to tell me everything she wants to say. Denies dyspnea, c/o pain on her left side when she takes a deep breath. Family History: Unchanged from Admission Social History: Unchanged from Admission Past Medical History: Unchanged from Admission Objective Active Medications: Acetaminophen (Tylenol Tab*) 650 mg PO Q4H PRN PRN Reason: FEVER/PAIN Last Admin: 11/18/16 20:13 Dose: 650 mg Al Hydrox/Mg Hydrox/Simethicone (Maalox Plus*) 30 ml PO Q6H PRN PRN Reason: INDIGESTION Albuterol/Ipratropium (Duoneb (Albuterol 2.5 Mg/Ipratropium 0.5 Mg)) 1 neb INH Q4H PRN PRN Reason: SOB/WHEEZING Last Admin: 11/19/16 23:29 Dose: 1 neb Aspirin (Aspirin Low Dose Tab*) 81 mg PO DAILY [facility] Last Admin: 11/20/16 08:35 Dose: 81 mg Carbamazepine (Tegretol Tab(*)) 200 mg PO QAM [facility] Last Admin: 11/20/16 08:35 Dose: 200 mg Carbamazepine (Tegretol Tab(*)) 400 mg PO BEDTIME [facility] Last Admin: 11/19/16 21:01 Dose: 400 mg Dextrose (D50w Syringe 50 Ml*) 25 gm IV PUSH ONCE PRN PRN Reason: FS < 60 Last Admin: 11/17/16 17:52 Dose: 25 gm Docusate Sodium (Colace Cap*) 100 mg PO BID [facility] Last Admin: 11/20/16 08:35 Dose: 100 mg Heparin Sodium (Porcine) (Heparin Vial(*)) 5,000 units SUBCUT Q8HR [facility] Last Admin: 11/20/16 12:40 Dose: 5,000 units Hydralazine HCl (Apresoline Iv*) 10 mg IV Q4H PRN PRN Reason: Systolic >170 Last Admin: 11/19/16 21:44 Dose: 10 mg Hydromorphone HCl (Dilaudid Tab*) 2 mg PO Q4H PRN PRN Reason: PAIN Last Admin: 11/20/16 08:38 Dose: 2 mg Piperacillin Sod/Tazobactam (Sod 3.375 gm/ Sodium Chloride) 100 mls @ 25 mls/ hr IVPB Q8H [facility] Last Admin: 11/20/16 12:40 Dose: 25 mls/hr Losartan Potassium (Cozaar Tab*) 25 mg PO DAILY [facility] Last Admin: 11/20/16 08:35 Dose: 25 mg Mometasone Furoate/Formoterol Fumar (Dulera 100/5 Mdi*) 2 puff INH BID [facility] Last Admin: 11/20/16 08:33 Dose: 2 puff Omeprazole (Prilosec Cap*) 20 mg PO DAILY@0600 [facility] Last Admin: 11/20/16 04:53 Dose: 20 mg Pharmacy Consult (Zosyn Per Pharmacy*) 1 note FOLLOW UP .ZOSYN PER PHARMACY [facility] Primidone (Mysoline Tab(*)) 100 mg PO BID [facility] Last Admin: 11/20/16 08:37 Dose: 100 mg Propranolol HCl (Inderal Tab*) 80 mg PO BID [facility] Last Admin: 11/20/16 08:36 Dose: 80 mg Tiotropium [place] (Spiriva Cap.Inh*) 1 cap INH QAM [facility] Last Admin: 11/20/16 08:34 Dose: 1 cap Vital Signs 11/20/16 11/20/16 11/20/16 10:00 10:38 12:47 Temperature 97.3 F Pulse Rate 60 Respiratory 18 16 18 Rate Blood Pressure 138/76 139/83 (mmHg) O2 Sat by Pulse 95 97 Oximetry Oxygen Devices in Use Now: Nasal Cannula - 6 liters Appearance: Elderly lady sitting up in bed in [employer]. Eyes: No Scleral Icterus Ears/Nose/Mouth/Throat: Mucous Membranes Moist Neck: Trachea Midline Respiratory: Symmetrical Chest Expansion and Respiratory Effort, - - BS+ bilaterally coarse, decreased in left base Cardiovascular: RRR - Normal S1 and S2 Abdominal: NL Sounds; No Tenderness; No Distention Neurological: - - AAOx2 (self and place), SOLIS Lines/Tubes/Other Access: Clean, Dry and Intact Peripheral IV Nutrition: Taking PO's Result Diagrams: 11/20/16 05:48 11/20/16 05:48 Assess/Plan/Problems-Billing Assessment: Mrs. Mccullough is a 66yo F with PMH of lung CA in 2014, right CVA in 2014, COPD, carotid disease, HTN, HLD, GERD, depression, chronic pain, [place] [facility] [place] and possible seizure, who was sent from [facility] with altered MS and hypoxia, found to have pneumonia. - Patient Problems (1) Severe sepsis Comment: - Patient met sepsis criteria on admission with leukocytosis and fever. - She was also encephalopathic - now resolved. - Source is pneumonia. (2) Acute hypoxemic respiratory failure Comment: - Secondary to pneumonia. - Was on vaportherm initially, now down to 6 liters. - Continue to titrate supplemental O2 down, goal SO2 around 90-91%. (3) Streptococcal pneumonia Comment: - Initially there was concern for HCAP, but pneumococcal Ag was positive in the urine. - There is some concern with aspiration too, due to her dysphagia. - Continue Zosyn #4. - Speech pathology input appreciated - mechanical soft diet and nectar thick liquids. (4) Hemorrhagic cerebrovascular accident (CVA) Comment: - Neurology input appreciated - started on low dose Aspirin for secondary stroke prevention. - PT/OT. (5) Seizure Comment: - Continue Carbamazepine. (6) Hypertension Comment: - BP was high overnigh, but now is normal. - Continue Losartan and Propranolol. (7) DVT prophylaxis Comment: - No pharmacological prophylaxis in the setting of recent intracranial hemorrhage. - SCDs. (8) Full code status Status and Disposition: Inpatient.
[2016-11-20] MEDS: hydrALAZINE IV* 20 MG/ML VIAL IV PRN (20:26)
[2016-11-20] MEDS: Pregabalin CAP(*) 50 MG PO SCH (23:45)
[2016-11-21] MEDS: Albuterol/Ipratropium NEB.SOL* Albuterol 2.5 MG/Ipratropium 0.5 MG 3 ML INH PRN ×2 (00:45→15:53)
[2016-11-21] MEDS: HYDROmorphone TAB* 2 MG PO PRN (01:02)
[2016-11-21] MEDS: ZOSYN 3.375 GM Q8H per EXTENDED INFUSION IVPB SCH ×6 (05:10→20:22)
[2016-11-21] MEDS: Heparin VIAL(*) 5000 UNITS/ML VIAL (FIVE THOUSAND) SUBCUT SCH ×3 (05:10→20:25)
[2016-11-21] MEDS: Omeprazole CAP* 20 MG PO SCH (05:10)
[2016-11-21] MEDS: Primidone TAB(*) 50 MG PO SCH ×2 (07:58→20:24)
[2016-11-21] MEDS: Losartan TAB* 25 MG PO SCH (07:58)
[2016-11-21] MEDS: Acetaminophen TAB* 325 MG PO PRN (07:59)
[2016-11-21] MEDS: Aspirin Low Dose CHEW TAB* 81 MG PO SCH (07:59)
[2016-11-21] MEDS: Propranolol TAB* 80 MG PO SCH ×2 (07:59→20:24)
[2016-11-21] MEDS: carBAMazepine TAB(*) 200 MG PO SCH ×2 (07:59→20:24)
[2016-11-21] MEDS: Docusate CAP* 100 MG PO SCH ×2 (07:59→20:24)
--- NOTE | 2016-11-21 08:17 | RAD ---
INDICATION: Pneumonia. COMPARISON: Comparison is made with a prior chest x-ray study from November 17, 2016 and an exam from November 12, 2016. TECHNIQUE: A portable view of the chest was obtained. FINDINGS: The heart appears mildly enlarged and unchanged. There is an infiltrate in the mid and left lower lung field and a small to moderate size left pleural effusion which are unchanged. In addition there is prominence of the interstitial markings which have increased suggestive of superimposed congestive heart failure. IMPRESSION: 1. LEFT MID AND LOWER LUNG FIELD INFILTRATE AND ASSOCIATED PLEURAL EFFUSION, UNCHANGED. 2. FINDINGS SUGGESTIVE OF SUPERIMPOSED CONGESTIVE HEART FAILURE, NEW.
[2016-11-21] MEDS: Mometasone/Formoter 100/5 MDI INH SCH ×2 (08:38→21:20)
[2016-11-21] MEDS: Tiotropium CAP.INH* CAP.INH/18 MCG INH SCH (08:38)
--- NOTE | 2016-11-21 14:39 | PN ---
Subjective Date of Service: 11/21/16 Interval History: HOSPITALIST PROGRESS NOTE Patient seen and examined at bedside. She offers no complaints today. Denies dyspnea or cough. Happy to read the newspaper. Family History: Unchanged from Admission Social History: Unchanged from Admission Past Medical History: Unchanged from Admission Objective Active Medications: Acetaminophen (Tylenol Tab*) 650 mg PO Q4H PRN PRN Reason: FEVER/PAIN Last Admin: 11/21/16 07:59 Dose: 650 mg Al Hydrox/Mg Hydrox/Simethicone (Maalox Plus*) 30 ml PO Q6H PRN PRN Reason: INDIGESTION Albuterol/Ipratropium (Duoneb (Albuterol 2.5 Mg/Ipratropium 0.5 Mg)) 1 neb INH Q4H PRN PRN Reason: SOB/WHEEZING Last Admin: 11/21/16 00:45 Dose: 1 neb Aspirin (Aspirin Low Dose Tab*) 81 mg PO DAILY [facility] Last Admin: 11/21/16 07:59 Dose: 81 mg Carbamazepine (Tegretol Tab(*)) 200 mg PO QAM [facility] Last Admin: 11/21/16 07:59 Dose: 200 mg Carbamazepine (Tegretol Tab(*)) 400 mg PO BEDTIME [facility] Last Admin: 11/20/16 20:25 Dose: 400 mg Dextrose (D50w Syringe 50 Ml*) 25 gm IV PUSH ONCE PRN PRN Reason: FS < 60 Last Admin: 11/17/16 17:52 Dose: 25 gm Docusate Sodium (Colace Cap*) 100 mg PO BID [facility] Last Admin: 11/21/16 07:59 Dose: 100 mg Heparin Sodium (Porcine) (Heparin Vial(*)) 5,000 units SUBCUT Q8HR [facility] Last Admin: 11/21/16 12:43 Dose: 5,000 units Hydralazine HCl (Apresoline Iv*) 10 mg IV Q4H PRN PRN Reason: Systolic >170 Last Admin: 11/20/16 20:26 Dose: 10 mg Hydromorphone HCl (Dilaudid Tab*) 2 mg PO Q4H PRN PRN Reason: PAIN Last Admin: 11/21/16 01:02 Dose: 2 mg Piperacillin Sod/Tazobactam (Sod 3.375 gm/ Sodium Chloride) 100 mls @ 25 mls/ hr IVPB Q8H [facility] Last Admin: 11/21/16 12:43 Dose: 25 mls/hr Losartan Potassium (Cozaar Tab*) 50 mg PO DAILY [facility] Last Admin: 11/21/16 07:58 Dose: 50 mg Mometasone Furoate/Formoterol Fumar (Dulera 100/5 Mdi*) 2 puff INH BID [facility] Last Admin: 11/21/16 08:38 Dose: 2 puff Omeprazole (Prilosec Cap*) 20 mg PO DAILY@0600 [facility] Last Admin: 11/21/16 05:10 Dose: 20 mg Pharmacy Consult (Zosyn Per Pharmacy*) 1 note FOLLOW UP .ZOSYN PER PHARMACY [facility] Pregabalin (Lyrica Cap(*)) 150 mg PO BEDTIME [facility] Last Admin: 11/20/16 23:45 Dose: 150 mg Primidone (Mysoline Tab(*)) 100 mg PO BID [facility] Last Admin: 11/21/16 07:58 Dose: 100 mg Propranolol HCl (Inderal Tab*) 80 mg PO BID [facility] Last Admin: 11/21/16 07:59 Dose: 80 mg Tiotropium [place] (Spiriva Cap.Inh*) 1 cap INH QAM [facility] Last Admin: 11/21/16 08:38 Dose: 1 cap Vital Signs 11/21/16 11/21/16 11/21/16 08:42 08:55 11:33 Temperature 98.8 F Pulse Rate 65 66 Respiratory 18 18 16 Rate Blood Pressure 133/67 (mmHg) O2 Sat by Pulse 99 90 Oximetry Oxygen Devices in Use Now: Nasal Cannula - 3 liters Appearance: Elderly lady sitting up in bed in [facility]. Eyes: No Scleral Icterus Ears/Nose/Mouth/Throat: Mucous Membranes Moist Neck: Trachea Midline Respiratory: Symmetrical Chest Expansion and Respiratory Effort, - - BS+ bilaterally, decreased in left base Cardiovascular: RRR - Normal S1 and S2 Abdominal: NL Sounds; No Tenderness; No Distention Neurological: - - AAOx2 (self and place), SOLIS Lines/Tubes/Other Access: Clean, Dry and Intact Peripheral IV Nutrition: Taking PO's Result Diagrams: 11/20/16 05:48 11/20/16 05:48 Assess/Plan/Problems-Billing Assessment: Mrs. Mccullough is a 66yo F with PMH of lung CA in 2013, right CVA in 2014, COPD, carotid disease, HTN, HLD, GERD, depression, chronic pain, [place] [facility] [place] and possible seizure, who was sent from [facility] with altered MS and hypoxia, found to have pneumonia. - Patient Problems (1) Severe sepsis Comment: - Patient met sepsis criteria on admission with leukocytosis and fever. - She was also encephalopathic - now resolved. - Source is pneumonia. (2) Acute hypoxemic respiratory failure Comment: - Secondary to pneumonia. - Was on vaportherm initially, now down to 3 liters. (3) Streptococcal pneumonia Comment: - Initially there was concern for HCAP, but pneumococcal Ag was positive in the urine. - There is some concern with aspiration too, due to her dysphagia. - Continue Zosyn #5. - Speech pathology input appreciated - mechanical soft diet and nectar thick liquids - tolerating it well so far. (4) Hemorrhagic cerebrovascular accident (CVA) Comment: - Neurology input appreciated - started on low dose Aspirin for secondary stroke prevention. - PT/OT. (5) Seizure Comment: - Continue Carbamazepine. (6) Hypertension Comment: - BP was high overnight, but now is better. - Increase Losartan and continue Propranolol. (7) DVT prophylaxis Comment: - No pharmacological prophylaxis in the setting of recent intracranial hemorrhage. - SCDs. (8) Full code status Status and Disposition: Inpatient.
[2016-11-21] MEDS: Pregabalin CAP(*) 50 MG PO SCH (20:24)
[2016-11-22] MEDS: HYDROmorphone TAB* 2 MG PO PRN ×3 (02:54→20:17)
[2016-11-22] MEDS: ZOSYN 3.375 GM Q8H per EXTENDED INFUSION IVPB SCH ×6 (05:22→20:21)
[2016-11-22] MEDS: Omeprazole CAP* 20 MG PO SCH (05:23)
[2016-11-22] MEDS: Heparin VIAL(*) 5000 UNITS/ML VIAL (FIVE THOUSAND) SUBCUT SCH ×3 (05:23→20:46)
[2016-11-22] MEDS: Docusate CAP* 100 MG PO SCH ×2 (08:37→20:17)
[2016-11-22] MEDS: Losartan TAB* 25 MG PO SCH (08:46)
[2016-11-22] MEDS: Aspirin Low Dose CHEW TAB* 81 MG PO SCH (08:46)
[2016-11-22] MEDS: carBAMazepine TAB(*) 200 MG PO SCH ×2 (08:46→20:18)
[2016-11-22] MEDS: Propranolol TAB* 80 MG PO SCH ×2 (08:47→20:49)
[2016-11-22] MEDS: Primidone TAB(*) 50 MG PO SCH ×2 (08:47→20:48)
[2016-11-22] MEDS: Tiotropium CAP.INH* CAP.INH/18 MCG INH SCH (09:25)
[2016-11-22] MEDS: Mometasone/Formoter 100/5 MDI INH SCH ×2 (09:26→20:20)
[2016-11-22] MEDS: Albuterol/Ipratropium NEB.SOL* Albuterol 2.5 MG/Ipratropium 0.5 MG 3 ML INH PRN (09:53)
--- NOTE | 2016-11-22 12:06 | PN ---
Subjective Date of Service: 11/22/16 Interval History: HOSPITALIST PROGRESS NOTE Patient seen and examined at bedside. She feels her breathing is easier, but gets tachypneic with exertion. Denies other complaints. Family History: Unchanged from Admission Social History: Unchanged from Admission Past Medical History: Unchanged from Admission Objective Active Medications: Acetaminophen (Tylenol Tab*) 650 mg PO Q4H PRN PRN Reason: FEVER/PAIN Last Admin: 11/21/16 07:59 Dose: 650 mg Al Hydrox/Mg Hydrox/Simethicone (Maalox Plus*) 30 ml PO Q6H PRN PRN Reason: INDIGESTION Albuterol/Ipratropium (Duoneb (Albuterol 2.5 Mg/Ipratropium 0.5 Mg)) 1 neb INH Q4H PRN PRN Reason: SOB/WHEEZING Last Admin: 11/22/16 09:53 Dose: 1 neb Aspirin (Aspirin Low Dose Tab*) 81 mg PO DAILY [facility] Last Admin: 11/22/16 08:46 Dose: 81 mg Carbamazepine (Tegretol Tab(*)) 200 mg PO QAM [facility] Last Admin: 11/22/16 08:46 Dose: 200 mg Carbamazepine (Tegretol Tab(*)) 400 mg PO BEDTIME [facility] Last Admin: 11/21/16 20:24 Dose: 400 mg Dextrose (D50w Syringe 50 Ml*) 25 gm IV PUSH ONCE PRN PRN Reason: FS < 60 Last Admin: 11/17/16 17:52 Dose: 25 gm Docusate Sodium (Colace Cap*) 100 mg PO BID [facility] Last Admin: 11/22/16 08:37 Dose: Not Given Heparin Sodium (Porcine) (Heparin Vial(*)) 5,000 units SUBCUT Q8HR [facility] Last Admin: 11/22/16 05:23 Dose: 5,000 units Hydralazine HCl (Apresoline Iv*) 10 mg IV Q4H PRN PRN Reason: Systolic >170 Last Admin: 11/20/16 20:26 Dose: 10 mg Hydromorphone HCl (Dilaudid Tab*) 2 mg PO Q4H PRN PRN Reason: PAIN Last Admin: 11/22/16 02:54 Dose: 2 mg Piperacillin Sod/Tazobactam (Sod 3.375 gm/ Sodium Chloride) 100 mls @ 25 mls/ hr IVPB Q8H [facility] Last Admin: 11/22/16 05:22 Dose: 25 mls/hr Losartan Potassium (Cozaar Tab*) 50 mg PO DAILY [facility] Last Admin: 11/22/16 08:46 Dose: 50 mg Mometasone Furoate/Formoterol Fumar (Dulera 100/5 Mdi*) 2 puff INH BID [facility] Last Admin: 11/22/16 09:26 Dose: 2 puff Omeprazole (Prilosec Cap*) 20 mg PO DAILY@0600 [facility] Last Admin: 11/22/16 05:23 Dose: 20 mg Pharmacy Consult (Zosyn Per Pharmacy*) 1 note FOLLOW UP .ZOSYN PER PHARMACY [facility] Pregabalin (Lyrica Cap(*)) 150 mg PO BEDTIME [facility] Last Admin: 11/21/16 20:24 Dose: 150 mg Primidone (Mysoline Tab(*)) 100 mg PO BID [facility] Last Admin: 11/22/16 08:47 Dose: 100 mg Propranolol HCl (Inderal Tab*) 80 mg PO BID [facility] Last Admin: 11/22/16 08:47 Dose: 80 mg Tiotropium [place] (Spiriva Cap.Inh*) 1 cap INH QAM [facility] Last Admin: 11/22/16 09:25 Dose: 1 cap Vital Signs 11/22/16 11/22/16 11:19 11:24 Temperature 98.1 F Pulse Rate 62 66 Respiratory 28 Rate Blood Pressure 151/84 (mmHg) O2 Sat by Pulse 94 94 Oximetry Oxygen Devices in Use Now: Nasal Cannula - 3 liters Appearance: Elderly lady sitting up in a chair in [facility]. Eyes: No Scleral Icterus Ears/Nose/Mouth/Throat: Mucous Membranes Moist Neck: Trachea Midline Respiratory: Symmetrical Chest Expansion and Respiratory Effort, - - BS+ bilaterally decreased in left base Cardiovascular: RRR - Normal S1 and S2 Abdominal: NL Sounds; No Tenderness; No Distention Neurological: - - AAOx2 (self and place) Nutrition: Taking PO's Result Diagrams: 11/20/16 05:48 11/20/16 05:48 Assess/Plan/Problems-Billing Assessment: Mrs. Mccullough is a 66yo F with PMH of lung CA in 2013, right CVA in 2014, COPD, carotid disease, HTN, HLD, GERD, depression, chronic pain, recent admission to [facility] for hemorrhagic stroke and possible seizure, who was sent from [facility] with altered MS and hypoxia, found to have pneumonia. - Patient Problems (1) Severe sepsis Comment: - Patient met sepsis criteria on admission with leukocytosis and fever. - She was also encephalopathic - now resolved. - Source is pneumonia. (2) Acute hypoxemic respiratory failure Comment: - Secondary to pneumonia. - Was on vaportherm initially, now down to 3 liters. Continue to titrate supplemental O2 down as tolerated. (3) Streptococcal pneumonia Comment: - Initially there was concern for HCAP, but pneumococcal Ag was positive in the urine. - There is some concern with aspiration too, due to her dysphagia. - Continue Zosyn #6. - Speech pathology input appreciated - mechanical soft diet and nectar thick liquids - tolerating it well so far. - Encourage incentive spirometry. (4) Hemorrhagic cerebrovascular accident (CVA) Comment: - Neurology input appreciated - started on low dose Aspirin for secondary stroke prevention. - PT/OT. (5) Seizure Comment: - Continue Carbamazepine. (6) Hypertension Comment: - Better controlled now. - Continue Losartan and Propranolol. (7) DVT prophylaxis Comment: - No pharmacological prophylaxis in the setting of recent intracranial hemorrhage. - SCDs. (8) Full code status Status and Disposition: Inpatient.
[2016-11-22] MEDS: Pregabalin CAP(*) 50 MG PO SCH (20:18)
[2016-11-23] MEDS: HYDROmorphone TAB* 2 MG PO PRN ×4 (01:19→22:08)
[2016-11-23] MEDS: ZOSYN 3.375 GM Q8H per EXTENDED INFUSION IVPB SCH ×6 (05:19→21:38)
[2016-11-23] MEDS: Heparin VIAL(*) 5000 UNITS/ML VIAL (FIVE THOUSAND) SUBCUT SCH ×3 (05:20→21:45)
[2016-11-23] MEDS: Omeprazole CAP* 20 MG PO SCH (05:20)
[2016-11-23] MEDS: Tiotropium CAP.INH* CAP.INH/18 MCG INH SCH (08:00)
[2016-11-23] MEDS: Mometasone/Formoter 100/5 MDI INH SCH ×2 (08:00→20:42)
[2016-11-23 08:10] LABS: Hematocrit 36 % (35-47); Hemoglobin 11.7 g/dl (12.0-16.0); Mean Corpuscular HGB Conc 32 g/dl (31-36); Mean Corpuscular Hemoglobin 31 pg (27-31); Mean Corpuscular Volume 94 fL (80-97); Mean Platelet Volume 8 um3 (7.4-10.4); Red Blood Count 3.82 10^6/ul (4.0-5.4); Red Cell Distribution Width 15 % (10.5-15); White Blood Count 6.1 10^3/ul (3.5-10.8)
[2016-11-23 08:29] LABS: BUN/Creatinine Ratio 16.3 (8-20); Calcium 8.3 mg/dL (8.6-10.3); EGFR African American 161.5 (>60); EGFR Non-African American 125.6 (>60); Potassium 3.2 mmol/L (3.5-5.0)
[2016-11-23] MEDS: Propranolol TAB* 80 MG PO SCH ×2 (09:38→21:40)
[2016-11-23] MEDS: Losartan TAB* 25 MG PO SCH (09:38)
[2016-11-23] MEDS: Primidone TAB(*) 50 MG PO SCH ×2 (09:38→21:42)
[2016-11-23] MEDS: Aspirin Low Dose CHEW TAB* 81 MG PO SCH (09:38)
[2016-11-23] MEDS: carBAMazepine TAB(*) 200 MG PO SCH ×2 (09:38→21:42)
[2016-11-23] MEDS: Docusate CAP* 100 MG PO SCH ×2 (09:38→21:42)
[2016-11-23] MEDS: Potassium Chloride LIQUID* 20 MEQ PACKET PO SCH ×2 (12:50→21:40)
--- NOTE | 2016-11-23 13:32 | PN ---
Subjective Date of Service: 11/23/16 Interval History: HOSPITALIST PROGRESS NOTE Patient seen and examined at bedside. She c/o back pain and insomnia. Breathing is good and back down on 3 liters. Family History: Unchanged from Admission Social History: Unchanged from Admission Past Medical History: Unchanged from Admission Objective Active Medications: Acetaminophen (Tylenol Tab*) 650 mg PO Q4H PRN PRN Reason: FEVER/PAIN Last Admin: 11/21/16 07:59 Dose: 650 mg Al Hydrox/Mg Hydrox/Simethicone (Maalox Plus*) 30 ml PO Q6H PRN PRN Reason: INDIGESTION Albuterol/Ipratropium (Duoneb (Albuterol 2.5 Mg/Ipratropium 0.5 Mg)) 1 neb INH Q4H PRN PRN Reason: SOB/WHEEZING Last Admin: 11/22/16 09:53 Dose: 1 neb Aspirin (Aspirin Low Dose Tab*) 81 mg PO DAILY [facility] Last Admin: 11/23/16 09:38 Dose: 81 mg Carbamazepine (Tegretol Tab(*)) 200 mg PO QAM [facility] Last Admin: 11/23/16 09:38 Dose: 200 mg Carbamazepine (Tegretol Tab(*)) 400 mg PO BEDTIME [facility] Last Admin: 11/22/16 20:18 Dose: 400 mg Dextrose (D50w Syringe 50 Ml*) 25 gm IV PUSH ONCE PRN PRN Reason: FS < 60 Last Admin: 11/17/16 17:52 Dose: 25 gm Docusate Sodium (Colace Cap*) 100 mg PO BID [facility] Last Admin: 11/23/16 09:38 Dose: 100 mg Heparin Sodium (Porcine) (Heparin Vial(*)) 5,000 units SUBCUT Q8HR [facility] Last Admin: 11/23/16 12:51 Dose: 5,000 units Hydralazine HCl (Apresoline Iv*) 10 mg IV Q4H PRN PRN Reason: Systolic >170 Last Admin: 11/20/16 20:26 Dose: 10 mg Hydromorphone HCl (Dilaudid Tab*) 2 mg PO Q4H PRN PRN Reason: PAIN Last Admin: 11/23/16 05:57 Dose: 2 mg Piperacillin Sod/Tazobactam (Sod 3.375 gm/ Sodium Chloride) 100 mls @ 25 mls/ hr IVPB Q8H [facility] Last Admin: 11/23/16 12:50 Dose: 25 mls/hr Losartan Potassium (Cozaar Tab*) 50 mg PO DAILY [facility] Last Admin: 11/23/16 09:38 Dose: 50 mg Mometasone Furoate/Formoterol Fumar (Dulera 100/5 Mdi*) 2 puff INH BID [facility] Last Admin: 11/23/16 08:00 Dose: 2 puff Omeprazole (Prilosec Cap*) 20 mg PO DAILY@0600 [facility] Last Admin: 11/23/16 05:20 Dose: 20 mg Pharmacy Consult (Zosyn Per Pharmacy*) 1 note FOLLOW UP .ZOSYN PER PHARMACY [facility] Potassium Chloride (Klor-Con Liquid*) 20 meq PO BID [facility] Last Admin: 11/23/16 12:50 Dose: 20 meq Pregabalin (Lyrica Cap(*)) 150 mg PO BEDTIME [facility] Last Admin: 11/22/16 20:18 Dose: 150 mg Primidone (Mysoline Tab(*)) 100 mg PO BID [facility] Last Admin: 11/23/16 09:38 Dose: 100 mg Propranolol HCl (Inderal Tab*) 80 mg PO BID [facility] Last Admin: 11/23/16 09:38 Dose: 80 mg Tiotropium [place] (Spiriva Cap.Inh*) 1 cap INH QAM [facility] Last Admin: 11/23/16 08:00 Dose: 1 cap Vital Signs 11/23/16 11/23/16 11/23/16 08:00 08:18 11:58 Temperature 98.2 F 98.2 F Pulse Rate 80 71 66 Respiratory 15 14 Rate Blood Pressure 146/90 155/86 (mmHg) O2 Sat by Pulse 92 86 93 Oximetry Oxygen Devices in Use Now: Nasal Cannula - 3 liters Appearance: Elderly lady sitting up in a chair in [facility]. Eyes: No Scleral Icterus Ears/Nose/Mouth/Throat: Mucous Membranes Moist Neck: Trachea Midline Respiratory: Symmetrical Chest Expansion and Respiratory Effort, - - BS+ bilaterally, decreased on left base. Cardiovascular: RRR - Normal S1 and S2 Abdominal: NL Sounds; No Tenderness; No Distention Neurological: Alert and Oriented x 3, - - SOLIS, but deconditioned Lines/Tubes/Other Access: Clean, Dry and Intact Peripheral IV Nutrition: Taking PO's Result Diagrams: 11/23/16 07:44 11/23/16 07:44 Assess/Plan/Problems-Billing Assessment: Mrs. Mccullough is a 66yo F with PMH of lung CA in 2014, right CVA in 2014, COPD, carotid disease, HTN, HLD, GERD, depression, chronic pain, recent admission to [facility] for hemorrhagic stroke and possible seizure, who was sent from [facility] status with altered MS and hypoxia, found to have pneumonia. - Patient Problems (1) Severe sepsis Comment: - Patient met sepsis criteria on admission with leukocytosis and fever. - She was also encephalopathic - now resolved. - Source is pneumonia. (2) Acute hypoxemic respiratory failure Comment: - Secondary to pneumonia. - Was on vaportherm initially, now down to 3 liters. Continue to titrate supplemental O2 down as tolerated. (3) Streptococcal pneumonia Comment: - Initially there was concern for HCAP, but pneumococcal Ag was positive in the urine. - There is some concern with aspiration too, due to her dysphagia. - Continue Zosyn #7. - Speech pathology input appreciated - mechanical soft diet and nectar thick liquids - tolerating it well so far. - Encourage incentive spirometry. (4) Hemorrhagic cerebrovascular accident (CVA) Comment: - Neurology input appreciated - started on low dose Aspirin for secondary stroke prevention. - PT/OT. (5) Seizure Comment: - Continue Carbamazepine. (6) Hypertension Comment: - Better controlled now. - Continue Losartan and Propranolol. (7) DVT prophylaxis Comment: - No pharmacological prophylaxis in the setting of recent intracranial hemorrhage. - SCDs. (8) Full code status Status and Disposition: Inpatient. Son (Adan [phone]) called and updated about patient's condition. In agreement with her return to [facility] when stable.
[2016-11-23] MEDS ORDERED: hydrALAZINE TAB* 25 MG PO SCH (21:00)
[2016-11-23] MEDS: Pregabalin CAP(*) 50 MG PO SCH (21:43)
[2016-11-23] MEDS ORDERED: Fluconazole 100 MG TAB* TAB PO ONE (22:16)
[2016-11-24] MEDS ORDERED: EPINEPHrine SYR 0.1 MG/ML* (1:10,000) SYRINGE ONE ×7 (03:37→04:07)
[2016-11-24] MEDS ORDERED: Norepinephrine 16MCG/ML IVPRE* (4 MG/250 ML) IV ONE (03:43)
[2016-11-24] MEDS ORDERED: Etomidate* 2 MG/ML 20 ML VIAL (40 MG) ONE (03:46)
[2016-11-24] MEDS ORDERED: Succinylcholine* 20 MG/ML 10 ML VIAL ONE (03:48)
--- NOTE | 2016-11-24 04:20 | PN ---
Progress Note - Progress Note Date of Service: 11/24/16 Note: ABC alert called. Patient found unresponsive. No detectable pulse. No respirations. Pupils dilated. ACLS protocol initiated. 4 epis and 2 bicarbs given. Pulse detected. Patient intubated. Brought to ICU. Patient coded again. ACLS protocol initiated again. pulse recovered after 2 epis. Epi drip initiated as well as Levophed and saline wide open. Called son and advised him of his mothers very tenuous situation. Advised Dr. Glover as well. Labs and imaging pending.
[2016-11-24 04:26] LABS: Hematocrit 40 % (35-47); Hemoglobin 12.5 g/dl (12.0-16.0); Mean Corpuscular HGB Conc 31 g/dl (31-36); Mean Corpuscular Hemoglobin 30 pg (27-31); Mean Corpuscular Volume 98 fL (80-97); Mean Platelet Volume 9 um3 (7.4-10.4); Red Blood Count 4.09 10^6/ul (4.0-5.4); Red Cell Distribution Width 16 % (10.5-15); White Blood Count 12.5 10^3/ul (3.5-10.8)
[2016-11-24 04:45] LABS: Troponin I 0.06 ng/mL (<0.04)
[2016-11-24 04:53] LABS: BUN/Creatinine Ratio 12.5 (8-20); Blood Urea Nitrogen 7 mg/dL (6-24); CO2 Carbon Dioxide 29 mmol/L (22-32); Calcium 7.3 mg/dL (8.6-10.3); Chloride 101 mmol/L (101-111); EGFR African American 138.5 (>60); EGFR Non-African American 107.7 (>60); Glucose 217 mg/dL (70-100); Phosphorus 4.8 mg/dL (2.5-5.0); Sodium 137 mmol/L (133-145)
[2016-11-24] MEDS ORDERED: DOBUTamine 2000 MCG/ML IVPREMX 500 MG/250 ML BAG IV ONE (05:07)
[2016-11-24 05:14] LABS: Anion Gap 7 mmol/L (2-11)
[2016-11-24 06:11] LABS: FIO2 100; Resp Rate 25
[2016-11-24 06:14] LABS: PCO2 Arterial 71 mmHg (35-45)
[2016-11-24] MEDS: Omeprazole CAP* 20 MG PO SCH (06:44)
[2016-11-24] MEDS: Heparin VIAL(*) 5000 UNITS/ML VIAL (FIVE THOUSAND) SUBCUT SCH ×2 (06:55→15:51)
[2016-11-24] MEDS: ZOSYN 3.375 GM Q8H per EXTENDED INFUSION IVPB SCH ×4 (06:55→13:25)
[2016-11-24] MEDS: Norepinephrine 16MCG/ML IVPRE* 4,000 MCG/250 ML BAG IV SCH ×3 (07:20→13:26)
[2016-11-24] MEDS ORDERED: NS 0.9% 1000 ML* 1,000 ML IV ONE (07:45)
--- NOTE | 2016-11-24 08:06 | RAD ---
HISTORY: Tube placement COMPARISONS: November 21, 2016 VIEWS:1: Single frontal portable view of the chest at 5:50 AM FINDINGS: LINES AND TUBES: An endotracheal tube is noted with the tip overlying the trachea between the clavicles and the mike. A gastric tube is noted with the tip in the left upper quadrant in a prepyloric position. CARDIOMEDIASTINAL SILHOUETTE: The cardiomediastinal silhouette is stable. PLEURA: There is a small left pleural effusion LUNG PARENCHYMA: There is confluent alveolar opacities in the left lung base, similar to the previous examination, with progressive alveolar opacification of the right lower lung. Additionally, there is a diffuse pattern of reticular opacification. ABDOMEN: The upper abdomen is clear. There is no subphrenic gas. BONES AND SOFT TISSUES: No bone or soft tissue abnormalities are noted. IMPRESSION: 1. LINES AND TUBES ABOVE. 2. PERSISTENT LEFT LOWER LOBE CONSOLIDATION WITH DEVELOPING RIGHT LOWER LOBE CONSOLIDATION. 3. PULMONARY INTERSTITIAL EDEMA 4. SMALL LEFT PLEURAL EFFUSION
[2016-11-24] MEDS: EPINEPHrine AMP 1 MG/ML* 1 MG in D5W 250 ML BAG* 250 ML IVPB SCH ×6 (08:11→20:26)
--- NOTE | 2016-11-24 08:19 | PN ---
Critical Care Services: Patient suffered a cardiac arrest x 2 earLier this AM (between 4 - 5 AM) found with a mouth full of vomitus, so etiology may be aspiration. Now in ICU on epineprine and levophed drips. Did not awaken. Vital Signs: Temp Pulse Resp BP SpO2 FiO2 96.7 F 57 14 110/34 79 100 Physical Exam: Gen:Unresponsive HEENT:Pupils and corneals reactive. No gag. Lungs: Coarse rhonchi bilaterally Cardiac: Reg rhythm Abdomen: Not ditended Extremities: warm. No cyanosis. Neuro:No localization to deep pain, but does move all extremities. Cranial nerve reflexes as above. Fluid Balance (Past 24 Hours): 11/25/16 06:59 Intake Total 2409.3 Output Total Balance 2409.3 Intake: IV Fluids 2000 ABX - ZOSYN NS (0.9%) 2000 IVPB ABX - ZOSYN Medicated IV 409.3 CC - Dobutamine 40.3 CC - Epinephrine 153 CC - Norepinephrine/ 216 Levophed Oral Output: Urine Other: Estimated Void Date of Last Bowel Movement # Bowel Movements Estimated Stool Amount # Voids Labs: Laboratory Results - last 24 hr 11/23/16 11/23/16 11/24/16 07:44 07:44 04:11 WBC 6.1 RBC 3.82 L Hgb 11.7 L Hct 36 MCV 94 MCH 31 MCHC 32 RDW 15 Plt Count 207 MPV 8 Neut % (Auto) 74.7 Lymph % (Auto) 14.1 L [place] % (Auto) 8.8 Eos % (Auto) 1.2 Baso % (Auto) 1.2 Absolute Neuts (auto) 4.5 Absolute Lymphs (auto) 0.9 L Absolute Monos (auto) 0.5 Absolute Eos (auto) 0.1 Absolute Basos (auto) 0.1 Absolute Nucleated RBC 0 Nucleated RBC % 0 Patient Temperature ABG pH ABG pCO2 ABG pO2 ABG HCO3 ABG O2 Saturation ABG Base Excess Respiration Rate O2 Delivery Device Ventilator Type Vent Mode FiO2 Inspiratory Time PEEP Pressure Support Pressure Control EPAP IPAP BiPAP Sodium 140 137 Potassium 3.2 L TNP Chloride 98 L 101 Carbon Dioxide 39 H 29 Anion Gap 3 7 BUN 8 7 Creatinine 0.49 L 0.56 Est GFR ( Amer) 161.5 138.5 Est GFR (Non-Af Amer) 125.6 107.7 BUN/Creatinine Ratio 16.3 12.5 Glucose 88 217 H Lactic Acid Calcium 8.3 L 7.3 L Phosphorus 4.8 Troponin I 0.06 H* Blood Type Antibody Screen 11/24/16 04:11 WBC 12.5 H RBC 4.09 Hgb 12.5 Hct 40 MCV 98 H MCH 30 MCHC 31 RDW 16 H Plt Count 220 MPV 9 11/24/16 06:00 ABG pH 7.33 ABG pCO2 71 ABG pO2 58 ABG HCO3 32.0 ABG O2 Saturation 93.5 L ABG Base Excess 9.2 H Respiration Rate 25 O2 Delivery Device vent Ventilator Type Not Reportable Vent Mode pcv FiO2 100 Inspiratory Time .8 PEEP 10 Pressure Support Not Reportable Pressure Control 30 Studies: CXR: Consolidation/opacification at left base. EKG: No acute ST or T wave changes. Nutrition: NPO at this time. Impression: Cardiac arrest - most likely cause is aspiration of vomitus. Cannot R/O pulmonary embolism (not a candidate for TPA because of recent hemorrhagic stroke ) or transient arrythmia (seems unlikely). Prognosis poor considering multiple arrests with persistent coma, and the need for two vasopressors. Plan: 1. Because patient has not awoken, we have started targeted temperature management, with target of 36 degrees Celcius for 24 hrs. 2. Have ordered cardiac ECHO and venous ECHO of LEs. 3. Will get serial troponins. Family (son and sisters) present at bedside, and are aware of the current situation. Patient is currently a full code but family is considering a DNR order. Critical Care Time: 60 minutes (not including time spent with family).
[2016-11-24] MEDS: Mometasone/Formoter 100/5 MDI INH SCH (09:02)
[2016-11-24] MEDS: Tiotropium CAP.INH* CAP.INH/18 MCG INH SCH (09:03)
--- NOTE | 2016-11-24 09:14 | RAD ---
INDICATION: Intubation COMPARISON: Chest x-ray is dated November 24, 2016 TECHNIQUE: Single AP portable view of the chest was obtained. FINDINGS: Image quality is compromised due to the relative inferiority of a portable chest x-ray. The endotracheal tube appears to be located at least the level of the mike if not in the superior most portion of the right mainstem bronchus. There are AED pads again noted on the chest. There is density of securing the bilateral lung bases causing obscuration of the left hemidiaphragm. Air bronchograms are noted overlying the right middle and lower lobes. IMPRESSION: 1. Endotracheal tube tip appears to be located at the mike or perhaps even in the superior most portion of the right mainstem bronchus. Please consider retracting the tube approximately 5 cm. 2. Worsening appearance of pulmonary edema likely with a left lower lobe pleural effusion.
[2016-11-24] MEDS: carBAMazepine TAB(*) 200 MG PO SCH (09:47)
[2016-11-24] MEDS: Primidone TAB(*) 50 MG PO SCH (09:47)
[2016-11-24] MEDS: Potassium Chloride LIQUID* 20 MEQ PACKET PO SCH (09:47)
--- NOTE | 2016-11-24 09:47 | RAD ---
HISTORY: Central line placement COMPARISONS: November 24, 2016 at 5:00 AM VIEWS:1: Single frontal portable view of the chest at 9:25 AM. The right costophrenic angle is cut off. FINDINGS: LINES AND TUBES: An endotracheal tube is noted with the tip overlying the trachea between the clavicles and the mike. A right internal jugular venous catheter is noted with the tip overlying the superior vena cava. A gastric tube is noted. The tip is below the [id number] of the current examination but is below the diaphragm. CARDIOMEDIASTINAL SILHOUETTE: The cardiomediastinal silhouette is stable. PLEURA: There is a moderate left pleural effusion. There is no appreciable pneumothorax. LUNG PARENCHYMA: There is confluent alveolar opacification lung bases bilaterally, greater on the left than on the right ABDOMEN: The upper abdomen is clear. There is no subphrenic gas. BONES AND SOFT TISSUES: No bone or soft tissue abnormalities are noted. IMPRESSION: 1. LIMITED STUDY. 2. LINES AND TUBES ABOVE. 3. AGAIN NOTED IS A LEFT PLEURAL EFFUSION WITH BIBASILAR CONSOLIDATION
[2016-11-24] MEDS ORDERED: D5W 250 ML BAG* 250 ML ONE (10:18)
[2016-11-24] MEDS ORDERED: EPINEPHrine AMP 1 MG/ML* 1 MG in D5W 250 ML BAG* 250 ML IVPB SCH ×2 (11:00→12:30)
[2016-11-24] MEDS ORDERED: Thrombin 5,000 UNITS* 1 APPLIC KIT - topical use - TOPICAL ONE (11:30)
[2016-11-24] MEDS ORDERED: Thrombin 5,000 UNITS* 1 APPLIC KIT - topical use - TOPICAL PRN (13:43)
[2016-11-24] MEDS ORDERED: NS 0.9% 500 ML BAG* 500 ML IV ONE (14:00)
[2016-11-24] MEDS ORDERED: Meperidine SYRINGE* 50 MG/ML IV PRN (15:14)
--- NOTE | 2016-11-24 18:02 | PRO ---
PROCEDURE NOTE: DATE OF PROCEDURE: 11/24/16 - ROOM #ICU-03 PROCEDURE: Insertion of a central venous catheter. HISTORY: This patient is a 66-year-old white female who suffered a cardiac arrest on the floor and was brought to the intensive care unit following return of spontaneous circulation. Patient was hypotensive and comatose on admission to the ICU. A central venous catheter was deemed necessary for infusion of vasopressors and other medications. A 7.5 Setswana triple-lumen catheter was inserted into the right internal jugular vein under ultrasound guidance. Proper position of the catheter tip was verified by a postprocedural chest x- ray. There was no evidence of pneumothorax. [id number]/[facility] #: [id number] [facility]
[2016-11-24] MEDS ORDERED: Morphine INJ* 10 MG/ML 1 ML SYRINGE IV PRN (19:49)
[2016-11-24] MEDS ORDERED: LORazepam VIAL (for drip)* 100 MG in D5W 50 ML BAG* 50 ML IVPB SCH (20:00)
[2016-11-24] MEDS ORDERED: Morphine PCA 5 MG/ML * Titrate per Protocol PCA SCH (20:00)
[2016-11-24] MEDS ORDERED: LORazepam INJ* 2 MG/ML 1 ML VIAL IV PUSH ONE (20:00)
[2016-11-24] MEDS ORDERED: Morphine INJ* 10 MG/ML 1 ML SYRINGE IV ONE (20:00)
[2016-11-24 21:12] VITALS: BP 57/47
== END 2016-11-24 20:44 | disposition expired | DRG 871 ==
LOC: ICU 15:24 → MED 11-19 12:07 → ICU 11-24 04:43
PROVIDERS: ADMIT Internal Medicine; ATTEND Internal Medicine Critical Care Medicine
PROC: 4A00X4Z Measurement of Central Nervous Electrical Activity, External Approach (ICD-10-PCS; 2016-11-18)
PROC: 0BH17EZ Insertion of Endotracheal Airway into Trachea, Via Natural or Artificial Opening (ICD-10-PCS; principal; 2016-11-24)
PROC: 5A1935Z Respiratory Ventilation, Less than 24 Consecutive Hours (ICD-10-PCS; 2016-11-24)
PROC: 02HV33Z Insertion of Infusion Device into Superior Vena Cava, Percutaneous Approach (ICD-10-PCS; 2016-11-24)
PROC: 3E043XZ Introduction of Vasopressor into Central Vein, Percutaneous Approach (ICD-10-PCS; 2016-11-24)
DX: A41.9 Sepsis, unspecified organism (principal); G93.41 Metabolic encephalopathy; J96.01 Acute respiratory failure with hypoxia; R40.20 Unspecified coma; I62.9 Nontraumatic intracranial hemorrhage, unspecified; J90 Pleural effusion, not elsewhere classified; J15.4 Pneumonia due to other streptococci; F11.20 Opioid dependence, uncomplicated; J98.11 Atelectasis; J44.0 Chronic obstructive pulmonary disease with (acute) lower respiratory infection; I46.8 Cardiac arrest due to other underlying condition; I95.9 Hypotension, unspecified; I10 Essential (primary) hypertension; E78.5 Hyperlipidemia, unspecified; K21.9 Gastro-esophageal reflux disease without esophagitis; F32.9 Major depressive disorder, single episode, unspecified; G89.4 Chronic pain syndrome; Z96.652 Presence of left artificial knee joint; R74.8 Abnormal levels of other serum enzymes; R65.20 Severe sepsis without septic shock; R56.9 Unspecified convulsions; T17.918A Gastric contents in respiratory tract, part unspecified causing other injury, initial encounter; X58.XXXA Exposure to other specified factors, initial encounter; Y92.230 Patient room in hospital as the place of occurrence of the external cause; I65.29 Occlusion and stenosis of unspecified carotid artery; G25.0 Essential tremor; Z99.81 Dependence on supplemental oxygen; Z86.73 Personal history of transient ischemic attack (TIA), and cerebral infarction without residual deficits; Z85.118 Personal history of other malignant neoplasm of bronchus and lung; Z90.721 Acquired absence of ovaries, unilateral; Z98.1 Arthrodesis status; Z88.5 Allergy status to narcotic agent; Z91.048 Other nonmedicinal substance allergy status; Z82.49 Family history of ischemic heart disease and other diseases of the circulatory system; Z87.891 Personal history of nicotine dependence; Z92.3 Personal history of irradiation
CPT/HCPCS: 36415; 36600; 70450; 71010; 80048; 80053; 81003; 81015; 82803; 83605; 83735; 84100; 84484; 85025; 85027; 85610; 85730; 86850; 86900; 86901; 87040; 87077; 87086; 87186; 87641; 87899; 92950; 93005; 94002; 94003; 94640; 94669; 94760; 95816; A9270-GY; J0171; J0330; J0360; J0456; J1250; J1644; J2060; J2270; J2543; J3480